=== PATIENT | female | born 1945 | race Caucasian/White ===

== ENCOUNTER 2019-12-27 09:17 | Inpatient (IN) | payer MEDICARE, SELFPAY ==
[2019-12-28 03:14] VITALS: BMI 24.7
[2019-12-29] VITALS (8 sets, daily range): BP systolic 95–115; BP diastolic 56–78; PULSE 78–105; RESP 16–18; TEMP 35.9–36.6; O2SAT 95–99
[2019-12-29] MEDS: Doxycycline Hyclate 100 MG in 0.9 % Sodium Chloride 250 ML 250 MG IV
[2019-12-29] MEDS: 0.9 % Sodium Chloride Flush 3 ML SYRINGE 2 ML IVFLUSH ×4 (05:13→23:10)
[2019-12-29] MEDS: Levothyroxine Sodium 75 MCG TABLET PO (05:48)
[2019-12-29] MEDS: Albuterol/Iprat 2.5/0.5MG 3 ML AMPUL.NEB INHALE ×4 (08:13→21:03)
[2019-12-29] MEDS: Losartan Potassium 25 MG TABLET PO (08:42)
[2019-12-29] MEDS: Calcium + Vitamin D 250 MG TABLET 500 MG PO (08:42)
[2019-12-29] MEDS: Acetaminophen 325 MG TABLET 650 MG PO (08:55)
[2019-12-29] MEDS: guaiFENesin DM 100/10/5 ML 5 ML SYRUP PO ×2 (08:55→13:51)
[2019-12-29] MEDS: Aspirin 81 MG TAB.CHEW PO (08:56)
[2019-12-29] MEDS: Metoprolol Succinate ER 50 MG TAB.ER.24H PO (08:56)
[2019-12-29] MEDS: Multivitamin TABLET 1 TAB PO (08:57)
--- NOTE | 2019-12-29 09:20 | P.PNPL_ITS ---
Objective Data Labs CBC & Chem 7: 12/27/19 07:23 12/27/19 07:23 Labs: Laboratory Results - last 24 hr 12/27/19 12/27/19 12/27/19 07:23 07:23 07:23 WBC 7.6 RBC 4.54 Hgb 14.2 Hct 43.0 MCV 94.7 MCH 31.3 MCHC 33.0 RDW Coeff of Jose 13.3 Plt Count 226 MPV 9.3 L Immature Gran % (Auto) 0.4 Neut % (Auto) 61.6 Lymph % (Auto) 24.2 Valencia % (Auto) 7.8 Eos % (Auto) 5.5 H Baso % (Auto) 0.5 Abs Immat Gran (auto) 0.03 Absolute Lymphs (auto) 1.8 Absolute Monos (auto) 0.6 Absolute Eos (auto) 0.4 Absolute Basos (auto) 0.0 Absolute Nucleated RBC 0.000 Nucleated RBC % (auto) 0.0 Absolute Neutrophils 4.7 ESR Hold Blue Top Sodium 141 Potassium 4.7 D Chloride 109 H Bicarbonate 23 Anion Gap 14 BUN 13 Creatinine 1.04 Estimated Creat Clear 41.9 Est GFR (Non-Af Amer) 52 Random Glucose 132 H Magnesium 2.1 Total Bilirubin 0.5 Direct Bilirubin 0.2 AST 21 ALT 16 Alkaline Phosphatase 111 Troponin I High Sens < 3.5 B-Natriuretic Peptide 12 Total Protein 6.5 Albumin 4.3 SARS-CoV-2 IgG Ab 12/27/19 12/27/19 12/27/19 07:23 13:51 13:51 WBC RBC Hgb Hct MCV MCH MCHC RDW Coeff of Jose Plt Count MPV Immature Gran % (Auto) Neut % (Auto) Lymph % (Auto) Valencia % (Auto) Eos % (Auto) Baso % (Auto) Abs Immat Gran (auto) Absolute Lymphs (auto) Absolute Monos (auto) Absolute Eos (auto) Absolute Basos (auto) Absolute Nucleated RBC Nucleated RBC % (auto) Absolute Neutrophils ESR 19 Hold Blue Top SEE NOTE Sodium Potassium Chloride Bicarbonate Anion Gap BUN Creatinine Estimated Creat Clear Est GFR (Non-Af Amer) Random Glucose Magnesium Total Bilirubin Direct Bilirubin AST ALT Alkaline Phosphatase Troponin I High Sens B-Natriuretic Peptide Total Protein Albumin SARS-CoV-2 IgG Ab Negative Physical Exam Vital Signs and I&O and Narrative: Vital Signs and I&O: Vital Signs Temp 97.9 F 12/29/19 08:00 Pulse 78 12/29/19 08:56 Resp 18 12/29/19 08:00 BP 115/78 12/29/19 08:56 Pulse Ox 97 12/29/19 08:00 Intake & Output 12/28/19 12/29/19 12/29/19 18:59 06:59 18:59 Intake Total 490 / 490 Balance 490 / 490 Intake: Intake, Oral [place] unt 240 / 240 Intake, IV Amoun t 250 / 250 Doxycycline Hy clate 100 mg In 0 250 / 250 .9 % Sodium Ch loride 250 ml @ 250 mls/hr IV Q12H [facility] Rx#: [id number] Body Mass Index 24.7 Const: General: alert HENMT: General nose exam: Abnormal external nose present and Nasal discharge present Eyes: Pupils: Equal, round and reactive pupils present Neck: Neck: Yes normal visual inspection, Yes full ROM and Yes no lymphadenopathy Chest: Chest palpation & inspection: normal inspection of the chest Resp: Auscultation: diminished lung sounds Cardio: Rate: regular rate Rhythm: regular rhythm Heart sounds: S1 normal heart sound present and S2 normal heart sound present GI: Palpation (GI): Soft to palpation and nontender Auscultation: normal bowel sounds : General: Yes no CVA tenderness Back/Spine/Pelvis: Back: no CVA tenderness Skin: General skin exam: rashes and/or lesions noted Neuro: Cranial nerves: Yes Equal, round and reactive pupils present Review of Systems ENT Reports nasal congestion Card Denies chest pain Resp Reports cough GI Denies abdominal pain Musc Denies no additional musculoskeletal complaints Psych Denies no additional psychiatric complaints Elroy/Lymph Denies easy bleeding or lymphadenopathy
--- NOTE | 2019-12-29 12:25 | MHC.CM.PN ---
NURSE HEAD HOST/HOSTESS NOTE ELECTRONIC MEDICAL RECORD REVIEWED ALONG WITH CASE DISCUSSED ON PATIENT ROUNDS , MET WITH PATIENT , SHE VOICED FRUSTRATION THAT SHE FEELS SHE IS NOT GETTING ANY BETTER, PER NURSING DOCUMENTATION PATIENT GETS DYSPNEA ON EXERTIONS AND HAS EX[PIRATORY WHEEZING SHE IS ON 2LITERS OF OXYGEN , PER HOSPITALST SHE TANISHA NOT BE DISCHARGED TODAY , SHE WILL BE CHANGED TO INPATIENT STATUS , UPDATE SENT TO [facility] [phone] EXT 201 discharge plan home independent living at [facility] , with new referral to the [facility] for nursing , (asthma and cpd exacerbation , assessment and reinforcement of teaching n , diagnosis sighn symptom management , medication reconcilation, transportation patient will self arrange , if she is unable to please apoorva chaudhari at [facility] , number above and they will provide transportation (If she is on no oxygen
--- NOTE | 2019-12-29 12:33 | P.PNIM_ITS ---
Subjective Subjective Date of Service: 12/29/19 Interval History: patient admitted for shortness of breath and diagnosed with COPD exacerbation. Today patient complaining of shortness of breath and frequent,coughing spells requiring 1 L of oxygen, no other acute issues overnight. 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 no dizziness Gastrointestinal no nausea, no vomiting no urinary symptoms of urgency, no frequency Physical Exam Vital Signs and I&O and Narrative: Vital Signs and I&O: Vital Signs Temp 97.9 F 12/29/19 11:36 Pulse 105 H 12/29/19 11:36 Resp 18 12/29/19 11:36 BP 109/74 12/29/19 11:36 Pulse Ox 95 12/29/19 11:36 Intake & Output 12/28/19 12/29/19 12/29/19 18:59 06:59 18:59 Intake Total 490 / 490 480 / 480 Output Total Balance 490 / 490 479 / 479 Urine Output (Aver age ml/kg/hr) 0.00 Intake: Intake, Oral [place] unt 240 / 240 480 / 480 Intake, IV Amoun t 250 / 250 Doxycycline Hy clate 100 mg In 0 250 / 250 .9 % Sodium Ch loride 250 ml @ 250 mls/hr IV Q12H [facility] Rx#: [id number] Output: Output, Urine Am ount Other: Meal Refused No NPO No Breakfast % Eate n 100% Lunch % Eaten 100% Body Mass Index 24.7 Physical Exam Constitutional Awake and alert, no distress Neck Supple, Cardiovascular RRR, S1 S2 Respiratory no respiratory distress, bilateral expiratory wheeze, Diminished breath sounds, Diminished lung expansion, Gastrointestinal Normal bowel sounds, Non-distended, No guarding Extremities Normal capillary refill, Calf tenderness Skin Normal Color Neuro nonfocal Objective Data Current Medications Generic Name Dose Route Start Last Admin Trade Name Freq PRN Reason Stop Dose Admin Acetaminophen 650 mg 12/29/19 00:00 12/29/19 08:55 Acetaminophen 325 Mg Tablet PO 650 mg Q6H PRN Administration Pain, Mild (Pain Scale 1-3) Albuterol/Ipratropium 3 ml 12/29/19 08:00 12/29/19 11:32 Albuterol/Iprat 2.5/0.5mg 3 Ml Ampul.Neb INHALE 3 ml RQID RAMANDEEP Administration Aspirin 81 mg 12/29/19 09:00 12/29/19 08:56 Aspirin 81 Mg Tab.Chew PO 81 mg DAILY RAMANDEEP Administration Atorvastatin Calcium 20 mg 12/29/19 21:00 Atorvastatin Calcium 20 Mg Tablet PO BEDTIME [facility] Calcium Carbonate/Cholecalciferol 500 mg 12/29/19 09:00 12/29/19 08:42 Calcium + Vitamin D 250 Mg Tablet PO 500 mg DAILY RAMANDEEP Administration Enoxaparin Sodium 40 mg 12/29/19 14:00 Enoxaparin Sodium 40 Mg/0.4 Ml Syringe SUBCUT Q24H [facility] Fluticasone/Vilanterol 1 puff 12/29/19 08:00 Fluticasone/Vilanterol 200/25 Blst.W.Dev INHALE RDAILY [facility] Guaifenesin/Dextromethorphan 5 ml 12/29/19 00:00 12/29/19 08:55 Guaifenesin Dm 100/10/5 Ml 5 Ml Syrup PO 5 ml Q4H PRN Administration cough/wheeze Doxycycline Hyclate 100 mg/ 250 mls @ 250 mls/hr 12/29/19 12:00 12/29/19 01:3 0 Sodium Chloride IV Infused Q12H [facility] Infusion Levothyroxine Sodium 75 mcg 12/29/19 06:00 12/29/19 05:48 Levothyroxine Sodium 75 Mcg Tablet PO 75 mcg DAILY@0600 [facility] Administration Loratadine 10 mg 12/29/19 00:00 Loratadine 10 Mg Tablet PO DAILY PRN Allergic Symptoms Losartan Potassium 25 mg 12/29/19 09:00 12/29/19 08:42 Losartan Potassium 25 Mg Tablet PO 25 mg DAILY [facility] Administration Protocol Methylprednisolone Sodium Succinate 40 mg 12/29/19 06:00 12/29/19 05:48 Methylprednisolone Sod Succ/Pf 40 Mg/Ml Vial IVPUSH 40 mg Q8H RAMANDEEP Administration Metoprolol Succinate 50 mg 12/29/19 09:00 12/29/19 08:56 Metoprolol Succinate Er 50 Mg Tab.Er.24h PO 50 mg DAILY [facility] Administration Protocol Multivitamins/Vitamin C 1 tab 12/29/19 09:00 12/29/19 08:57 Multivitamin Tablet PO 1 tab DAILY RAMANDEEP Administration Ondansetron HCl 4 mg 12/29/19 00:00 Ondansetron Hcl 4 Mg/2 Ml Vial IVPUSH Q8H PRN Nausea and Vomiting Senna 17.2 mg 12/29/19 00:00 Sennosides 8.6 Mg Tablet PO BEDTIME PRN Constipation Sodium Chloride 2 ml 12/29/19 00:00 12/29/19 08:57 0.9 % Sodium Chloride Flush 3 Ml Syringe IVFLUSH 2 ml QSHIFT RAMANDEEP Administration Labs CBC & Chem 7: 12/27/19 07:23 12/27/19 07:23 Labs: Laboratory Results - last 24 hr 12/27/19 12/27/19 12/27/19 07:23 07:23 07:23 MCV 94.7 MCH 31.3 MCHC 33.0 RDW Coeff of Jose 13.3 Plt Count 226 MPV 9.3 L Immature Gran % (Auto) 0.4 Neut % (Auto) 61.6 Lymph % (Auto) 24.2 Clay % (Auto) 7.8 Eos % (Auto) 5.5 H Baso % (Auto) 0.5 Abs Immat Gran (auto) 0.03 Absolute Lymphs (auto) 1.8 Absolute Monos (auto) 0.6 Absolute Eos (auto) 0.4 Absolute Basos (auto) 0.0 Absolute Nucleated RBC 0.000 Nucleated RBC % (auto) 0.0 Absolute Neutrophils 4.7 ESR Hold Blue Top Bicarbonate 23 Anion Gap 14 Estimated Creat Clear 41.9 Est GFR (Non-Af Amer) 52 Random Glucose 132 H Magnesium 2.1 Total Bilirubin 0.5 Direct Bilirubin 0.2 AST 21 ALT 16 Alkaline Phosphatase 111 Troponin I High Sens < 3.5 B-Natriuretic Peptide 12 Total Protein 6.5 Albumin 4.3 SARS-CoV-2 IgG Ab 12/27/19 12/27/19 12/27/19 07:23 13:51 13:51 MCV MCH MCHC RDW Coeff of Jose Plt Count MPV Immature Gran % (Auto) Neut % (Auto) Lymph % (Auto) Clay % (Auto) Eos % (Auto) Baso % (Auto) Abs Immat Gran (auto) Absolute Lymphs (auto) Absolute Monos (auto) Absolute Eos (auto) Absolute Basos (auto) Absolute Nucleated RBC Nucleated RBC % (auto) Absolute Neutrophils ESR 19 Hold Blue Top SEE NOTE Bicarbonate Anion Gap Estimated Creat Clear Est GFR (Non-Af Amer) Random Glucose Magnesium Total Bilirubin Direct Bilirubin AST ALT Alkaline Phosphatase Troponin I High Sens B-Natriuretic Peptide Total Protein Albumin SARS-CoV-2 IgG Ab Negative Progress Note: A&P (1) Acute exacerbation of COPD with asthma: Status: Acute Assessment and Plan: patient continued to have persistent symptoms of coughing spells and shortness of breath, will continue IV antibiotics IV steroids will add schedule cough medication since patient continued to require oxygen will obtain home O2 eval prior to discharge, encourage ambulation and incentive spirometry. (2) Acute and chronic respiratory failure with hypoxia: Status: Acute Assessment and Plan: Acute hypoxic respiratory failure likely related to COPD exacerbation and respiratory infection will obtain home O2 eval prior to discharge. (3) Hypertension: Problem details: Status: Inactive Assessment and Plan: BP currently borderline low on home medication losartan and metoprolol will follow blood pressure if continued to be low then will discontinue losartan. (4) Hypothyroidism: Status: Inactive Assessment and Plan: Continue Synthroid.
[2019-12-29] MEDS: Doxycycline Hyclate 100 MG in 0.9 % Sodium Chloride 250 ML 166 MG IV ×2 (13:51→23:08)
[2019-12-29] MEDS: Enoxaparin Sodium 40 MG/0.4 ML SYRINGE SUBCUT (13:54)
[2019-12-29] MEDS: Fluticasone/Vilanterol 200/25 BLST.W.DEV 1 PUFF INHALE (15:20)
[2019-12-29] MEDS: Atorvastatin Calcium 20 MG TABLET PO (20:44)
[2019-12-29] MEDS: Sennosides 8.6 MG TABLET 17.2 MG PO (20:51)
[2019-12-30] VITALS: BP 111/69; PULSE 19; RESP 19; TEMP 36.3; O2SAT 97
[2019-12-30 04:00] VITALS: BP 136/69; PULSE 92; RESP 19; TEMP 36.9; O2SAT 97
[2019-12-30] MEDS: Levothyroxine Sodium 75 MCG TABLET PO (06:58)
[2019-12-30] MEDS: Albuterol/Iprat 2.5/0.5MG 3 ML AMPUL.NEB INHALE ×3 (07:52→11:38)
[2019-12-30 08:00] VITALS: BP 124/81; PULSE 91; RESP 16; TEMP 36.8; O2SAT 95
[2019-12-30] MEDS: 0.9 % Sodium Chloride Flush 3 ML SYRINGE 2 ML IVFLUSH (08:53)
[2019-12-30] MEDS: Losartan Potassium 25 MG TABLET PO (08:53)
[2019-12-30] MEDS: Multivitamin TABLET 1 TAB PO (08:53)
[2019-12-30] MEDS: Aspirin 81 MG TAB.CHEW PO (08:55)
[2019-12-30] MEDS: Metoprolol Succinate ER 50 MG TAB.ER.24H PO (08:55)
[2019-12-30] MEDS: Calcium + Vitamin D 250 MG TABLET 500 MG PO (08:56)
[2019-12-30] MEDS: predniSONE 20 MG TABLET PO (09:01)
--- NOTE | 2019-12-30 11:00 | P.DS_ITS ---
DS: Providers Provider Date of admission: 12/29/19 12:45 Primary care physician: Deepti Leiva MD Consults: 12/28/19 06:12 Consult to Pulmonology Routine Consulting Provider: Khalif Ruiz Reason for consultation: Persistant asthma/COPD DS: Diagnosis Discharge Diagnosis (1) Acute exacerbation of COPD with asthma: Status: Acute (2) Acute and chronic respiratory failure with hypoxia: Status: Acute (3) Hypertension: Status: Inactive Problem details: (4) Hypothyroidism: Status: Inactive DS: Summary Hospital Course Hospital Course: 74-year-old female patient with past medical history significant for asthma/ COPD presented to [facility] due to shortness of breath and wheezing associated with cough productive of yellow phlegm patient denied any fever chills patient was recently discharged from [facility] on December 11 after being treated for sepsis related to COPD with acute hypoxia, patient was readmitted to [facility] with acute COPD exacerbation and was placed on IV steroid doxycycline and updraft treatment patient responded well to above therapy and was seen in consultation by Dr. Ruiz due to small airway disease patient will be continued on by mouth doxycycline to finish a total 7 day course of antibiotic and also being discharged home on 4 more days of by mouth steroids, she will be continued on steroid inhaler spirivia will be added, patient has been recommended to have close outpatient follow-up with pulmonology, a CTA chest showed mckeon centrilobular emphysematous changes there were no interstitial reticular opacity no bronchiectasis noted. Home O2 eval Obtain prior to discharge and patient does not require home O2 since oxygenation dropped to 91% with ambulation. Patient is being discharged home with albuterol updraft , VNA services and outpatient follow-up with Dr. Jones on January 02. Status at Discharge Overall status at discharge: patient is not back to baseline Time Spent with Patient Time attestation: Total time spent providing and/or coordinating discharge services: Time spent: Greater than 30 minutes Physical Exam Vital Signs and I&O and Narrative: Vital Signs and I&O: Vital Signs Temp 98.3 F 12/30/19 08:00 Pulse 91 12/30/19 08:00 Resp 16 12/30/19 08:00 BP 124/81 12/30/19 08:00 Pulse Ox 95 12/30/19 08:00 Intake & Output 12/29/19 12/30/19 12/30/19 18:59 06:59 18:59 Intake Total 1150 / 2180 1030 / 2180 Output Total Balance 1148 / 2178 1030 / 2178 Urine Output (Aver age ml/kg/hr) 0.00 0.00 Intake: Intake, Oral [place] unt 900 / 1680 780 / 1680 Intake, IV Amoun t 250 / 500 250 / 500 Doxycycline Hy clate 100 mg In 0 250 / 500 250 / 500 .9 % Sodium Ch loride 250 ml @ 250 mls/hr IV Q12H [facility] Rx#: [id number] Output: Output, Urine Am ount Other: Meal Refused No NPO No Breakfast % Eate n 100% Lunch % Eaten 100% Dinner % Eaten 100% Number of Unmeas ured Voids 2 Urine Bathroom Body Mass Index 24.7 Discharge Plan Discharge Patient Disposition: Home, Self-Care Referrals: [facility] [Outside] Deepti Leiva MD [Primary Care Provider] - Discharge Medications: New doxycycline hyclate 100 mg Tablet 100 mg PO Q12H Qty: 8 RF: 0 prednisone 20 mg Tablet 20 mg PO DAILY Qty: 4 RF: 0 dextromethorphan-guaifenesin 10-100 mg/5 mL Syrup 10 ml PO Q4H PRN (Reason: cough/wheeze) Qty: 237 RF: 0 albuterol sulfate 2.5 mg /3 mL (0.083 %) solution for nebulization 10 mg inhalation QID PRN (Reason: shortness of breath or wheezing) Qty: 90 RF: 0 Continued albuterol sulfate 90 mcg/actuation Hfa Aerosol Inhaler 2 puff INHALATION Q4H PRN (Reason: Respiratory Distress) RF: 0 aspirin 81 mg Tablet 81 mg PO DAILY RF: 0 atorvastatin 20 mg Tablet 20 mg PO BEDTIME RF: 0 budesonide-formoterol [Symbicort] 80-4.5 mcg/actuation Hfa Aerosol Inhaler 1 puff INHALATION BID RF: 0 cholecalciferol (vitamin D3) 50 mcg (2,000 unit) Tablet 50 mcg PO DAILY RF: 0 levothyroxine 75 mcg Tablet 75 mcg PO DAILY RF: 0 loratadine 10 mg Tablet 10 mg PO DAILY PRN (Reason: Allergy Symptoms) RF: 0 losartan 50 mg Tablet 50 mg PO DAILY RF: 0 metoprolol succinate 50 mg Tablet Extended Release 24 Hr 50 mg PO DAILY RF: 0 multivitamin Tablet 1 tab PO DAILY RF: 0 Calcium + D 1 TAB 1 tab PO DAILY RF: 0 Discharge Orders: Discharge Order (Routine); Ordered 12/30/19 Ordered By: Lacy Puente Activity on Discharge: As tolerated Discharge Date/Time: 12/30/19 15:27 Visit Report Forms: Patient Portal Discharge page Care Plan Goals: as per discharge plan Health Concerns: as per discharge plan Plan of Treatment: close outpatient follow-up with PCP and pulmonology Dr. Jones
[2019-12-30] MEDS: Fluticasone/Vilanterol 200/25 BLST.W.DEV 1 PUFF INHALE (11:36)
--- NOTE | 2019-12-30 12:00 | P.DS_ITS ---
DS: Providers Provider Date of admission: 12/29/19 12:45 Primary care physician: Deepti Leiva MD Consults: 12/28/19 06:12 Consult to Pulmonology Routine Consulting Provider: Khalif Ruiz Reason for consultation: Persistant asthma/COPD DS: Diagnosis Discharge Diagnosis (1) Acute exacerbation of COPD with asthma: Status: Acute (2) Acute and chronic respiratory failure with hypoxia: Status: Acute (3) Hypertension: Status: Inactive Problem details: (4) Hypothyroidism: Status: Inactive DS: Summary Hospital Course Hospital Course: 74-year-old female patient with past medical history significant for asthma/ COPD presented to [facility] due to shortness of breath and wheezing associated with cough productive of yellow phlegm patient denied any fever chills patient was recently discharged from [facility] on December 11 after being treated for sepsis related to COPD with acute hypoxia, patient was readmitted to [facility] with acute COPD exacerbation and was placed on IV steroid doxycycline and updraft treatment patient responded well to above therapy and was seen in consultation by Dr. Ruiz due to small airway disease patient will be continued on by mouth doxycycline to finish a total 7 day course of antibiotic and also being discharged home on 4 more days of by mouth steroids, she will be continued on steroid inhaler spirivia will be added, patient has been recommended to have close outpatient follow-up with pulmonology, a CTA chest showed mckeon centrilobular emphysematous changes there were no interstitial reticular opacity no bronchiectasis noted. Home O2 eval Obtain prior to discharge and patient does not require home O2 since oxygenation dropped to 91% with ambulation. Patient is being discharged home with albuterol updraft , VNA services and outpatient follow-up with Dr. Jones on January 02. Time Spent with Patient Time attestation: Total time spent providing and/or coordinating discharge services: Physical Exam Vital Signs and I&O and Narrative: Vital Signs and I&O: Vital Signs Temp 98.3 F 12/30/19 08:00 Pulse 91 12/30/19 08:00 Resp 16 12/30/19 08:00 BP 124/81 12/30/19 08:00 Pulse Ox 95 12/30/19 08:00 Intake & Output 12/29/19 12/30/19 12/30/19 18:59 06:59 18:59 Intake Total 1150 / 2180 1030 / 2180 Output Total 2 / 2 Balance 1148 / 2178 1030 / 2178 Urine Output (Aver age ml/kg/hr) 0.00 0.00 Intake: Intake, Oral [place] unt 900 / 1680 780 / 1680 Intake, IV Amoun t 250 / 500 250 / 500 Doxycycline Hy clate 100 mg In 0 250 / 500 250 / 500 .9 % Sodium Ch loride 250 ml @ 250 mls/hr IV Q12H [facility] Rx#: [id number] Output: Output, Urine Am ount 2 / 2 Other: Meal Refused No NPO No Breakfast % Eate n 100% Lunch % Eaten 100% Dinner % Eaten 100% Number of Unmeas ured Voids 2 Urine Bathroom Body Mass Index 24.7 Discharge Plan Discharge Patient Disposition: Home, Self-Care Referrals: Deepti Leiva MD [Primary Care Provider] - Discharge Medications: New dextromethorphan-guaifenesin 10-100 mg/5 mL Syrup 10 ml PO Q4H PRN (Reason: cough/wheeze) Qty: 237 RF: 0 doxycycline hyclate 100 mg Tablet 100 mg PO Q12H Qty: 8 RF: 0 prednisone 20 mg Tablet 20 mg PO DAILY Qty: 4 RF: 0 albuterol sulfate 2.5 mg /3 mL (0.083 %) solution for nebulization 10 mg inhalation QID PRN (Reason: shortness of breath or wheezing) Qty: 90 RF: 0 Continued albuterol sulfate 90 mcg/actuation Hfa Aerosol Inhaler 2 puff INHALATION Q4H PRN (Reason: Respiratory Distress) RF: 0 aspirin 81 mg Tablet 81 mg PO DAILY RF: 0 atorvastatin 20 mg Tablet 20 mg PO BEDTIME RF: 0 budesonide-formoterol [Symbicort] 80-4.5 mcg/actuation Hfa Aerosol Inhaler 1 puff INHALATION BID RF: 0 cholecalciferol (vitamin D3) 50 mcg (2,000 unit) Tablet 50 mcg PO DAILY RF: 0 levothyroxine 75 mcg Tablet 75 mcg PO DAILY RF: 0 loratadine 10 mg Tablet 10 mg PO DAILY PRN (Reason: Allergy Symptoms) RF: 0 losartan 50 mg Tablet 50 mg PO DAILY RF: 0 metoprolol succinate 50 mg Tablet Extended Release 24 Hr 50 mg PO DAILY RF: 0 multivitamin Tablet 1 tab PO DAILY RF: 0 Calcium + D 1 TAB 1 tab PO DAILY RF: 0 Discharge Orders: Discharge Order (Routine); Ordered 12/30/19 Ordered By: Lacy Puente Activity on Discharge: As tolerated Visit Report Forms: Patient Portal Discharge page Care Plan Goals: as per discharge plan Health Concerns: as per discharge plan Plan of Treatment: close outpatient follow-up with PCP and pulmonology Dr. Jones
[2019-12-30 12:02] VITALS: PULSE 104; O2SAT 96
--- NOTE | 2019-12-30 12:18 | MHC.CM.PN ---
NURSE MICROARRAY ANALYST NOTE ELECTRNIC MEDICAL RECORD REVIED ALONG WITH CASE DISCUSSED ON PATIENT CARE ROUNDS PATIENT WAS EVALUATEED BY THE RESPIRATORY THEARPIST AND DOES NOT QUALIFY FOR HOME OXYGEN. . PATIENT WILL BE DISCHARGED HOME TODAY WITH NEW REFERRAL TO THE [facility] FOR DIAGNOSISI SIGHN SYMPTOM MANAGEMENT AND DETAILED PLAN OF ACTION WHM TO CALL FOR WHAT AND WHEN . PCP DR BAEZ PATIENT TO CALL FOR POST HOSPITALDISCHARGE FOLLOW UP TRANSPORTATION PATIENT WILL BE SELF ARRANGING WITH FRIEND DR PADMINI BO , APPOINTMENT FOR JANUARY 03 2020 AT 4PM IMM COMPLETED 12/29/2019
[2019-12-30 16:37] LABS: Immunoglobulin G 600 mg/dL (600-1540)
--- NOTE | 2019-12-30 17:16 | P.F2F_ITS ---
Service Date Service Date: 12/30/19 Reasons for Services MD overseeing care: Lacy Puente MD Homebound: Leaving the home is medically contraindicated at this time without the asist of a device and/or another person due th the listed conditions above and below. Certification: Based on the above findings, I certify that this patient is confined to the home and needs intermittent senior care care, physical therapy and/or speech therapy, or continues to need occupational therapy. The patient is under my care, and I have initiated the establishment of the plan of care. The patient will be followed by a physician who will periodically review the plan of care. patient diagnosed to have COPD exacerbation treated with oxygen and now being discharged on steroids patient continued to have shortness of breath with activity therefore being discharged home with VNA services for managing oxygen and updraft treatment.
[2019-12-30 19:41] LABS: Immunoglobulin E 69 kU/L (<OR=114)
[2020-01-01 15:20] LABS: Anti Nuclear Antibody Screen NEGATIVE (NEGATIVE)
== END 2019-12-30 15:27 | disposition home or self-care (01) | DRG 190 ==
PROVIDERS: Nurse Practitioner Acute Care; Admitting Provider Internal Medicine; Emergency Provider Emergency Medicine; PCP Internal Medicine; Visit Provider Hospitalist
DX: J43.9 Emphysema, unspecified (principal); J96.21 Acute and chronic respiratory failure with hypoxia; J45.901 Unspecified asthma with (acute) exacerbation; E03.9 Hypothyroidism, unspecified; I10 Essential (primary) hypertension; R91.1 Solitary pulmonary nodule; Z87.891 Personal history of nicotine dependence; Z11.59 Encounter for screening for other viral diseases; Z88.0 Allergy status to penicillin; Z79.82 Long term (current) use of aspirin; Z79.890 Hormone replacement therapy; Z79.899 Other long term (current) drug therapy
CPT/HCPCS: 36415; 71045; 71275; 80051; 80076; 82565; 82784; 82785; 82947; 83735; 83880; 84484; 84520; 85025; 85652; 86038; 86039; 86769; 93005; 94644; 94664; J1650; J2920; J2930; J3475; Q9967

== ENCOUNTER → 2020-01-03 15:48 | Outpatient (BNVA) | payer MEDICARE, SELFPAY | PROVIDERS: PCP Internal Medicine; Visit Provider Internal Medicine | DX: J44.9 Chronic obstructive pulmonary disease, unspecified (principal); J96.21 Acute and chronic respiratory failure with hypoxia; Z79.899 Other long term (current) drug therapy | CPT/HCPCS: 99213 ==

== ENCOUNTER 2020-01-19 09:59 | Outpatient (REF) | payer MEDICARE, SELFPAY ==
--- NOTE | 2020-01-19 | PFT_ITS ---
INDICATION: Shortness of breath. SPIROMETRY: The FEV1 to FVC of 52% with an FEV1 of 1.11 L which is 52% predicted and an FVC of 2.12 L which is 75% predicted. There was a significant response to bronchodilators noted. The patient also has significant small airways disease. Maximum voluntary ventilation only 54% predicted. LUNG VOLUMES: Total lung capacity 76% predicted. DIFFUSION CAPACITY: DLCO 21% predicted. COMPARISONS: None available. INTERPRETATION: There is an obstructive ventilatory defect consistent with mixylipa-th-wjxvct chronic obstructive pulmonary disease. Significant response to bronchodilators noted and significant small airways disease also noted. There is a moderate to severe decrease in the maximum voluntary ventilation as well. In addition to that, the patient does have a mild restrictive ventilatory defect. Therefore, underlying parenchymal lung conditions cannot be ruled out. The patient has a severe diffusion impairment secondary to the underlying emphysema and other parenchymal lung conditions and pulmonary vascular conditions should be considered. Clinical correlation warranted. MD ARNULFO Mills/NEEL / [phone]
== END 2020-01-19 10:00 | disposition home or self-care (01) ==
LOC: HO.RESP 09:59
PROVIDERS: Visit Provider Internal Medicine
DX: J96.21 Acute and chronic respiratory failure with hypoxia (principal)
CPT/HCPCS: 94060; 94727; 94729

== ENCOUNTER → 2020-01-23 10:12 | Outpatient (BNVA) | payer MEDICARE, SELFPAY | PROVIDERS: PCP Internal Medicine; Visit Provider Internal Medicine | DX: J44.9 Chronic obstructive pulmonary disease, unspecified (principal); Z79.51 Long term (current) use of inhaled steroids | CPT/HCPCS: 99213 ==

== ENCOUNTER → 2020-04-23 09:24 | Outpatient (BNVA) | payer MEDICARE, SELFPAY | PROVIDERS: PCP Internal Medicine; Visit Provider Internal Medicine | DX: J45.909 Unspecified asthma, uncomplicated (principal); J44.9 Chronic obstructive pulmonary disease, unspecified | CPT/HCPCS: 99212 ==

== ENCOUNTER 2020-07-19 07:47 | Inpatient (IN) | payer MEDICARE, SELFPAY ==
[2020-07-19] VITALS (12 sets, daily range): BP systolic 90–126; BP diastolic 36–85; PULSE 74–120; RESP 15–26; TEMP 36.6–36.9; O2SAT 95–100; BMI 23.7; BMI 27.7
--- NOTE | ~2020-07-19 | XR_ITS ---
EXAMINATION: XR CHEST CLINICAL INFORMATION: Dyspnea COMPARISON: Chest radiographs 12/27/2019, 12/01/2019; CTA chest 12/27/2019 TECHNIQUE: Portable upright AP the heart is normal in size. FINDINGS: The vascularity is normal. There is no pneumothorax or pneumomediastinum. No lobar or segmental airspace consolidation or definite groundglass opacity. There is mild accentuation interstitial markings similar to prior radiograph and CT. There is no engorgement of the vascular pedicle or cephalization of flow to suggest interstitial edema. The hilar and mediastinal contours and bony structures are unremarkable. XR/XR chest 1V IMPRESSION: No acute intrathoracic disease.
--- NOTE | 2020-07-19 07:59 | ECG_ITS ---
Test Reason : ASTHMA Blood Pressure : / mmHG Vent. Rate : 098 BPM Atrial Rate : 098 BPM P-R Int : 164 ms QRS Dur : 078 ms QT Int : 380 ms P-R-T Axes : 071 075 068 degrees QTc Int : 485 ms Normal sinus rhythm Normal ECG When compared with ECG of 27-DEC-2019 07:11, No significant change was found Referred By: Silva Duarte Electronically Signed By:Farooq Woodruff
--- NOTE | 2020-07-19 08:03 | ED_ITS ---
HPI - Asthma General Chief Complaint: Asthma Stated Complaint: DIFF BREATHING, HOME NEB NOT WORKING 88% Time Seen by Provider: 07/19/20 07:58 Source: patient and EMS Limitations: no limitations History of Present Illness HPI Narrative: 74 yo female hx of asthma COPD c/o dyspnea and cough x 3 days getting worse x this AM not responding to neb treatments - EMS found her 87% on RA does not use home O2 MD complaint: asthma attack , shortness of breath and wheezing Onset (ago): day(s) (3) Severity: moderate Context: none known Associated symptoms: productive cough Asthma History: childhood onset Treatments Prior to Arrival: inhaled bronchodilator and oxygen Related Data Home Medications Medication Instructions Recorded Confirmed Calcium + D 1 tab PO DAILY 12/28/19 01/23/20 aspirin 81 mg PO DAILY 12/28/19 01/23/20 atorvastatin 20 mg PO BEDTIME 12/28/19 07/19/20 cholecalciferol (vitamin D3) 50 mcg PO DAILY 12/28/19 01/23/20 levothyroxine 75 mcg PO DAILY 12/28/19 07/19/20 loratadine 10 mg PO DAILY PRN 12/28/19 01/23/20 losartan 50 mg PO DAILY 12/28/19 07/19/20 multivitamin 1 tab PO DAILY 12/28/19 01/23/20 metoprolol succinate 50 mg 50 mg PO DAILY 03/06/20 07/19/20 tablet,extended release 24 hr fluticasone propion-salmeterol 1 puff PO Q12H 07/19/20 07/19/20 [Katlin Hernandes] Previous Rx's Medication Instructions Recorded albuterol sulfate 90 mcg/actuation 2 puff INHALATION Q4H PRN 30 Days 07/11/20 aerosol inhaler #1 ea albuterol sulfate 2.5 mg INHALATION Q4-6H PRN 30 07/12/20 Days #90 ml Allergies Allergy/AdvReac Type Severity Reaction Status Date / Time penicillin V Allergy Unknown rash Verified 04/23/20 09:34 Review of Systems Review of Systems: Constitutional : No Fever, No Chills ENT/Mouth : No Hoarseness, No sore throat, No Rhinorrhea Eyes: No Redness, No Discharge, No Vision Changes Cardiovascular : No Chest Pain, positive SOB, positive Dyspnea on Exertion, No Edema Respiratory : positive Cough, No Sputum, positive Wheezing, Gastrointestinal : No Nausea, No Vomiting, No Diarrhea, No abdominal Pain Genitourinary : No Dysuria, No Hematuria Musculoskeletal : No joint pain, No Myalgias Skin : No rash Neuro : No Weakness, No Numbness, No Headache Psych : No anxiety, depression Heme/Lymph: No Bruising, No Bleeding Endocrine : No Polyuria, No Polydipsia All other systems reviewed and are negative [facility] Past Medical History Attestation statement: The following information was validated with the patient. Medical History Acute and chronic respiratory failure with hypoxia Acute exacerbation of COPD with asthma Allergic rhinitis Asthma COPD (chronic obstructive pulmonary disease) History of smoking at least 1 pack per day for at least 30 years Hypertension Hypothyroidism Social History Social History (Updated 07/19/20 @ 08:06 by Silva Duarte DO) Smoking Status: Former smoker Use of substances other than those prescribed or required for medical reasons: No Advance Directives: Yes Advance Directives Information Provided: Yes Advance Directives on File: No Physical Exam Vital Signs: Vital Signs: Last Vital Signs Temp 98.4 F 07/19/20 08:07 Pulse 96 07/19/20 08:34 Resp 24 H 07/19/20 08:07 BP 118/85 07/19/20 08:07 Pulse Ox 100 07/19/20 08:07 Body Mass Index 23.7 Appearance: Alert. Oriented X3. Anxiuos, mild acute distress. Eyes: Pupils equal, round and reactive to light. ENT: Pharynx normal. Neck: Normal inspection. Neck supple. CVS: Normal heart rate and rhythm. Pulses normal. Respiratory: Mild respiratory distress retractions and tachypnea. Breath sounds decreased with wheezing Abdomen: Soft and nontender. Skin: Skin warm and dry. Normal skin color. Normal skin turgor. Extremities: No lower extremity edema. No calf ttp Neuro: Oriented X 3. No motor deficit. No sensory deficit. Course Course Course Narrative: lactic acidosid likely due to albuterol use and not infection or severe sepsis hypoxia likely cause of elevated troponin - had chest pain at home when struggling to breathe, aspirin ordered will admit for further management, desaturates to high 80s off O2, still wheezing but much improved MDM - Asthma MDM Narrative Medical decision making narrative: 74 yo female with asthma and COPD here with dyspnea and wheezing not responding to home nebs found to be hypoxic, at this time repeat 5mg neb and IV steroids ordered, labs, CXR, COVID swab, dispo per results and findings. Lab Data Result diagrams: 07/19/20 09:11 07/19/20 09:11 Labs: Lab Results 07/19/20 07/19/20 07/19/20 Range/Units 09:11 09:11 09:11 WBC 9.2 (4.8-10.8) X10*3/uL RBC 4.63 (4.20-5.50) X10*6/uL Hgb 13.9 (12.0-16.0) g/dl Hct 42.7 (37-47) % MCV 92.2 (80-98) fL MCH 30.0 (27.0-33.0) pg MCHC 32.6 (31.0-35.0) g/dl RDW 13.9 (11.0-16.0) % Plt Count 242 (160-400) X10*3/uL MPV 9.2 L (9.4-12.3) fL Immature Gran % (Auto) 0.3 (0.0-0.4) % Neut % (Auto) 73.8 H (45-73) % Lymph % (Auto) 13.6 L (20-40) % Tyler % (Auto) 6.7 (2-11) % Eos % (Auto) 4.8 H (0-4) % Baso % (Auto) 0.8 (0-2) % Lymph # (Auto) 1.3 (1.2-4.9) X10*3/uL Tyler # (Auto) 0.6 (0.1-1.2) X10*3/uL Eos # (Auto) 0.4 (0.0-0.4) X10*3/uL Baso # (Auto) 0.1 (0.0-0.2) X10*3/uL Abs Immat Gran (auto) 0.03 (0.00-0.03) X10*3/uL Absolute Neuts (auto) 6.8 (2.0-8.3) X10*3/uL Absolute Nucleated RBC 0.000 (0.0-0.012) X10*3/uL Nucleated RBC % (auto) 0.0 (0.0-0.2) /100WBC Hold Blue Top SEE NOTE Sodium 141 (135-145) mmol/L Potassium 4.1 (3.3-5.1) mmol/L Chloride 107 (96-108) mmol/L Carbon Dioxide 22 (22-29) mmol/L Anion Gap 16 (12-20) BUN 11 (9-16) mg/dL Creatinine 0.93 (0.5-1.4) mg/dL Estim Creat Clear Calc 41.3 Estimated GFR 59 Random Glucose 124 H (60-115) mg/dL Lactic Acid (0.5-2.0) mmol/L Calcium 9.2 (8.4-10.2) mg/dL Magnesium 2.2 (1.6-2.6) mg/dL Total Bilirubin 0.6 (0.0-1.0) mg/dL Direct Bilirubin 0.3 (0.0-0.5) mg/dL AST 30 (5-31) U/L ALT 20 (0-31) U/L Alkaline Phosphatase 93 (39-117) U/L Troponin I High Sens (<3.5-17.0) ng/L B-Natriuretic Peptide (<100) pg/mL Total Protein 7.3 (6.5-8.0) g/dL Albumin 4.7 (3.5-5.0) g/dL Lipase 57 (8-78) U/L 07/19/20 07/19/20 Range/Units 09:11 09:11 WBC (4.8-10.8) X10*3/uL RBC (4.20-5.50) X10*6/uL Hgb (12.0-16.0) g/dl Hct (37-47) % MCV (80-98) fL MCH (27.0-33.0) pg MCHC (31.0-35.0) g/dl RDW (11.0-16.0) % Plt Count (160-400) X10*3/uL MPV (9.4-12.3) fL Immature Gran % (Auto) (0.0-0.4) % Neut % (Auto) (45-73) % Lymph % (Auto) (20-40) % [place] % (Auto) (2-11) % Eos % (Auto) (0-4) % Baso % (Auto) (0-2) % Lymph # (Auto) (1.2-4.9) X10*3/uL Tyler # (Auto) (0.1-1.2) X10*3/uL Eos # (Auto) (0.0-0.4) X10*3/uL Baso # (Auto) (0.0-0.2) X10*3/uL Abs Immat Gran (auto) (0.00-0.03) X10*3/uL Absolute Neuts (auto) (2.0-8.3) X10*3/uL Absolute Nucleated RBC (0.0-0.012) X10*3/uL Nucleated RBC % (auto) (0.0-0.2) /100WBC Hold Blue Top Sodium (135-145) mmol/L Potassium (3.3-5.1) mmol/L Chloride (96-108) mmol/L Carbon Dioxide (22-29) mmol/L Anion Gap (12-20) BUN (9-16) mg/dL Creatinine (0.5-1.4) mg/dL Estim Creat Clear Calc Estimated GFR Random Glucose (60-115) mg/dL Lactic Acid 3.7 H* (0.5-2.0) mmol/L Calcium (8.4-10.2) mg/dL Magnesium (1.6-2.6) mg/dL Total Bilirubin (0.0-1.0) mg/dL Direct Bilirubin (0.0-0.5) mg/dL AST (5-31) U/L ALT (0-31) U/L Alkaline Phosphatase (39-117) U/L Troponin I High Sens 306.9 H (<3.5-17.0) ng/L B-Natriuretic Peptide 20 (<100) pg/mL Total Protein (6.5-8.0) g/dL Albumin (3.5-5.0) g/dL Lipase (8-78) U/L ECG Data Attestation: I personally reviewed and interpreted this ECG as follows: ECG interpretation date: 07/19/20 ECG interpretation time: 08:57 Interpretation: Rate: 98 Rhythm: NSR [place]: normal Normal P waves. Normal FILIBERTO. Normal QRS complex. ST T wave : normal, no LAKISHA qTC: normal prior studies: no acute ischemia The study has been interpreted contemporaneously by me. . Critical Care Time Critical Care Time Critical Care Time: Yes Total Critical Care Time: 30 Attestation: hour long neb, IV steroids, IV antibiotics, repeat assessment I attest to this time spent taking care of the patient Discharge Plan Discharge Clinical Impression: COPD (chronic obstructive pulmonary disease), Elevated troponin, Acidosis, lactic Patient Disposition: Admitted As Inpatient
[2020-07-19] MEDS: Albuterol Sulfate (0.083%) 2.5 MG/3 ML VIAL.NEB 5 MG INHALE ×2 (08:32→12:49)
[2020-07-19] MEDS: 0.9 % Sodium Chloride 500 ML IV ×2 (08:45→10:30)
[2020-07-19] MEDS: methylPREDNISolone Sod Succ 125 MG/2 ML VIAL IVPUSH (08:45)
[2020-07-19 09:17] LABS: MANUAL DIFF FLAG NO
[2020-07-19 09:24] LABS: Basophils Absolute Auto 0.1 X10*3/uL (0.0-0.2); Basophils Percent Auto 0.8 % (0-2); Eosinophils Absolute Auto 0.4 X10*3/uL (0.0-0.4); Eosinophils Percent Auto 4.8 % (0-4); Hematocrit 42.7 % (37-47); Hemoglobin 13.9 g/dl (12.0-16.0); Imm Gran Abs Auto 0.03 X10*3/uL (0.00-0.03); Imm Gran Pct Auto 0.3 % (0.0-0.4); Lymphocytes Absolute Auto 1.3 X10*3/uL (1.2-4.9); Lymphocytes Percent Auto 13.6 % (20-40); Mean Corpuscular HGB Conc 32.6 g/dl (31.0-35.0); Mean Corpuscular Volume 92.2 fL (80-98); Mean Platelet Volume 9.2 fL (9.4-12.3); Monocytes Absolute Auto 0.6 X10*3/uL (0.1-1.2); Monocytes Percent Auto 6.7 % (2-11); Neutrophils Absolute Auto 6.8 X10*3/uL (2.0-8.3); Neutrophils Percent Auto 73.8 % (45-73); Platelet Count 242 X10*3/uL (160-400); Red Blood Count 4.63 X10*6/uL (4.20-5.50); Red Cell Distribution Width 13.9 % (11.0-16.0); White Blood Count 9.2 X10*3/uL (4.8-10.8)
[2020-07-19 09:48] LABS: Alanine Aminotransferase 20 U/L (0-31); Albumin Level 4.7 g/dL (3.5-5.0); Alkaline Phosphatase 93 U/L (39-117); Anion Gap 16 (12-20); Aspartate Amino Transferase 30 U/L (5-31); Bilirubin Direct 0.3 mg/dL (0.0-0.5); Bilirubin Total 0.6 mg/dL (0.0-1.0); Blood Urea Nitrogen 11 mg/dL (9-16); Calcium 9.2 mg/dL (8.4-10.2); Carbon Dioxide 22 mmol/L (22-29); Chloride 107 mmol/L (96-108); Creatinine Clr Calc Pharmacy 41.3; Estimated Glomerular Filt Rate 59; Glucose Random 124 mg/dL (60-115); Lactic Acid 3.7 mmol/L (0.5-2.0); Lipase 57 U/L (8-78); Magnesium 2.2 mg/dL (1.6-2.6); Potassium 4.1 mmol/L (3.3-5.1); Sodium 141 mmol/L (135-145); Total Protein 7.3 g/dL (6.5-8.0)
[2020-07-19 09:59] LABS: B Type Natriuretic Peptide 20 pg/mL (<100); Troponin-I High Sensitivity 306.9 ng/L (<3.5-17.0)
[2020-07-19] MEDS: Aspirin 81 MG TAB.CHEW 162 MG PO (10:28)
[2020-07-19] MEDS: cefTRIAXone sodium 1 GM in 0.9 % Sodium Chloride 50 ML IV (10:32)
[2020-07-19 10:50] LABS: COVID-19 Test Negative (Negative); IDNOW Serial# 9DD0AD1C
[2020-07-19 11:17] LABS: Reflex Lactate? Lactic Acid Added
[2020-07-19] MEDS: Doxycycline Hyclate 100 MG in 0.9 % Sodium Chloride 250 ML 166.67 MG IV (11:59)
[2020-07-19 14:50] LABS: ~Lactic Acid-LAB USE ONLY 1.8 mmol/L (0.5-2.0)
--- NOTE | 2020-07-19 17:31 | PM.IMHP ---
History of Present Illness Date of Service: 07/19/20 Chief Complaint: Shortness of breath, wheezing A 74 years old lady with PMH of asthma, COPD who presented to the hospital with worsening shortness of breath and wheezing for the last 4 days or so. The patient reports five days ago she started to feel increased shortness of breath. She used her inhalers with no resolution of the symptoms then she tried nebulizer multiple occasions and with frequency of almost every 4 hours with worsening dyspnea on exertion as she was unable to walk irregular distant as she did before. She denies any chest pain, palpitation, fever, chills. EMS was called today for worsening dyspnea and found her oxygen saturation to be around 87% on room air. The emergency she received steroids and nebulizers with good response. Admitted further evaluation and treatment Review of Systems Review of Systems: No fever, chills or weakness No chest pain, palpitation Increased shortness of breath and wheezes No abdominal pain, nausea or vomiting No urinary symptoms No any rash or wounds [facility] Medical History (Updated 07/19/20 @ 17:34 by Nura Esposito MD) Acute and chronic respiratory failure with hypoxia Acute exacerbation of COPD with asthma Allergic rhinitis Asthma COPD (chronic obstructive pulmonary disease) History of smoking at least 1 pack per day for at least 30 years Hypertension Hypothyroidism Social History Smoking Status: Former smoker Use of substances other than those prescribed or required for medical reasons: No Advance Directives: Yes Advance Directives Information Provided: Yes Advance Directives on File: No Meds Allergies Allergy/AdvReac Type Severity Reaction Status Date / Time penicillin V Allergy Unknown rash Verified 04/23/20 09:34 Active Medications: Current Medications Generic Name Dose Route Start Last Admin Trade Name Freq PRN Reason Stop Dose Admin Pharmacy Consult 1 each 07/19/20 07:58 Consult Rx Perform Med Rec MISCELLANE ONCE PRN Consult order Pharmacy Consult 1 each 07/19/20 10:01 Consult Rx Perform Med Rec MISCELLANE ONCE PRN Consult order Home Medications Medication Instructions Recorded Confirmed Last Taken Type atorvastatin 20 mg PO BEDTIME 12/28/19 07/19/20 07/18/20 History cholecalciferol (vitamin D3) 50 mcg PO DAILY 12/28/19 07/19/20 07/18/20 History levothyroxine 75 mcg PO DAILY 12/28/19 07/19/20 07/19/20 History loratadine 10 mg PO DAILY PRN 12/28/19 07/19/20 07/19/20 History losartan 50 mg PO DAILY 12/28/19 07/19/20 07/19/20 History metoprolol succinate 50 mg 50 mg PO DAILY 03/06/20 07/19/20 07/19/20 History tablet,extended release 24 hr aspirin 81 mg PO DAILY 07/19/20 07/19/20 07/19/20 History fluticasone propion-salmeterol 1 puff PO Q12H 07/19/20 07/19/20 07/19/20 History [Wixela Inhub] ibuprofen 400 mg PO Q6H PRN 07/19/20 07/19/20 07/19/20 History Physical Exam Vital Signs and Narrative: Vital Signs: Last Vital Signs Temp 97.9 F 07/19/20 14:19 Pulse 85 07/19/20 16:43 Resp 16 07/19/20 16:43 BP 97/66 07/19/20 16:43 Pulse Ox 98 07/19/20 16:43 Body Mass Index 23.7 Const: Other: Constitutional : Alert, oriented, not in distress Neck : Normal inspection, Supple Cardiovascular : RRR, S1 S2, no lower extremity edema Respiratory : Decreased bilateral air entry, no crackles, bilateral scattered wheezes or rhonchi Gastrointestinal: soft, lax, Normal bowel sounds, Non tender Skin : Warm/Dry, No rash Neurological : Alert & oriented x3, No focal deficit Results Labs CBC and Chem 7: 07/19/20 09:11 07/19/20 09:11 Labs: Laboratory Results - last 24 hr 07/19/20 07/19/20 07/19/20 09:11 09:11 09:11 MCV 92.2 MCH 30.0 MCHC 32.6 RDW 13.9 Plt Count 242 MPV 9.2 L Immature Gran % (Auto) 0.3 Neut % (Auto) 73.8 H Lymph % (Auto) 13.6 L [place] % (Auto) 6.7 Eos % (Auto) 4.8 H Baso % (Auto) 0.8 Lymph # (Auto) 1.3 [place] # (Auto) 0.6 Eos # (Auto) 0.4 Baso # (Auto) 0.1 Abs Immat Gran (auto) 0.03 Absolute Neuts (auto) 6.8 Absolute Nucleated RBC 0.000 Nucleated RBC % (auto) 0.0 Hold Blue Top SEE NOTE Anion Gap 16 Estim Creat Clear Calc 41.3 Estimated GFR 59 Random Glucose 124 H Lactic Acid Lactic Acid Fup @ 2Hr Calcium 9.2 Magnesium 2.2 Total Bilirubin 0.6 Direct Bilirubin 0.3 AST 30 ALT 20 Alkaline Phosphatase 93 Troponin I High Sens B-Natriuretic Peptide Total Protein 7.3 Albumin 4.7 Lipase 57 COVID-19 (AIDAN) COVID-[employer] 07/19/20 07/19/20 07/19/20 09:11 09:11 10:26 MCV MCH MCHC RDW Plt Count MPV Immature Gran % (Auto) Neut % (Auto) Lymph % (Auto) [place] % (Auto) Eos % (Auto) Baso % (Auto) Lymph # (Auto) [place] # (Auto) Eos # (Auto) Baso # (Auto) Abs Immat Gran (auto) Absolute Neuts (auto) Absolute Nucleated RBC Nucleated RBC % (auto) Hold Blue Top Anion Gap Estim Creat Clear Calc Estimated GFR Random Glucose Lactic Acid 3.7 H* Lactic Acid Fup @ 2Hr Calcium Magnesium Total Bilirubin Direct Bilirubin AST ALT Alkaline Phosphatase Troponin I High Sens 306.9 H B-Natriuretic Peptide 20 Total Protein Albumin Lipase COVID-19 (AIDAN) Negative COVID-[employer] See Note 07/19/20 14:18 MCV MCH MCHC RDW Plt Count MPV Immature Gran % (Auto) Neut % (Auto) Lymph % (Auto) [place] % (Auto) Eos % (Auto) Baso % (Auto) Lymph # (Auto) [place] # (Auto) Eos # (Auto) Baso # (Auto) Abs Immat Gran (auto) Absolute Neuts (auto) Absolute Nucleated RBC Nucleated RBC % (auto) Hold Blue Top Anion Gap Estim Creat Clear Calc Estimated GFR Random Glucose Lactic Acid Lactic Acid Fup @ 2Hr 1.8 Calcium Magnesium Total Bilirubin Direct Bilirubin AST ALT Alkaline Phosphatase Troponin I High Sens B-Natriuretic Peptide Total Protein Albumin Lipase COVID-19 (AIDAN) COVID-[employer] Imaging Radiologist's Impressions: Impressions Chest X-Ray 07/19/20 07:59 IMPRESSION: No acute intrathoracic disease. Assessment and Plan (1) Elevated troponin: Status: Acute (2) Acidosis, lactic: Status: Acute (3) Acute respiratory failure with hypoxia: Status: Acute (4) Acute exacerbation of COPD with asthma: Status: Inactive A 74 years old lady with PMH of asthma, COPD who presented to the hospital with worsening shortness of breath and wheezing for the last 4 days or so. Acute hypoxic respiratory failure Secondary to asthma in COPD exacerbation Continue steroids Duo nebs ATC Albuterol p.r.n. Oxygen supplement, to wean down as tolerated To add singular Lactic acidosis Not secondary to sepsis Likely result of bronchodilator usage Elevated troponin EKG within normal Seems to be demand mediated to check 2nd troponin keep on telemetry consider cardiology evaluation DVT PPX Lovenox
[2020-07-19 17:55] LABS: Troponin-I High Sensitivity 501.6 ng/L (<3.5-17.0)
--- NOTE | 2020-07-19 19:52 | PC.NURSE ---
Per [place] (hot car charger), RN to RN report given to [facility] by BRENDA Schmitt. Preparing for transfer to unit.
[2020-07-19] MEDS: Albuterol/Iprat 2.5/0.5MG 3 ML AMPUL.NEB INHALE (20:13)
[2020-07-19] MEDS: Montelukast Sodium 10 MG TABLET PO (20:53)
[2020-07-19] MEDS: Benzonatate 100 MG CAPSULE PO (20:53)
[2020-07-19] MEDS: Atorvastatin Calcium 20 MG TABLET PO (20:53)
[2020-07-19] MEDS: Enoxaparin Sodium 40 MG/0.4 ML SYRINGE SUBCUT (20:53)
[2020-07-20] VITALS (8 sets, daily range): BP systolic 96–106; BP diastolic 58–62; PULSE 75–95; RESP 16–20; TEMP 36.9–37.1; O2SAT 95–99
--- NOTE | 2020-07-20 | ECG_ITS ---
Test Reason : NSTEMI Blood Pressure : / mmHG Vent. Rate : 066 BPM Atrial Rate : 066 BPM P-R Int : 142 ms QRS Dur : 084 ms QT Int : 492 ms P-R-T Axes : 058 075 240 degrees QTc Int : 515 ms Normal sinus rhythm ST & Marked T wave abnormality, consider anterolateral ischemia Prolonged QT Abnormal ECG When compared with ECG of 19-JUL-2020 08:52, Vent. rate has decreased BY 32 BPM T wave inversion now evident in Inferior leads T wave inversion now evident in Anterolateral leads Referred By: Kinjal Vaughn Electronically Signed By:Farooq Woodruff
[2020-07-20] MEDS: 0.9 % Sodium Chloride Flush 3 ML SYRINGE IVFLUSH ×3 (00:38→14:57)
[2020-07-20] MEDS: Albuterol Sulfate (0.042%) 1.25 MG/3 ML VIAL.NEB INHALE (02:06)
[2020-07-20] MEDS: Levothyroxine Sodium 75 MCG TABLET PO (05:42)
[2020-07-20] MEDS: HYDROcodone/Homat 5/1.5/5 ML 5 ML SYRUP PO ×2 (05:42→12:23)
[2020-07-20 07:04] LABS: Basophils Percent Auto 0.1 % (0-2); Eosinophils Percent Auto 0.1 % (0-4); Hematocrit 37.8 % (37-47); Hemoglobin 12.4 g/dl (12.0-16.0); Imm Gran Abs Auto 0.03 X10*3/uL (0.00-0.03); Imm Gran Pct Auto 0.4 % (0.0-0.4); Lymphocytes Absolute Auto 0.7 X10*3/uL (1.2-4.9); Lymphocytes Percent Auto 8.8 % (20-40); MANUAL DIFF FLAG SCAN; Mean Corpuscular HGB Conc 32.8 g/dl (31.0-35.0); Mean Corpuscular Hemoglobin 30.2 pg (27.0-33.0); Mean Corpuscular Volume 92.2 fL (80-98); Mean Platelet Volume 9.8 fL (9.4-12.3); Monocytes Absolute Auto 0.5 X10*3/uL (0.1-1.2); Monocytes Percent Auto 6.6 % (2-11); Neutrophils Absolute Auto 6.3 X10*3/uL (2.0-8.3); Platelet Count 231 X10*3/uL (160-400); SCAN SMEAR FLAG 1; White Blood Count 7.5 X10*3/uL (4.8-10.8)
[2020-07-20 07:08] LABS: Anion Gap 14 (12-20); Blood Urea Nitrogen 15 mg/dL (9-16); Calcium 8.9 mg/dL (8.4-10.2); Carbon Dioxide 19 mmol/L (22-29); Chloride 112 mmol/L (96-108); Creatinine Clr Calc Pharmacy 51.3; Estimated Glomerular Filt Rate > 60; Glucose Random 116 mg/dL (60-115); Potassium 4.2 mmol/L (3.3-5.1); Sodium 141 mmol/L (135-145)
[2020-07-20] MEDS: Albuterol/Iprat 2.5/0.5MG 3 ML AMPUL.NEB INHALE ×2 (07:25→12:14)
[2020-07-20 07:32] LABS: SLIDE REVIEW VERIFIED
--- NOTE | 2020-07-20 08:00 | CA_ITS ---
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 - The visually estimated ejection fraction is between 40-45%. - The entire apex, the mid anterior, mid inferior, mid anterolateral, mid anteroseptal, and mid inferolateral segments are akinetic. 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 Findings Procedure Information Contrast agent, definity, is being given per protocol without apparent complications. Left Ventricle Normal left ventricular cavity size. There is normal left ventricular wall thickness. The left ventricular systolic function is mildly decreased. The visually estimated ejection fraction is between 40-45%. There is evidence of regional wall motion abnormalities. Diastolic function is indeterminate on the basis of available data. E/E prime ratio is between 8 and 15 consistent with indeterminate filling pressures. Wall Motion Rest Echo Findings The entire apex, the mid anterior, mid inferior, mid anterolateral, mid anteroseptal, and mid inferolateral segments are akinetic. Right Ventricle Normal right ventricular cavity size and systolic function. Atria The left atrium is normal in size. Aortic Valve The aortic valve structure and function is likely normal. There is no aortic valve stenosis. There is no aortic valve regurgitation. Mitral Valve The mitral valve appears normal. There is mild mitral valve regurgitation. There is no mitral valve stenosis. Pulmonic Valve The pulmonic valve was not well visualized. Tricuspid Valve Normal tricuspid valve structure. There is trace tricuspid valve regurgitation. Tricuspid regurgitation envelope is inadequate for calculation of right ventricular systolic pressure. Moderately elevated right atrial pressure. Great Vessels All visible segments of the aorta are normal in size. The visualized portions of the pulmonary artery and branches are normal. Venous The inferior vena cava is dilated and collapses greater than 50% with inspiration. Pericardium/Pleural There is no evidence of pericardial effusion. Prior Study Comparison Changes noted compared to prior study dated: 05/07/2012. EF 40-45%, RWMA Measurements 2D Linear Measurements IVSd: 0.77 0.6-0.9/0.6-1.0 cm LVIDd: 3.52 3.9-5.3/4.2-5.9 cm LVIDd Index: 2.07 2.4-3.2/2.2-3.1 cm/m2 LVIDs: 2.45 2.0-3.6 cm LVPWd: 0.79 0.7-1.1 cm Ao Root: 2.80 2.1-3.5 cm LA Diam: 2.40 2.7-3.8/3.0-4.0 cm LAIDs Index: 1.41 1.5-2.3 cm/m2 LV Mass: 90.98 67-162/88-224 g LV Mass Index: 53.52 43-95/49-115 g/m2 LVOT Diam: 2.00 3.0+(-)1.3 cm 2D Systolic Function EF 4C: 58.80 >55% EF 2C: 53.60 >55% Mitral Valve MV Pk E: 0.95 MV PK A: 0.88 MV Decel Time: 190.00 E/A: 1.10 E'Lateral: 8.61 E'Medial: 8.41 E/E' Med: 11.30 E/E' Lat: 11.00 PHT: 56.00 MVA PHT: 3.93 Decel Foster: 5.00 Aortic Valve AoV Pk Luis: 1.18 AoV Mn Luis: 0.88 AoV VTI: 0.27 AoV Pk Grad: 6.00 Aov Mn Grad: 3.00 DAVIE Cont.VTI: 2.07 LVOT LVOT Pk Luis: 0.80 LVOT Mn Luis: 0.55 LVOT VTI: 0.18 LVOT Pk Grad: 3.00 LVOT Mn Grad: 1.00 LVOT Diam: 2.00 LVOT Area: 3.14 Diastolic Function MV Pk E: 0.95 MV Pk A: 0.88 E/A: 1.10 E'Medial: 8.41 E/E' Med: 11.30 E' Laterial: 8.61 E/E' Lat: 11.00 Great Vessels Aorta Ao Root-2D: 2.80 2.0-3.7 cm Ao Asc: 3.10 2.1-3.4 cm Updated in Other Vendor System with Status of Final Farooq Woodruff MD electronically signed on 07/20/2020 10:46:57 AM with status of Final
[2020-07-20] MEDS: predniSONE 20 MG TABLET 40 MG PO (08:19)
[2020-07-20] MEDS: Losartan Potassium 50 MG TABLET PO (08:19)
[2020-07-20] MEDS: Aspirin Enteric Coated 81 MG TABLET.DR PO (08:19)
[2020-07-20] MEDS: Metoprolol Succinate ER 50 MG TAB.ER.24H PO (08:19)
[2020-07-20] MEDS: Benzonatate 100 MG CAPSULE PO ×2 (08:19→14:56)
[2020-07-20] MEDS: Cholecalciferol (Vitamin D3) 25 MCG TABLET 50 MCG PO (08:20)
[2020-07-20 10:12] LABS: Prothrombin Time 11.7 SEC (10.8-13.0)
--- NOTE | 2020-07-20 10:12 | MHC.CM.PN ---
pt to be transferred to [facility] for cardiac cath
[2020-07-20 10:15] LABS: PTT Heparin Drip 30.7 SEC (53-77.9)
[2020-07-20 10:47] LABS: B Type Natriuretic Peptide 435 pg/mL (<100)
[2020-07-20 10:57] LABS: Troponin-I High Sensitivity 305.2 ng/L (<3.5-17.0)
[2020-07-20] MEDS: Heparin Sodium,Porcine/1/2NS 25,000 UNIT/250 ML IV.SOLN 8.24 UNIT IVCONT (10:58)
--- NOTE | 2020-07-20 12:38 | P.CONCA_ITS ---
History of Present Illness History of Present Illness Date of Service: 07/20/20 Requesting physician: Nura Esposito Consult reason: other (Troponin elevation, NSTEMI) Chief complaint: Hypoxic Resp Failure Asthma Exacerbation Elev Trop Narrative: Sheri is a 74 yo female with PMH of HTN, HLD, asthma, 30 pack/year history smoking. She has no known hx of CAD, no prior VT. She presented to [facility] yesterday with report of increased shortness of breath over the last 4 days. She was noted to be hypoxic with saturations 87%. She was treated with steroids an updraft treatments with improvement in her symptom. Her chest x-ray showed no active disease. Her EKG shows sinus rhythm, very slight ST elevation V4 through V6 which was nonspecific, rate 98. Her initial troponin level was in the 70s and sarabjit to 306. She was felt to have secondary NSTEMI related to demand ischemia. She was admitted to the intermediate care floor. Cardiology was consulted for further evaluation. Today she reports that she continues to have some shortness of breath and an intermittent cough which she feels is typical for her asthma. She has not had any chest discomfort at rest or with activity. She tells me she is so focused chest pain pains. She has no palpitations, dizziness, presyncope, syncope, PND, orthopnea or edema. She tolerates ADLs but does not engage in any routine exercise due to her breathing. She has been taking all her medications as directed at home. She is unclear as to why she has had this asthma exacerbation but does add it is not unusual for her. Review of Systems 2 Review of Systems: As above Yes all other systems are reviewed and are negative [facility] Past Medical History Medical History (Updated 07/20/20 @ 12:59 by BIPIN Morales) Acute and chronic respiratory failure with hypoxia Acute exacerbation of COPD with asthma Allergic rhinitis Asthma COPD (chronic obstructive pulmonary disease) History of smoking at least 1 pack per day for at least 30 years Hypertension Hypothyroidism Family History Family History (Updated 07/20/20 @ 12:46 by GIDEON MoralesC) Mother Heart problem Social History Social History Household Members: None Housing: Apartment Smoking Status: Former smoker Use of substances other than those prescribed or required for medical reasons: No Currently Displaying Signs/Symptoms of Drug Intoxication Withdrawal: No Have you been hit, kicked, punched, or otherwise hurt by someone within the past year? If so, by whom?: No Do you feel safe in your current relationship?: No Are you made to feel afraid or neglected: No Spiritual Healthcare Practices: [facility] Cultural Healthcare Practices: will accept blood transfusions. anesthesia - problem with sodium pen (unsure reaction) Advance Directives: Yes Advance Directives Information Provided: Yes Advance Directives on File: No Advance Directives Date on File: 07/19/20 Do you have thoughts of harming others: None Do you have a plan to hurt others: No Plan Recently lost weight without trying: Unsure Meds Allergies Allergy/AdvReac Type Severity Reaction Status Date / Time penicillin V Allergy Unknown rash Verified 04/23/20 09:34 Active Medications: Current Medications Generic Name Dose Route Start Last Admin Trade Name Freq PRN Reason Stop Dose Admin Acetaminophen 650 mg 07/19/20 18:40 Acetaminophen 325 Mg Tablet PO Q6H PRN Pain, Mild (Pain Scale 1-3) Albuterol Sulfate 1.25 mg 07/19/20 18:40 07/20/20 02:06 Albuterol Sulfate (0.042%) 1.25 Mg/3 Ml Vial.Neb INHALE 1.25 mg RQ4H PRN Administration Wheezing Albuterol/Ipratropium 3 ml 07/19/20 20:00 07/20/20 12:14 Albuterol/Iprat 2.5/0.5mg 3 Ml Ampul.Neb INHALE 3 ml RQ4H WHILE AWAKE RAMANDEEP Administration Aspirin 81 mg 07/20/20 09:00 07/20/20 08:19 Aspirin Enteric Coated 81 Mg Tablet. PO 81 mg DAILY RAMANDEEP Administration Atorvastatin Calcium 20 mg 07/19/20 21:00 07/19/20 20:53 Atorvastatin Calcium 20 Mg Tablet PO 20 mg BEDTIME RAMANDEEP Administration Benzonatate 100 mg 07/19/20 21:00 07/20/20 08:19 Benzonatate 100 Mg Capsule PO 100 mg TID RAMANDEEP Administration Heparin Sodium (Porcine) 2,700 unit 07/20/20 09:15 Heparin Sodium,Porcine 5,000 Unit/Ml Vial 40 unit/kg (2700 unit) IVPUSH BOLUS PRN 40 unit/kg - Heparin Protocol Heparin Sodium (Porcine) 5,500 unit 07/20/20 09:15 Heparin Sodium,Porcine 5,000 Unit/Ml Vial 80 unit/kg (5500 unit) IVPUSH BOLUS PRN 80 unit/kg - Heparin Protocol Hydrocodone Bit/Homatropine Methylb 5 ml 07/20/20 02:37 07/20/20 12:23 Hydrocodone/Homat 5/1.5/5 Ml 5 Ml Syrup PO 5 ml Q6H PRN Administration Cough Heparin Sodium/Sodium Chloride 25,000 unit in 250 mls @ 0 mls/hr 07/20/20 11:00 07/20/20 10:58 IVCONT 12 units/kg/hr .Q0M RAMANDEEP 8.24 mls/hr Administration Protocol Per Protocol Ibuprofen 400 mg 07/19/20 18:40 Ibuprofen 400 Mg Tablet PO Q6H PRN Pain Levothyroxine Sodium 75 mcg 07/20/20 06:30 07/20/20 05:42 Levothyroxine Sodium 75 Mcg Tablet PO 75 mcg DAILY@0630 RAMANDEEP Administration Loratadine 10 mg 07/19/20 18:40 Loratadine 10 Mg Tablet PO DAILY PRN Allergy Symptoms Losartan Potassium 50 mg 07/20/20 09:00 07/20/20 08:19 Losartan Potassium 50 Mg Tablet PO 50 mg DAILY RAMANDEEP Administration Protocol Metoprolol Succinate 50 mg 07/20/20 09:00 07/20/20 08:19 Metoprolol Succinate Er 50 Mg Tab.Er.24h PO 50 mg DAILY RAMANDEEP Administration Protocol Montelukast Sodium 10 mg 07/19/20 21:00 07/19/20 20:53 Montelukast Sodium 10 Mg Tablet PO 10 mg BEDTIME RAMANDEEP Administration Ondansetron HCl 4 mg 07/19/20 18:40 Ondansetron Hcl 4 Mg/2 Ml Vial IVPUSH Q8H PRN Nausea and Vomiting Prednisone 40 mg 07/20/20 09:00 07/20/20 08:19 Prednisone 20 Mg Tablet PO 40 mg DAILY RAMANDEEP Administration Sodium Chloride 3 ml 07/20/20 00:00 07/20/20 08:20 0.9 % Sodium Chloride Flush 3 Ml Syringe IVFLUSH 3 ml QSHIFT RAMANDEEP Administration Vitamin D 50 mcg 07/20/20 09:00 07/20/20 08:20 Cholecalciferol (Vitamin D3) 25 Mcg Tablet PO 50 mcg DAILY RAMANDEEP Administration Home Medications Medication Instructions Recorded Confirmed Last Taken Type atorvastatin 20 mg PO BEDTIME 12/28/19 07/19/20 07/18/20 History cholecalciferol (vitamin D3) 50 mcg PO DAILY 12/28/19 07/19/20 07/18/20 History levothyroxine 75 mcg PO DAILY 12/28/19 07/19/20 07/19/20 History loratadine 10 mg PO DAILY PRN 12/28/19 07/19/20 07/19/20 History losartan 50 mg PO DAILY 12/28/19 07/19/20 07/19/20 History metoprolol succinate 50 mg 50 mg PO DAILY 03/06/20 07/19/20 07/19/20 History tablet,extended release 24 hr aspirin 81 mg PO DAILY 07/19/20 07/19/20 07/19/20 History fluticasone propion-salmeterol 1 puff PO Q12H 07/19/20 07/19/20 07/19/20 History [Wixela Inhub] ibuprofen 400 mg PO Q6H PRN 07/19/20 07/19/20 07/19/20 History Physical Exam Vital Signs: Vital Signs: Last Vital Signs Temp 98.8 F 07/20/20 12:00 Pulse 77 07/20/20 12:17 Resp 20 07/20/20 12:00 BP 102/62 07/20/20 12:00 Pulse Ox 95 07/20/20 12:00 Body Mass Index 27.7 Const: General: cooperative, no acute distress, alert and awake Orientation/consciousness: patient oriented x3 Neck: Neck: Yes normal visual inspection and Yes no JVD Carotids: carotid upstroke abnormal Resp: Other: Intermittent nonproductive cough during exam. Lungs with diminished air movement, fine expiratory wheezes noted, no rales appreciated. Effort & Inspection: able to speak in complete sentences and not labored Auscultation: no crackles, no rales and no rhonchi Cardio: Palpation: normal PMI Rate: regular rate Rhythm: regular rhythm Heart sounds: S1 normal heart sound present and S2 normal heart sound present Peripheral pulses: Peripheral pulses 2+ throughout GI: Inspection: Yes normal to inspection Neuro: General: patient oriented x3 Extrem: General: Yes normal to inspection and No edema Results Labs and Meds Result diagrams: 07/20/20 05:38 07/20/20 05:38 Lab results: Laboratory Results - last 24 hr 07/19/20 07/19/20 07/20/20 14:18 17:09 05:38 WBC 7.5 RBC 4.10 L Hgb 12.4 Hct 37.8 MCV 92.2 MCH 30.2 MCHC 32.8 RDW 14.0 Plt Count 231 MPV 9.8 Immature Gran % (Auto) 0.4 Neut % (Auto) 84.0 H Lymph % (Auto) 8.8 L [place] % (Auto) 6.6 Eos % (Auto) 0.1 Baso % (Auto) 0.1 Lymph # (Auto) 0.7 L [place] # (Auto) 0.5 Eos # (Auto) 0.0 Baso # (Auto) 0.0 Abs Immat Gran (auto) 0.03 Absolute Neuts (auto) 6.3 Absolute Nucleated RBC 0.000 Nucleated RBC % (auto) 0.0 Smear Tech's Comments VERIFIED PT INR PTT (Heparin Protocol) Sodium Potassium Chloride Carbon Dioxide Anion Gap BUN Creatinine Estim Creat Clear Calc Estimated GFR Random Glucose Lactic Acid Fup @ 2Hr 1.8 Calcium Troponin I High Sens 501.6 H D B-Natriuretic Peptide 07/20/20 07/20/20 07/20/20 05:38 09:51 09:51 WBC RBC Hgb Hct MCV MCH MCHC RDW Plt Count MPV Immature Gran % (Auto) Neut % (Auto) Lymph % (Auto) [place] % (Auto) Eos % (Auto) Baso % (Auto) Lymph # (Auto) [place] # (Auto) Eos # (Auto) Baso # (Auto) Abs Immat Gran (auto) Absolute Neuts (auto) Absolute Nucleated RBC Nucleated RBC % (auto) Smear Tech's Comments PT 11.7 INR 1.0 PTT (Heparin Protocol) 30.7 L Sodium 141 Potassium 4.2 Chloride 112 H Carbon Dioxide 19 L Anion Gap 14 BUN 15 Creatinine 0.86 Estim Creat Clear Calc 51.3 Estimated GFR > 60 Random Glucose 116 H Lactic Acid Fup @ 2Hr Calcium 8.9 Troponin I High Sens 305.2 H B-Natriuretic Peptide 435 H Assessment and Plan (1) NSTEMI (non-ST elevated myocardial infarction): Status: Acute Admit with asthma exacerbation. Troponin rise consistent with NSTEMI. Initial EKG with nonspecific ST abnormality. No reports of chest discomfort. She was felt initially to have secondary NSTEMI related to demand ischemia in th e setting of a hypoxia. For cardiac risks of hypertension, hyperlipidemia, smoking. This a.m. she is noted to have T-wave inversions on her youth nutritional monitor. Stat EKG shows T-wave inversions inferiorly, V3 through V6 with biphasic T-wave in V2. Continues to deny chest discomfort however has some shortness of breath which she still relate this to her asthma. She does not appear to be having acute heart failure on exam. Started on heparin drip for anticoagulation. Continue on aspirin, atorvastatin, metoprolol, losartan. Stat echocardiogram was done showing EF 40-45%, multi area wall motion abnormalities suggesting Takotsubo cardiomyopathy versus multi-vessel coronary artery disease. Stat troponin was 305 which is down from her last done yesterday. BNP elevated at 435, BNP yesterday was 20. Case reviewed with Dr. Woodruff. Will transfer to [facility] and plan for cardiac catheterization later today. Patient made NPO. Report called to [facility] hospitalist and they will call when a bed is available. Discussed all the above with patient and I did speak with her friend at her request. Patient is agreeable to transfer and cardiac catheterization. She has a normal creatinine and no IVP dye allergy. No history of bleeding reported. Continue current meds. She has increasing shortness of breath or rales may need IV diuretic dose. Ongoing telemetry monitoring while awaiting transfer. Thank you for this consult. (2) Elevated troponin: Status: Acute (3) Acute respiratory failure with hypoxia: Status: Acute (4) Asthma: Status: Acute Chronic history of asthma, follows with pulmonology
--- NOTE | 2020-07-20 14:04 | PM.DS ---
DS: Providers Provider Date of Service: 07/20/20 Date of admission: 07/19/20 17:30 Primary care physician: Fili Leiva MD Consults: 07/19/20 18:40 Consult to Cardiology Routine Consulting Provider: Farooq Woodruff Reason for consultation: Elevated Trop in setting of asthma exacerbation w hypoxia. DS: Diagnosis Discharge Diagnosis (1) NSTEMI (non-ST elevated myocardial infarction): Status: Acute (2) Elevated troponin: Status: Acute (3) Acute respiratory failure with hypoxia: Status: Acute (4) Asthma: Status: Acute DS: Medications Discharge Medications Home Medications: Home Medications Medication Instructions Recorded Confirmed atorvastatin 20 mg PO BEDTIME 12/28/19 07/19/20 cholecalciferol (vitamin D3) 50 mcg PO DAILY 12/28/19 07/19/20 levothyroxine 75 mcg PO DAILY 12/28/19 07/19/20 loratadine 10 mg PO DAILY PRN 12/28/19 07/19/20 losartan 50 mg PO DAILY 12/28/19 07/19/20 metoprolol succinate 50 mg 50 mg PO DAILY 03/06/20 07/19/20 tablet,extended release 24 hr aspirin 81 mg PO DAILY 07/19/20 07/19/20 fluticasone propion-salmeterol 1 puff PO Q12H 07/19/20 07/19/20 [Wixela Inhub] ibuprofen 400 mg PO Q6H PRN 07/19/20 07/19/20 Previous Rx's Medication Instructions Recorded albuterol sulfate 90 mcg/actuation 2 puff INHALATION Q4H PRN 30 Days 07/11/20 aerosol inhaler #1 ea albuterol sulfate 2.5 mg INHALATION Q4-6H PRN 30 07/12/20 Days #90 ml heparin(porcine) in 0.45% NaCl 25,000 unit CONTINUOUS IV INFUSION 07/20/20 .Q0M #1 ml montelukast 10 mg PO BEDTIME #1 tab 07/20/20 prednisone 40 mg PO DAILY #1 tab 07/20/20 DS: Summary Hospital Course Hospital Course: Admission note HPI A 74 years old lady with PMH of asthma, COPD who presented to the hospital with worsening shortness of breath and wheezing for the last 4 days or so. The patient reports five days ago she started to feel increased shortness of breath. She used her inhalers with no resolution of the symptoms then she tried nebulizer multiple occasions and with frequency of almost every 4 hours with worsening dyspnea on exertion as she was unable to walk irregular distant as she did before. She denies any chest pain, palpitation, fever, chills. EMS was called today for worsening dyspnea and found her oxygen saturation to be around 87% on room air. The emergency she received steroids and nebulizers with good response. Admitted further evaluation and treatment Hospital course Patient was admitted for treatment of acute hypoxic respiratory failure secondary to asthma exacerbation as she responded well to steroids and nebulizer in the emergency. Noticed to have elevated cardiac enzymes at time of presentation with no reported chest pain. EKG was within normal at that point. High sensitivity troponin trended from 300-500 with repeat. A repeated EKG was notable for ST and T-wave changes suggestive of acute coronary syndrome still without any chest pain reported by the patient. She was started on heparin drip with arrangement for transfer to [facility] for cardiac angiogram per Cardiology evaluation. Decreased ejection fraction to 40-45% with entire apex, the mid anterior, mid inferior, mid anterolateral, mid anteroseptal, and mid inferolateral segments are akinetic. Concerning for possible Takotsubo cardiomyopathy vs multivessel disease. Time Spent with Patient Time attestation: Total time spent providing and/or coordinating discharge services: Discharge coordination time: Greater than 30 minutes Physical Exam Vital Signs: Vital Signs: Last Vital Signs Temp 98.8 F 07/20/20 12:00 Pulse 77 07/20/20 12:17 Resp 20 07/20/20 12:00 BP 102/62 07/20/20 12:00 Pulse Ox 95 07/20/20 12:00 Body Mass Index 27.7 Const: Other: Constitutional : Alert, oriented, not in distress Neck : Normal inspection, Supple Cardiovascular : RRR, S1 S2, no lower extremity edema Respiratory : Decreased bilateral air entry, no crackles, bilateral scattered wheezes Gastrointestinal: soft, lax, Normal bowel sounds, Non tender Skin : Warm/Dry, No rash Neurological : Alert & oriented x3, No focal deficit DS: Data Data Completed and Pending Labs on day of discharge: Laboratory Results - last 24 hr 07/19/20 07/19/20 07/20/20 14:18 17:09 05:38 WBC 7.5 RBC 4.10 L Hgb 12.4 Hct 37.8 MCV 92.2 MCH 30.2 MCHC 32.8 RDW 14.0 Plt Count 231 MPV 9.8 Immature Gran % (Auto) 0.4 Neut % (Auto) 84.0 H Lymph % (Auto) 8.8 L [place] % (Auto) 6.6 Eos % (Auto) 0.1 Baso % (Auto) 0.1 Lymph # (Auto) 0.7 L [place] # (Auto) 0.5 Eos # (Auto) 0.0 Baso # (Auto) 0.0 Abs Immat Gran (auto) 0.03 Absolute Neuts (auto) 6.3 Absolute Nucleated RBC 0.000 Nucleated RBC % (auto) 0.0 Smear Tech's Comments VERIFIED PT INR PTT (Heparin Protocol) Sodium Potassium Chloride Carbon Dioxide Anion Gap BUN Creatinine Estim Creat Clear Calc Estimated GFR Random Glucose Lactic Acid Fup @ 2Hr 1.8 Calcium Troponin I High Sens 501.6 H D B-Natriuretic Peptide 07/20/20 07/20/20 07/20/20 05:38 09:51 09:51 WBC RBC Hgb Hct MCV MCH MCHC RDW Plt Count MPV Immature Gran % (Auto) Neut % (Auto) Lymph % (Auto) [place] % (Auto) Eos % (Auto) Baso % (Auto) Lymph # (Auto) [place] # (Auto) Eos # (Auto) Baso # (Auto) Abs Immat Gran (auto) Absolute Neuts (auto) Absolute Nucleated RBC Nucleated RBC % (auto) Smear Tech's Comments PT 11.7 INR 1.0 PTT (Heparin Protocol) 30.7 L Sodium 141 Potassium 4.2 Chloride 112 H Carbon Dioxide 19 L Anion Gap 14 BUN 15 Creatinine 0.86 Estim Creat Clear Calc 51.3 Estimated GFR > 60 Random Glucose 116 H Lactic Acid Fup @ 2Hr Calcium 8.9 Troponin I High Sens 305.2 H B-Natriuretic Peptide 435 H Preliminary micro results at discharge 07/19/20 09:13 Blood Culture - Preliminary Blood - Venous No growth after 24 hours. 07/19/20 09:11 Blood Culture - Preliminary Blood - Venous No growth after 24 hours. Discharge Plan Discharge Patient Disposition: Xfer Acute Care Hospital Discharge Diagnosis: NSTEMI Acute hypoxic respiratory failure Asthma exacerbation Referrals: [facility] [Outside] - 1 Week Fili Leiva MD [Primary Care Provider] - 1 Week Discharge Medications: New heparin(porcine) in 0.45% NaCl 25,000 unit/250 mL Parenteral Solution 25,000 unit continuous IV infusion .Q0M Qty: 1 RF: 0 prednisone 20 mg Tablet 40 mg PO DAILY Qty: 1 RF: 0 montelukast 10 mg Tablet 10 mg PO BEDTIME Qty: 1 RF: 0 Continued albuterol sulfate 90 mcg/actuation HFA aerosol inhaler 2 puff INHALATION Q4H PRN (Reason: Respiratory Distress) 30 Days Qty: 1 RF: 6 albuterol sulfate 2.5 mg /3 mL (0.083 %) solution for nebulization 2.5 mg inhalation Q4-6H PRN (Reason: shortness of breath or wheezing) 30 Days Qty: 90 RF: 3 atorvastatin 20 mg Tablet 20 mg PO BEDTIME RF: 0 cholecalciferol (vitamin D3) 50 mcg (2,000 unit) Tablet 50 mcg PO DAILY RF: 0 levothyroxine 75 mcg Tablet 75 mcg PO DAILY RF: 0 loratadine 10 mg Tablet 10 mg PO DAILY PRN (Reason: Allergy Symptoms) RF: 0 losartan 50 mg Tablet 50 mg PO DAILY RF: 0 fluticasone propion-salmeterol [Wixela Inhub] 250-50 mcg/dose blister with device 1 puff PO Q12H RF: 0 aspirin 81 mg Tablet,Delayed Release (Dr/Ec) 81 mg PO DAILY RF: 0 ibuprofen 400 mg Tablet 400 mg PO Q6H PRN (Reason: Pain) RF: 0 metoprolol succinate 50 mg tablet extended release 24 hr 50 mg PO DAILY RF: 0 Discharge Orders: Discharge Order (Routine); Ordered 07/20/20 Ordered By: Nura Esposito Activity on Discharge: As tolerated Stand Alone Forms: Patient Portal Discharge page Care Plan Goals: Read below Health Concerns: Read below Plan of Treatment: You were admitted to the hospital for evaluation of shortness of breath. Treated mainly for asthma exacerbation with fair response. Noticed to have elevated heart enzymes. The 1st EKG looked within normal. A repeated EKG overnight showed significant changes suggestive possible heart attack. Evaluated by Cardiology team who recommended transfer to [facility] for cardiac angiogram. Assessment: Transfer to [facility] for angiogram.
== END 2020-07-20 15:24 | disposition short-term general hospital (02) | DRG 190 ==
LOC: HO.ED 14:41 → HO.EDOVER 17:50 → HO.IMC 18:39
PROVIDERS: Nurse Practitioner Family; Admitting Provider Student in an Organized Health Care Education/Training Program; Emergency Provider Emergency Medicine; PCP Internal Medicine; Visit Provider Student in an Organized Health Care Education/Training Program
DX: J44.1 Chronic obstructive pulmonary disease with (acute) exacerbation (principal); J96.01 Acute respiratory failure with hypoxia; I21.4 Non-ST elevation (NSTEMI) myocardial infarction; J45.901 Unspecified asthma with (acute) exacerbation; E87.2 Acidosis; E03.9 Hypothyroidism, unspecified; Z20.822 Contact with and (suspected) exposure to COVID-19; Z87.891 Personal history of nicotine dependence; Z88.0 Allergy status to penicillin; Z79.1 Long term (current) use of non-steroidal anti-inflammatories (NSAID); Z79.51 Long term (current) use of inhaled steroids; Z79.52 Long term (current) use of systemic steroids; Z79.890 Hormone replacement therapy; Z79.899 Other long term (current) drug therapy
CPT/HCPCS: 36415; 71045; 80048; 80076; 83605; 83690; 83735; 83880; 84484; 85025; 85610; 85730; 87040; 87635; 93005; 93306; 94640; 94645; 94664; 96365; 96366; 96367; 96375; 99285; 99291; J0696; J1650; J2930; Q9957

== ENCOUNTER → 2020-07-27 11:08 | Outpatient (BNVA) | payer MEDICARE, SELFPAY | PROVIDERS: PCP Internal Medicine; Referring Provider Internal Medicine; Visit Provider Nurse Practitioner Family | DX: I51.81 Takotsubo syndrome (principal); J96.01 Acute respiratory failure with hypoxia; Z98.890 Other specified postprocedural states | CPT/HCPCS: 99212 ==

== ENCOUNTER → 2020-07-31 14:12 | Outpatient (BNVA) | payer MEDICARE, SELFPAY | PROVIDERS: PCP Internal Medicine; Visit Provider Internal Medicine | DX: J30.9 Allergic rhinitis, unspecified (principal); J44.9 Chronic obstructive pulmonary disease, unspecified; Z98.890 Other specified postprocedural states | CPT/HCPCS: 99212 ==

== ENCOUNTER → 2020-08-17 13:06 | Outpatient (REF) | payer MEDICARE, SELFPAY ==
--- NOTE | 2020-08-17 13:11 | CA_ITS ---
Transthoracic Echocardiogram Limited Patient (Last, First, Middle): Sheri Torres, Gender: Female Date of : 1945 Age: 74 Procedure Date: 08/17/2020 Procedure Type: Transthoracic Echocardiogram Limited Location: OP Height: 162.56 cm Weight: 61.24 kg BSA: 1.66 m2 Heart Rate: bpm BP: 118 / 60 mmHg Enterprise Solutions Architect: ROSANGELA Referring MD: Kinjal Vaughn NURSING TECHNICIAN-C Geoscience Professor: Home Ceja MD Symptoms: I51.81 - Takotsubo syndrome Study Quality: Fair ECG Rhythm: Sinus Conclusions: - Normal LV systolic function with grade 1 diastolic dysfunction Findings Left Ventricle Normal left ventricular size, thickness, and systolic function. The visually estimated ejection fraction is between 55-60%. There is no evidence of regional wall motion abnormalities. Spectral Doppler is indicative of an impaired relaxation filling pattern. E/E prime ratio is <8, consistent with normal filling pressures. Evidence suggests grade I (mild) diastolic dysfunction. Prior Study Comparison Changes noted compared to prior study dated: 07/20/2020. LV systolic function has normalized with normalized wall motion compared to prior study Measurements 2D Linear Measurements IVSd: 0.83 0.6-0.9/0.6-1.0 cm LVIDd: 3.59 3.9-5.3/4.2-5.9 cm LVIDd Index: 2.16 2.4-3.2/2.2-3.1 cm/m2 LVIDs: 2.00 2.0-3.6 cm LVPWd: 0.87 0.7-1.1 cm LV Mass: 105.75 67-162/88-224 g LV Mass Index: 63.71 43-95/49-115 g/m2 2D Systolic Function EF 4C: 65.20 >55% EF 2C: 61.10 >55% Mitral Valve MV Pk E: 0.61 MV PK A: 0.89 MV Decel Time: 115.00 E/A: 0.70 E'Lateral: 6.85 E'Medial: 7.62 E/E' Med: 8.00 E/E' Lat: 8.90 PHT: 34.00 MVA PHT: 6.47 Decel Ada: 5.31 Diastolic Function MV Pk E: 0.61 MV Pk A: 0.89 E/A: 0.70 E'Medial: 7.62 E/E' Med: 8.00 E' Laterial: 6.85 E/E' Lat: 8.90 Tricuspid Valve TR Pk Luis: 1.69 TR Pk Grad: 11.00 Updated in Other Vendor System with Status of Final Home Ceja MD electronically signed on 08/18/2020 12:58:02 PM with status of Final
== END ==
LOC: HO.CARD 13:06
PROVIDERS: Visit Provider Nurse Practitioner Family
DX: I51.81 Takotsubo syndrome (principal); Z98.890 Other specified postprocedural states
CPT/HCPCS: 93308

== ENCOUNTER → 2020-10-08 10:34 | Outpatient (BNVA) | payer MEDICARE, SELFPAY | PROVIDERS: PCP Internal Medicine; Visit Provider Internal Medicine | DX: J44.1 Chronic obstructive pulmonary disease with (acute) exacerbation (principal); I21.4 Non-ST elevation (NSTEMI) myocardial infarction; R00.0 Tachycardia, unspecified; J45.901 Unspecified asthma with (acute) exacerbation | CPT/HCPCS: 99212 ==

== ENCOUNTER 2020-10-08 11:24 | Inpatient (IN) | payer MEDICARE, SELFPAY ==
[2020-10-08] VITALS (11 sets, daily range): BP systolic 107–152; BP diastolic 62–99; PULSE 94–123; RESP 16–24; TEMP 36.7–36.9; O2SAT 94–98; BMI 21.4; BMI 23.4
--- NOTE | ~2020-10-08 | XR_ITS ---
EXAMINATION: XR CHEST CLINICAL INFORMATION: Cough. COMPARISON: Chest 07/19/2020 TECHNIQUE: Frontal view of the chest was obtained. FINDINGS: The lungs are well-expanded and clear of acute pneumonic process. The heart size and pulmonary vascularity is normal. No gross bony abnormality seen. XR/XR chest 1V IMPRESSION: Unremarkable chest exam.
--- NOTE | 2020-10-08 11:45 | ED.GENADULT ---
HPI - General Adult General Chief complaint: General Medical Stated complaint: Cardiac Time Seen by Provider: 10/08/20 11:38 Source: patient and old records reviewed Mode of arrival: ambulatory Limitations: no limitations History of Present Illness HPI narrative: 74 yo female with hx of COPD and takotsubo cardiomyopathy had normal cath 07/20 30% ostial lesion in LAD - dx Takostubo cardiomyopathy reports 1 day of productive cough subj fevers increased mucous producation seen in her pulmologist office today found to be tachycardic 130s with increased work of breathing, patient is not on home O2 and not on home steroids, denies CP other than c/o feeling it is tight. complaint: dyspnea Onset (ago): day(s) (1) Location: chest Severity: moderate Pain Consistency: intermittent Relieving factors: other (some improvement with bronchodilators and O2) Exacerbating factors: other (exertion and coughing) Associated symptoms: cough, fever/chills, loss of appetite and weakness Treatments prior to arrival: none Related Data Home Medications Medication Instructions Recorded Confirmed atorvastatin 20 mg PO BEDTIME 12/28/19 07/27/20 cholecalciferol (vitamin D3) 50 mcg PO DAILY 12/28/19 07/27/20 levothyroxine 75 mcg PO DAILY 12/28/19 07/27/20 loratadine 10 mg PO DAILY PRN 12/28/19 07/27/20 losartan 50 mg PO DAILY 12/28/19 07/27/20 metoprolol succinate 50 mg 50 mg PO DAILY 03/06/20 07/27/20 tablet,extended release 24 hr aspirin 81 mg PO DAILY 07/19/20 07/27/20 fluticasone propion-salmeterol 1 puff PO Q12H 07/19/20 07/27/20 [Wixela Inhub] ibuprofen 400 mg PO Q6H PRN 07/19/20 07/27/20 Previous Rx's Medication Instructions Recorded albuterol sulfate 90 mcg/actuation 2 puff INHALATION Q4H PRN 30 Days 07/11/20 aerosol inhaler #1 ea albuterol sulfate 2.5 mg INHALATION Q4-6H PRN 30 07/12/20 Days #90 ml Allergies Allergy/AdvReac Type Severity Reaction Status Date / Time penicillin V Allergy Intermediate rash Verified 10/08/20 11:26 Review of Systems Review of Systems: Constitutional : pos Fever, pos Chills ENT/Mouth : No sore throat, No Rhinorrhea, No Swallowing Difficulty Eyes: No Eye Pain, No Swelling, No Redness Cardiovascular : pos Chest Pain, positive SOB, No Orthopnea, no Edema Respiratory : pos Cough, pos Sputum, No Wheezing, positive dyspnea Gastrointestinal : No Nausea, No Vomiting, No Diarrhea, No abdominal Pain, No Hematochezia, No Melena Genitourinary : No Dysuria, No Urinary Frequency, No Hematuria Musculoskeletal : No joint pain, No Myalgias Skin : No Skin Lesions, No rash Neuro : No Weakness, No Numbness, No Dizziness, No Headache Psych : No Anxiety/Panic, No Depression Heme/Lymph: No Bruising, No Lymphadenopathy Endocrine : No Polyuria, No Polydipsia All other systems reviewed and are negative [facility] Past Medical History Attestation statement: The following information was validated with the patient. Medical History Acute and chronic respiratory failure with hypoxia Acute exacerbation of COPD with asthma Allergic rhinitis Asthma COPD (chronic obstructive pulmonary disease) COPD (chronic obstructive pulmonary disease) History of smoking at least 1 pack per day for at least 30 years Hypertension Hypothyroidism Surgical History S/P cardiac cath Family History Family History Mother Heart problem Social History Social History (Updated 10/08/20 @ 11:56 by Silva Duarte DO) Household Members: None Housing: Apartment Patient Tobacco Use Status: Former Tobacco user Use of substances other than those prescribed or required for medical reasons: No Advance Directives: Yes Advance Directives on File: Yes Advance Directives Date on File: 07/19/20 Physical Exam Vital Signs: Vital Signs: Last Vital Signs Temp 98.4 F 10/08/20 11:27 Pulse 113 H 10/08/20 11:27 Resp 24 H 10/08/20 11:27 BP 152/99 H 10/08/20 11:27 Pulse Ox 97 10/08/20 11:27 Oxygen Flow Rate 2 10/08/20 11:27 Body Mass Index 21.4 Appearance: Alert. Oriented X3. Mild acute distress. Eyes: Pupils equal, round and reactive to light. ENT: Pharynx normal. Neck: Normal inspection. Neck supple. CVS: Normal heart rate and rhythm - 98 on tele. Pulses normal. Respiratory: Mild respiratory distress - tachypnea and retractions, shorter phrases. Breath sounds coarse with diffuse end exp wheezes Abdomen: Soft and nontender. Skin: Skin warm and dry. Normal skin color. Normal skin turgor. Extremities: No lower extremity edema. No calf ttp Neuro: Oriented X 3. No motor deficit. No sensory deficit. Medical Decision Making MDM Narrative Medical decision making narrative: 74 yo female with hx of COPD and takotsubo cardiomyopathy had normal cath 07/20 30% ostial lesion in LAD - dx Takostubo cardiomyopathy reports 1 day of productive cough subj fevers increased mucous producation seen in her pulmologist office today found to be tachycardic 130s with increased work of breathing, patient is not on home O2 and not on home steroids, denies CP other than c/o feeling it is tight - at this time will need hour long neb, IV steroids, IV magnesium, labs, EKG, given fevers at home and increased sputum production will give IV ceftriaxone and doxy for COPD exacerbation - anticipate admission ECG Data Attestation: I personally reviewed and interpreted this ECG as follows: Interpretation: Rate: 99 Rhythm: NSR [place]: normal Normal P waves. Normal FILIBERTO. Normal QRS complex. ST T wave : normal no LAKIS[place] qTC: normal prior studies: no acute ischemia The study has been interpreted contemporaneously by me. . Critical Care Time Critical Care Time Critical Care Time: Yes Total Critical Care Time: 60 Attestation: review of records, hour long neb treatment, IV antibiotics, O2 supplementation I attest to this time spent taking care of the patient Discharge Plan Discharge Clinical Impression: COPD (chronic obstructive pulmonary disease) Qualifiers: COPD type: COPD with acute exacerbation Qualified Code(s): J44.1 - Chronic obstructive pulmonary disease with (acute) exacerbation Patient Disposition: Admitted As Inpatient
--- NOTE | 2020-10-08 11:48 | ECG_ITS ---
Test Reason : SHORTNESS OF BREATH Blood Pressure : / mmHG Vent. Rate : 099 BPM Atrial Rate : 099 BPM P-R Int : 148 ms QRS Dur : 078 ms QT Int : 364 ms P-R-T Axes : 073 079 047 degrees QTc Int : 467 ms Normal sinus rhythm Normal ECG When compared with ECG of 20-JUL-2020 08:55, Vent. rate has increased BY 33 BPM T wave inversion no longer evident in Inferior leads T wave inversion no longer evident in Anterolateral leads Referred By: Silva Duarte Electronically Signed By:Farooq Woodruff
[2020-10-08] MEDS: Magnesium Sulfate/H2O 2 GM/50 ML PIGGYBACK IV (12:05)
[2020-10-08] MEDS: Albuterol Sulfate (0.083%) 2.5 MG/3 ML VIAL.NEB 10 MG INHALE (12:12)
[2020-10-08 12:24] LABS: MANUAL DIFF FLAG NO
[2020-10-08 12:26] LABS: Basophils Absolute Auto 0.1 X10*3/uL (0.0-0.2); Basophils Percent Auto 1.2 % (0-2); Eosinophils Absolute Auto 0.9 X10*3/uL (0.0-0.4); Hemoglobin 14.8 g/dl (12.0-16.0); Imm Gran Abs Auto 0.02 X10*3/uL (0.00-0.03); Imm Gran Pct Auto 0.2 % (0.0-0.4); Lymphocytes Absolute Auto 1.1 X10*3/uL (1.2-4.9); Lymphocytes Percent Auto 13.5 % (20-40); Mean Corpuscular HGB Conc 32.9 g/dl (31.0-35.0); Mean Corpuscular Hemoglobin 30.8 pg (27.0-33.0); Mean Corpuscular Volume 93.6 fL (80-98); Mean Platelet Volume 9.3 fL (9.4-12.3); Monocytes Absolute Auto 0.5 X10*3/uL (0.1-1.2); Monocytes Percent Auto 6.7 % (2-11); Neutrophils Absolute Auto 5.5 X10*3/uL (2.0-8.3); Neutrophils Percent Auto 67.4 % (45-73); Platelet Count 242 X10*3/uL (160-400); Red Blood Count 4.81 X10*6/uL (4.20-5.50); Red Cell Distribution Width 13.3 % (11.0-16.0); White Blood Count 8.1 X10*3/uL (4.8-10.8)
[2020-10-08 12:27] LABS: Venous Blood Gas Refer to POC result
[2020-10-08 12:28] LABS: VBG Base Excess -4.1 mmol/L; VBG HCO3 23 mmol/L (22-26); VBG pCO2 50 mmHg; VBG pH 7.27 (7.32-7.43); VBG pO2 39 mmHg
[2020-10-08 12:31] LABS: Prothrombin Time 11.7 SEC (9.9-13.0)
--- NOTE | 2020-10-08 12:31 | PHA.MEDREC ---
Pharmacy Consult ? Medication Reconciliation Pharmacy has completed the medication reconciliation.
[2020-10-08] MEDS: cefTRIAXone sodium 1 GM in 0.9 % Sodium Chloride 50 ML IV (12:32)
[2020-10-08 12:34] LABS: Partial Thromboplastin Time 34.1 SEC (24.1-38.0)
[2020-10-08 12:45] LABS: COVID-19 Test Negative (Negative); IDNOW Serial# 9DD0AD1C
[2020-10-08 12:58] LABS: Lactic Acid 1.3 mmol/L (0.5-2.0)
[2020-10-08 13:01] LABS: Anion Gap 15 (12-20); Blood Urea Nitrogen 9 mg/dL (9-16); Calcium 9.5 mg/dL (8.4-10.2); Carbon Dioxide 23 mmol/L (22-29); Chloride 108 mmol/L (96-108); Creatinine Clr Calc Pharmacy 49.3; Estimated Glomerular Filt Rate > 60; Glucose Random 105 mg/dL (60-115); Potassium 4.2 mmol/L (3.3-5.1); Sodium 142 mmol/L (135-145)
[2020-10-08 13:03] LABS: Alanine Aminotransferase 13 U/L (0-31); Albumin Level 4.7 g/dL (3.5-5.0); Alkaline Phosphatase 93 U/L (39-117); Aspartate Amino Transferase 22 U/L (5-31); Bilirubin Direct 0.2 mg/dL (0.0-0.5); Bilirubin Total 0.5 mg/dL (0.0-1.0); Magnesium 2.4 mg/dL (1.6-2.6); Total Protein 7.3 g/dL (6.5-8.0)
[2020-10-08 13:07] LABS: B Type Natriuretic Peptide 12 pg/mL (<100)
[2020-10-08 13:07] LABS: Troponin-I High Sensitivity 3.8 ng/L (<3.5-17.0)
[2020-10-08] MEDS: Doxycycline Hyclate 100 MG in 0.9 % Sodium Chloride 250 ML 166.67 MG IV (13:11)
--- NOTE | 2020-10-08 13:49 | PC.NURSE ---
Patient awake and alert. skin pwd, resp even and labored. speaking in full, clear sentences. ST via tele. patient reports breathing is feeling better, appears more comfortable. i/e wheezes throughout
--- NOTE | 2020-10-08 14:41 | P.HPHOSP_ITS ---
History of Present Illness Date of Service: 10/08/20 Chief Complaint: sob 74-year-old woman presented to the ER with complaints of worsening shortness of breath. She reports she has a history of COPD. She reports a history of productive cough over the last 24 hours with fever and increased mucus production at home. She denied chest pain, nausea, vomiting, diarrhea, recent travel, sick contacts. She went to see her washery engineer today and was noted to and was noted to be tachycardic in the 130s with increased work of breathing. She was sent over to the ER for further evaluation. Chest x-ray was negative for any consolidation or effusion. She was noted to be tachycardic and tachypneic secondary to albuterol treatments. She was COVID negative, she did not have any fever leukocytosis. In the ER she was given albuterol, magnesium, Rocephin, doxycycline. She will be admitted for further management and treatment of acute on chronic COPD exacerbation. Review of Systems Review of Systems: Appearing in no acute distress head is normocephalic atraumatic eyes pupils are PERRLA sclera is anicteric mouth throat mucous membranes are intact and moist neck is supple no lymphadenopathy, no JVD noted lung sounds are clear to auscultation heart regular rate rhythm, clear S1, S2 positive bowel sounds, abdomen is soft, nontender neuro patient is alert x3, no focal deficits [facility] Medical History (Updated 10/08/20 @ 17:28 by Ella Ruiz NP) Acute exacerbation of COPD with asthma Allergic rhinitis COPD (chronic obstructive pulmonary disease) History of smoking at least 1 pack per day for at least 30 years Hypertension Hypothyroidism Family History Mother Heart problem Surgical History S/P cardiac cath Social History Household Members: None Housing: Apartment Patient Tobacco Use Status: Former Tobacco user Use of substances other than those prescribed or required for medical reasons: No Advance Directives: Yes Advance Directives on File: Yes Advance Directives Date on File: 07/19/20 Meds Allergies Allergy/AdvReac Type Severity Reaction Status Date / Time penicillin V Allergy Intermediate rash Verified 10/08/20 11:26 Active Medications: Current Medications Generic Name Dose Route Start Last Admin Trade Name Freq PRN Reason Stop Dose Admin Acetaminophen 650 mg 10/08/20 14:37 Acetaminophen 325 Mg Tablet PO Q6H PRN Pain, Mild (Pain Scale 1-3) Albuterol Sulfate 2.5 mg 10/08/20 16:00 Albuterol Sulfate (0.083%) 2.5 Mg/3 Ml Vial.Neb INHALE RQ4H WHILE AWAKE [facility] Azithromycin 500 mg/ Sodium 250 mls @ 125 mls/hr 10/08/20 14:45 Chloride IV Q24H RAMANDEEP Methylprednisolone Sodium Succinate 40 mg 10/08/20 14:45 Methylprednisolone Sod Succ 40 Mg/Ml Vial IVPUSH Q8H RAMANDEEP Ondansetron HCl 4 mg 10/08/20 14:37 Ondansetron Hcl 4 Mg/2 Ml Vial IVPUSH Q8H PRN Nausea and Vomiting Pharmacy Consult 1 each 10/08/20 11:48 Consult Rx Perform Med Rec MISCELLANE ONCE PRN Consult order Sodium Chloride 3 ml 10/08/20 16:00 0.9 % Sodium Chloride Flush 3 Ml Syringe IVFLUSH QSHIFT [facility] Home Medications Medication Instructions Recorded Confirmed Last Taken Type atorvastatin 20 mg PO BEDTIME 12/28/19 10/08/20 10/07/20 History loratadine 10 mg PO DAILY PRN 12/28/19 10/08/20 07/19/20 History losartan 50 mg PO DAILY 12/28/19 10/08/20 10/07/20 History metoprolol succinate 50 mg 50 mg PO DAILY 03/06/20 10/08/20 10/07/20 History tablet,extended release 24 hr aspirin 81 mg PO QPM 07/19/20 10/08/20 10/07/20 History fluticasone propion-salmeterol 1 puff PO Q12H 07/19/20 10/08/20 10/07/20 History [Wixela Inhub] levothyroxine 50 mcg PO DAILY 10/08/20 10/08/20 10/07/20 History Physical Exam Vital Signs and Narrative: Vital Signs: Last Vital Signs Temp 98.4 F 10/08/20 11:27 Pulse 113 H 10/08/20 13:48 Resp 22 H 10/08/20 13:48 BP 132/76 10/08/20 13:48 Pulse Ox 98 10/08/20 13:48 Oxygen Flow Rate 2 10/08/20 11:27 Body Mass Index 21.4 Appearing in no acute distress head is normocephalic atraumatic eyes pupils are PERRLA sclera is anicteric mouth throat mucous membranes are intact and moist neck is supple no lymphadenopathy, no JVD noted lung sounds expiratory wheezes heart regular rate rhythm, clear S1, S2 positive bowel sounds, abdomen is soft, nontender neuro patient is alert x3, no focal deficits Results Labs CBC and Chem 7: 10/08/20 12:16 10/08/20 12:15 Labs: Laboratory Results - last 24 hr 10/08/20 10/08/20 10/08/20 12:14 12:14 12:14 MCV MCH MCHC RDW Plt Count MPV Immature Gran % (Auto) Neut % (Auto) Lymph % (Auto) [place] % (Auto) Eos % (Auto) Baso % (Auto) Lymph # (Auto) [place] # (Auto) Eos # (Auto) Baso # (Auto) Abs Immat Gran (auto) Absolute Neuts (auto) Absolute Nucleated RBC Nucleated RBC % (auto) PT INR APTT VBG pH VBG pCO2 VBG pO2 VBG HCO3 VBG O2 Saturation VBG Base Excess Anion Gap Estim Creat Clear Calc Estimated GFR Random Glucose Lactic Acid 1.3 Calcium Magnesium 2.4 Total Bilirubin 0.5 Direct Bilirubin 0.2 AST 22 ALT 13 Alkaline Phosphatase 93 Troponin I High Sens 3.8 B-Natriuretic Peptide Total Protein 7.3 Albumin 4.7 COVID-19 (AIDAN) COVID-19 Clin Com 10/08/20 10/08/20 10/08/20 12:15 12:15 12:15 MCV MCH MCHC RDW Plt Count MPV Immature Gran % (Auto) Neut % (Auto) Lymph % (Auto) [place] % (Auto) Eos % (Auto) Baso % (Auto) Lymph # (Auto) [place] # (Auto) Eos # (Auto) Baso # (Auto) Abs Immat Gran (auto) Absolute Neuts (auto) Absolute Nucleated RBC Nucleated RBC % (auto) PT INR APTT VBG pH VBG pCO2 VBG pO2 VBG HCO3 VBG O2 Saturation VBG Base Excess Anion Gap 15 Estim Creat Clear Calc 49.3 Estimated GFR > 60 Random Glucose 105 Lactic Acid Calcium 9.5 D Magnesium Total Bilirubin Direct Bilirubin AST ALT Alkaline Phosphatase Troponin I High Sens B-Natriuretic Peptide 12 Total Protein Albumin COVID-19 (AIDAN) Negative COVID-19 Clin Com See Note 10/08/20 10/08/20 10/08/20 12:15 12:16 12:19 MCV 93.6 MCH 30.8 MCHC 32.9 RDW 13.3 Plt Count 242 MPV 9.3 L Immature Gran % (Auto) 0.2 Neut % (Auto) 67.4 Lymph % (Auto) 13.5 L [place] % (Auto) 6.7 Eos % (Auto) 11.0 H Baso % (Auto) 1.2 Lymph # (Auto) 1.1 L [place] # (Auto) 0.5 Eos # (Auto) 0.9 H Baso # (Auto) 0.1 Abs Immat Gran (auto) 0.02 Absolute Neuts (auto) 5.5 Absolute Nucleated RBC 0.000 Nucleated RBC % (auto) 0.0 PT 11.7 INR 1.0 APTT 34.1 VBG pH 7.27 L VBG pCO2 50 VBG pO2 39 VBG HCO3 23 VBG O2 Saturation 55.0 VBG Base Excess -4.1 Anion Gap Estim Creat Clear Calc Estimated GFR Random Glucose Lactic Acid Calcium Magnesium Total Bilirubin Direct Bilirubin AST ALT Alkaline Phosphatase Troponin I High Sens B-Natriuretic Peptide Total Protein Albumin COVID-19 (AIDAN) COVID-19 Clin Com Imaging Radiologist's Impressions: Impressions Chest X-Ray 10/08/20 11:49 IMPRESSION: Unremarkable chest exam. Assessment and Plan (1) COPD (chronic obstructive pulmonary disease): Qualifiers: COPD type: COPD with acute exacerbation Qualified Code(s): J44.1 - Chronic obstructive pulmonary disease with (acute) exacerbation Status: Acute 74-year-old woman admitted with acute COPD exacerbation with no hypoxia Acute on chronic COPD exacerbation. No consolidation on chest x-ray Solu-Medrol Schedule DuoNebs Supplemental oxygen as needed Robitussin Tachycardia and tachypnea secondary to COPD and treatments not sepsis History of coronary artery disease Continue aspirin, statin and beta-vanessa Hypertension. Stable blood pressure. Continue loratadine Hypothyroidism. Continue levothyroxine DVT prophylaxis with heparin Attending Dr. Ivy Full code Quality Stroke Does the patient have a stroke diagnosis?: No VTE Prior VTE?: No VTE Risk Level:: Medical - moderate - high VTE Device Contraindication: Treatment Not Indicated VTE Drug Contraindication: N/A - Med Ordered
[2020-10-08] MEDS: Metoprolol Succinate ER 50 MG TAB.ER.24H PO (15:30)
[2020-10-08] MEDS: Azithromycin 500 MG in 0.9 % Sodium Chloride 250 ML 125 MG IV (15:31)
[2020-10-08] MEDS: methylPREDNISolone Sod Succ 40 MG/ML VIAL IVPUSH ×2 (15:31→22:36)
--- NOTE | 2020-10-08 15:36 | PC.NURSE ---
Patient ambulated to bathroom and back, severe dyspnea noted o2 sat 81%. PLaced back on 3L- 97%. ST on tele 100-110 no ectopy. Aware of plan to admit pending room assignment.
--- NOTE | 2020-10-08 15:53 | PM.EVENT ---
Event Note Date of Service: 10/08/20 Event Note: Attending Attestation: Patient seen and examined independently and I was present during andre portion of E/M service. Agree with Chante Ruiz NP's history, physical, assessment, and plan. In brief, a 74 yo F being admitted for acute respiratory failure with hypoxia (oxygen saturation down to mid 80s and tachypnea in the 30-40s at pulmonary office, subsequently placed on O2 and brought to the ED) -- secondary to COPD exacerbation. Will need IV steroids and scheduled bronchodilators (will use xopenenx in light of her tachycardia).
[2020-10-08] MEDS: Ipratropium Bromide 0.5 MG/2.5 ML SOLUTION INHALE ×2 (16:05→20:07)
--- NOTE | 2020-10-08 17:57 | PC.NURSE ---
Patient remains in bed. Complaint free. Ate ham sandwich and jello with gingerale. 3L nasal cannula titrated down to 2L. NSR on tele '.
[2020-10-08] MEDS: 0.9 % Sodium Chloride Flush 3 ML SYRINGE IVFLUSH ×2 (19:01→22:38)
[2020-10-08] MEDS: Heparin Sodium,Porcine 5,000 UNIT/ML VIAL 5000 UNIT SUBCUT (19:45)
--- NOTE | 2020-10-08 21:33 | PC.NURSE ---
nurse to nurse report given to Nancy GUTIERREZ
[2020-10-08] MEDS: Aspirin Enteric Coated 81 MG TABLET.DR PO (23:16)
[2020-10-08] MEDS: guaiFENesin DM 100/10/5 ML 5 ML SYRUP PO (23:16)
[2020-10-08] MEDS: Atorvastatin Calcium 20 MG TABLET PO (23:16)
[2020-10-09] VITALS (12 sets, daily range): BP systolic 103–146; BP diastolic 58–81; PULSE 72–96; RESP 18–20; TEMP 36.1–37.2; O2SAT 91–98
[2020-10-09 05:58] LABS: Basophils Percent Auto 0.5 % (0-2); Eosinophils Percent Auto 0.3 % (0-4); Hematocrit 38.7 % (37-47); Hemoglobin 12.7 g/dl (12.0-16.0); Imm Gran Abs Auto 0.01 X10*3/uL (0.00-0.03); Imm Gran Pct Auto 0.3 % (0.0-0.4); Lymphocytes Absolute Auto 0.5 X10*3/uL (1.2-4.9); Lymphocytes Percent Auto 14.3 % (20-40); MANUAL DIFF FLAG SCAN; Mean Corpuscular HGB Conc 32.8 g/dl (31.0-35.0); Mean Corpuscular Hemoglobin 30.8 pg (27.0-33.0); Mean Corpuscular Volume 93.7 fL (80-98); Mean Platelet Volume 9.7 fL (9.4-12.3); Monocytes Percent Auto 1.1 % (2-11); Neutrophils Absolute Auto 3.1 X10*3/uL (2.0-8.3); Neutrophils Percent Auto 83.5 % (45-73); Platelet Count 197 X10*3/uL (160-400); Red Blood Count 4.13 X10*6/uL (4.20-5.50); Red Cell Distribution Width 13.2 % (11.0-16.0); SCAN SMEAR FLAG 1; White Blood Count 3.7 X10*3/uL (4.8-10.8)
[2020-10-09] MEDS: Heparin Sodium,Porcine 5,000 UNIT/ML VIAL 5000 UNIT SUBCUT ×2 (06:00→20:19)
[2020-10-09] MEDS: Levothyroxine Sodium 50 MCG TABLET PO (06:00)
[2020-10-09] MEDS: guaiFENesin DM 100/10/5 ML 5 ML SYRUP PO (06:04)
[2020-10-09 06:16] LABS: Anion Gap 14 (12-20); Blood Urea Nitrogen 10 mg/dL (9-16); Calcium 8.9 mg/dL (8.4-10.2); Carbon Dioxide 20 mmol/L (22-29); Chloride 111 mmol/L (96-108); Creatinine Clr Calc Pharmacy 55.2; Estimated Glomerular Filt Rate > 60; Glucose Random 130 mg/dL (60-115); Potassium 4.5 mmol/L (3.3-5.1); Sodium 140 mmol/L (135-145)
[2020-10-09 06:23] LABS: SLIDE REVIEW VERIFIED
[2020-10-09] MEDS: methylPREDNISolone Sod Succ 40 MG/ML VIAL IVPUSH ×2 (07:14→15:36)
[2020-10-09] MEDS: Ipratropium Bromide 0.5 MG/2.5 ML SOLUTION INHALE ×4 (07:37→20:37)
[2020-10-09] MEDS: Losartan Potassium 50 MG TABLET PO (08:55)
[2020-10-09] MEDS: Metoprolol Succinate ER 50 MG TAB.ER.24H PO (08:55)
[2020-10-09] MEDS: 0.9 % Sodium Chloride Flush 3 ML SYRINGE IVFLUSH ×3 (08:55→20:20)
--- NOTE | 2020-10-09 08:55 | MHC.CM.PN ---
CM met with Patient at bedside and addressed IMM, providing her with the original and placing a copy on the chart. Patient lives alone in an apartment at [facility] and she has a walker, but does not uses it. Patient is interested in a referral to [facility], who she has had services with in the past(PT Recommends home with services);CM has initiated and will follow for dc planning. PCP is Dr. Fili Leiva. Patient up to this time has not required home O2.
--- NOTE | 2020-10-09 11:00 | P.PNIM_ITS ---
Subjective Subjective Date of Service: 10/09/20 Interval History: Follow up COPD exacerbation still wheezing Physical Exam Vital Signs: Vital Signs: Last Vital Signs Temp 98.8 F 10/09/20 07:14 Pulse 75 10/09/20 08:55 Resp 20 10/09/20 07:14 BP 142/64 H 10/09/20 08:55 Pulse Ox 93 10/09/20 07:14 Oxygen Flow Rate 2 10/08/20 11:27 Body Mass Index 23.4 Appearing in no acute distress lung sounds exp wheezing heart regular rate rhythm, clear S1, S2 positive bowel sounds, abdomen is soft, nontender neuro patient is alert x3, no focal deficits Objective Data Current Medications Generic Name Dose Route Start Last Admin Trade Name Freq PRN Reason Stop Dose Admin Acetaminophen 650 mg 10/08/20 14:37 Acetaminophen 325 Mg Tablet PO Q6H PRN Pain, Mild (Pain Scale 1-3) Aspirin 81 mg 10/08/20 21:00 10/08/20 23:16 Aspirin Enteric Coated 81 Mg Tablet.Dr PO 81 mg BEDTIME RAMANDEEP Administration Atorvastatin Calcium 20 mg 10/08/20 21:00 10/08/20 23:16 Atorvastatin Calcium 20 Mg Tablet PO 20 mg BEDTIME RAMANDEEP Administration Fluticasone/Vilanterol 1 puff 10/09/20 08:00 10/09/20 07:37 Fluticasone/Vilanterol 100/25 Blst.W.Dev INHALE Not Given RDAILY RAMANDEEP Guaifenesin/Dextromethorphan 5 ml 10/08/20 22:33 10/09/20 06:04 Guaifenesin Dm 100/10/5 Ml 5 Ml Syrup PO 5 ml Q4H PRN Administration Cough Heparin Sodium (Porcine) 5,000 unit 10/08/20 17:45 10/09/20 06:00 Heparin Sodium,Porcine 5,000 Unit/Ml Vial SUBCUT 5,000 unit Q12H RAMANDEEP Administration Azithromycin 500 mg/ Sodium 250 mls @ 125 mls/hr 10/08/20 15:00 10/08/20 17:59 Chloride IV Infused Q24H RAMANDEEP Infusion Ipratropium [place] 0.5 mg 10/08/20 16:00 10/09/20 07:37 Ipratropium [place] 0.5 Mg/2.5 Ml Solution INHALE 0.5 mg RQ4H WHILE AWAKE RAMANDEEP Administration Levalbuterol HCl 1.25 mg 10/08/20 16:00 10/09/20 07:37 Levalbuterol Hcl 1.25 Mg/0.5 Ml Vial.Neb INHALE 1.25 mg RQ4H WHILE AWAKE RAMANDEEP Administration Levothyroxine Sodium 50 mcg 10/09/20 06:30 10/09/20 06:00 Levothyroxine Sodium 50 Mcg Tablet PO 50 mcg DAILY@0630 RAMANDEEP Administration Loratadine 10 mg 10/08/20 14:40 Loratadine 10 Mg Tablet PO DAILY PRN Allergy Symptoms Losartan Potassium 50 mg 10/09/20 09:00 10/09/20 08:55 Losartan Potassium 50 Mg Tablet PO 50 mg DAILY RAMANDEEP Administration Protocol Methylprednisolone Sodium Succinate 40 mg 10/08/20 16:00 10/09/20 07:14 Methylprednisolone Sod Succ 40 Mg/Ml Vial IVPUSH 40 mg Q8H RAMANDEEP Administration Metoprolol Succinate 50 mg 10/08/20 15:00 10/09/20 08:55 Metoprolol Succinate Er 50 Mg Tab.Er.24h PO 50 mg DAILY RAMANDEEP Administration Protocol Ondansetron HCl 4 mg 10/08/20 14:37 Ondansetron Hcl 4 Mg/2 Ml Vial IVPUSH Q8H PRN Nausea and Vomiting Pharmacy Consult 1 each 10/08/20 11:48 Consult Rx Perform Med Rec MISCELLANE ONCE PRN Consult order Sodium Chloride 3 ml 10/08/20 16:00 10/09/20 08:55 0.9 % Sodium Chloride Flush 3 Ml Syringe IVFLUSH 3 ml QSHIFT RAMANDEEP Administration Labs CBC & Chem 7: 10/09/20 05:01 10/09/20 05:01 Labs: Laboratory Results - last 24 hr 10/08/20 10/08/20 10/08/20 12:14 12:14 12:14 MCV MCH MCHC RDW Plt Count MPV Immature Gran % (Auto) Neut % (Auto) Lymph % (Auto) [place] % (Auto) Eos % (Auto) Baso % (Auto) Lymph # (Auto) [place] # (Auto) Eos # (Auto) Baso # (Auto) Abs Immat Gran (auto) Absolute Neuts (auto) Absolute Nucleated RBC Nucleated RBC % (auto) Smear Tech's Comments PT INR APTT VBG pH VBG pCO2 VBG pO2 VBG HCO3 VBG O2 Saturation VBG Base Excess Anion Gap Estim Creat Clear Calc Estimated GFR Random Glucose Lactic Acid 1.3 Calcium Magnesium 2.4 Total Bilirubin 0.5 Direct Bilirubin 0.2 AST 22 ALT 13 Alkaline Phosphatase 93 Troponin I High Sens 3.8 B-Natriuretic Peptide Total Protein 7.3 Albumin 4.7 COVID-19 (AIDAN) COVID-19 Clin Com 10/08/20 10/08/20 10/08/20 12:15 12:15 12:15 MCV MCH MCHC RDW Plt Count MPV Immature Gran % (Auto) Neut % (Auto) Lymph % (Auto) [place] % (Auto) Eos % (Auto) Baso % (Auto) Lymph # (Auto) [place] # (Auto) Eos # (Auto) Baso # (Auto) Abs Immat Gran (auto) Absolute Neuts (auto) Absolute Nucleated RBC Nucleated RBC % (auto) Smear Tech's Comments PT INR APTT VBG pH VBG pCO2 VBG pO2 VBG HCO3 VBG O2 Saturation VBG Base Excess Anion Gap 15 Estim Creat Clear Calc 49.3 Estimated GFR > 60 Random Glucose 105 Lactic Acid Calcium 9.5 D Magnesium Total Bilirubin Direct Bilirubin AST ALT Alkaline Phosphatase Troponin I High Sens B-Natriuretic Peptide 12 Total Protein Albumin COVID-19 (AIDAN) Negative COVID-19 Clin Com See Note 10/08/20 10/08/20 10/08/20 12:15 12:16 12:19 MCV 93.6 MCH 30.8 MCHC 32.9 RDW 13.3 Plt Count 242 MPV 9.3 L Immature Gran % (Auto) 0.2 Neut % (Auto) 67.4 Lymph % (Auto) 13.5 L [place] % (Auto) 6.7 Eos % (Auto) 11.0 H Baso % (Auto) 1.2 Lymph # (Auto) 1.1 L [place] # (Auto) 0.5 Eos # (Auto) 0.9 H Baso # (Auto) 0.1 Abs Immat Gran (auto) 0.02 Absolute Neuts (auto) 5.5 Absolute Nucleated RBC 0.000 Nucleated RBC % (auto) 0.0 Smear Tech's Comments PT 11.7 INR 1.0 APTT 34.1 VBG pH 7.27 L VBG pCO2 50 VBG pO2 39 VBG HCO3 23 VBG O2 Saturation 55.0 VBG Base Excess -4.1 Anion Gap Estim Creat Clear Calc Estimated GFR Random Glucose Lactic Acid Calcium Magnesium Total Bilirubin Direct Bilirubin AST ALT Alkaline Phosphatase Troponin I High Sens B-Natriuretic Peptide Total Protein Albumin COVID-19 (AIDAN) COVID-19 Clin Com 10/09/20 10/09/20 05:01 05:01 MCV 93.7 MCH 30.8 MCHC 32.8 RDW 13.2 Plt Count 197 MPV 9.7 Immature Gran % (Auto) 0.3 Neut % (Auto) 83.5 H Lymph % (Auto) 14.3 L [place] % (Auto) 1.1 L Eos % (Auto) 0.3 Baso % (Auto) 0.5 Lymph # (Auto) 0.5 L [place] # (Auto) 0.0 L Eos # (Auto) 0.0 Baso # (Auto) 0.0 Abs Immat Gran (auto) 0.01 Absolute Neuts (auto) 3.1 Absolute Nucleated RBC 0.000 Nucleated RBC % (auto) 0.0 Smear Tech's Comments VERIFIED PT INR APTT VBG pH VBG pCO2 VBG pO2 VBG HCO3 VBG O2 Saturation VBG Base Excess Anion Gap 14 Estim Creat Clear Calc 55.2 Estimated GFR > 60 Random Glucose 130 H Lactic Acid Calcium 8.9 D Magnesium Total Bilirubin Direct Bilirubin AST ALT Alkaline Phosphatase Troponin I High Sens B-Natriuretic Peptide Total Protein Albumin COVID-19 (AIDAN) COVID-19 Clin Com Progress Note: A&P (1) Asthma with COPD with exacerbation: Status: Acute Assessment and Plan: 74-year-old woman admitted with acute COPD exacerbation with no hypoxia Acute on chronic COPD exacerbation. No consolidation on chest x-ray Solu-Medrol Schedule DuoNebs Supplemental oxygen as needed Robitussin Tachycardia and tachypnea secondary to COPD and treatments not sepsis Cold sore/pimple right nares mupirocin TID History of coronary artery disease Continue aspirin, statin and beta-vanessa Hypertension. Stable blood pressure. Continue loratadine Hypothyroidism. Continue levothyroxine DVT prophylaxis with heparin Attending Dr. Ivy Full code Quality Stroke Does the patient have a stroke diagnosis?: No VTE Prior VTE?: No VTE Risk Level:: Medical - moderate - high VTE Device Contraindication: Treatment Not Indicated VTE Drug Contraindication: N/A - Med Ordered
[2020-10-09] MEDS: Mupirocin 2 % Oint 22 GM TUBE 1 APPL TOPICAL ×2 (15:38→20:20)
[2020-10-09] MEDS: Azithromycin 500 MG in 0.9 % Sodium Chloride 250 ML 125 MG IV (15:38)
[2020-10-09] MEDS: Aspirin Enteric Coated 81 MG TABLET.DR PO (20:20)
[2020-10-09] MEDS: Atorvastatin Calcium 20 MG TABLET PO (20:20)
[2020-10-10] VITALS (11 sets, daily range): BP systolic 109–148; BP diastolic 63–90; PULSE 78–112; RESP 15–22; TEMP 36.4–37.2; O2SAT 91–98
[2020-10-10] MEDS: methylPREDNISolone Sod Succ 40 MG/ML VIAL IVPUSH ×4 (00:08→22:15)
[2020-10-10] MEDS: Levothyroxine Sodium 50 MCG TABLET PO (06:25)
[2020-10-10] MEDS: Heparin Sodium,Porcine 5,000 UNIT/ML VIAL 5000 UNIT SUBCUT ×2 (06:29→18:10)
[2020-10-10] MEDS: 0.9 % Sodium Chloride Flush 3 ML SYRINGE IVFLUSH ×3 (07:23→22:15)
[2020-10-10] MEDS: Losartan Potassium 50 MG TABLET PO (07:25)
[2020-10-10] MEDS: Metoprolol Succinate ER 50 MG TAB.ER.24H PO (07:25)
[2020-10-10 07:56] LABS: Anion Gap 15 (12-20); Blood Urea Nitrogen 17 mg/dL (9-16); Calcium 8.9 mg/dL (8.4-10.2); Carbon Dioxide 16 mmol/L (22-29); Chloride 114 mmol/L (96-108); Creatinine Clr Calc Pharmacy 51.6; Estimated Glomerular Filt Rate > 60; Glucose Random 127 mg/dL (60-115); Potassium 4.4 mmol/L (3.3-5.1); Sodium 141 mmol/L (135-145)
--- NOTE | 2020-10-10 07:57 | PC.NURSE ---
Pt is having difficulty breathing, has not had respiratory treatments yet. She used her own inhaler. She is agitated and anxious. MD notified to see if her 02 can be increased, currently it is at 2L.
[2020-10-10] MEDS: Ipratropium Bromide 0.5 MG/2.5 ML SOLUTION INHALE ×4 (08:17→20:46)
[2020-10-10] MEDS: Fluticasone/Vilanterol 100/25 BLST.W.DEV 1 PUFF INHALE (08:17)
--- NOTE | 2020-10-10 12:02 | P.PNIM_ITS ---
Subjective Subjective Date of Service: 10/10/20 Interval History: seen and examined this AM was upset about having to wait for her neb Rx reports still sob with min exertion reports wheezing reports coughing ROS General - no fevers or chills Cardiovascular - no chest pain Respiratory - +wheezing and coughing Abdominal- no abdominal pain, nausea, vomiting, diarrhea Physical Exam Vital Signs: Vital Signs: Last Vital Signs Temp 98.6 F 10/10/20 11:05 Pulse 96 10/10/20 11:41 Resp 18 10/10/20 11:05 BP 143/75 H 10/10/20 11:05 Pulse Ox 95 10/10/20 11:05 Oxygen Flow Rate 2 10/08/20 11:27 Body Mass Index 23.4 Const: Other: General - no acute distress, appears comfortable Cardiovascular - regular rate and rhythm, S1-S2 Lungs - diffuse wheezing and ronchi, accessory muscle use with exertion Abdomen - soft, nontender, no rebound or guarding Extremities - no edema bilaterally Neuro - awake and alert, no focal deficits Objective Data Current Medications Generic Name Dose Route Start Last Admin Trade Name Leoq PRN Reason Stop Dose Admin Acetaminophen 650 mg 10/08/20 14:37 Acetaminophen 325 Mg Tablet PO Q6H PRN Pain, Mild (Pain Scale 1-3) Aspirin 81 mg 10/08/20 21:00 10/09/20 20:20 Aspirin Enteric Coated 81 Mg Tablet.Dr PO 81 mg BEDTIME RAMANDEEP Administration Atorvastatin Calcium 20 mg 10/08/20 21:00 10/09/20 20:20 Atorvastatin Calcium 20 Mg Tablet PO 20 mg BEDTIME RAMANDEEP Administration Fluticasone/Vilanterol 1 puff 10/09/20 08:00 10/10/20 08:17 Fluticasone/Vilanterol 100/25 Blst.W.Dev INHALE 1 puff RDAILY RAMANDEEP Administration Guaifenesin/Dextromethorphan 5 ml 10/08/20 22:33 10/09/20 06:04 Guaifenesin Dm 100/10/5 Ml 5 Ml Syrup PO 5 ml Q4H PRN Administration Cough Heparin Sodium (Porcine) 5,000 unit 10/08/20 17:45 10/10/20 06:29 Heparin Sodium,Porcine 5,000 Unit/Ml Vial SUBCUT 5,000 unit Q12H RAMANDEEP Administration Azithromycin 500 mg/ Sodium 250 mls @ 125 mls/hr 10/08/20 15:00 10/09/20 19:33 Chloride IV Infused Q24H RAMANDEEP Infusion Ipratropium [place] 0.5 mg 10/08/20 16:00 10/10/20 11:40 Ipratropium [place] 0.5 Mg/2.5 Ml Solution INHALE 0.5 mg RQ4H WHILE AWAKE RAMANDEEP Administration Levalbuterol HCl 1.25 mg 10/08/20 16:00 10/10/20 11:40 Levalbuterol Hcl 1.25 Mg/0.5 Ml Vial.Neb INHALE 1.25 mg RQ4H WHILE AWAKE RAMANDEEP Administration Levothyroxine Sodium 50 mcg 10/09/20 06:30 10/10/20 06:25 Levothyroxine Sodium 50 Mcg Tablet PO 50 mcg DAILY@0630 RAMANDEEP Administration Loratadine 10 mg 10/08/20 14:40 Loratadine 10 Mg Tablet PO DAILY PRN Allergy Symptoms Losartan Potassium 50 mg 10/09/20 09:00 10/10/20 07:25 Losartan Potassium 50 Mg Tablet PO 50 mg DAILY [facility] Administration Protocol Methylprednisolone Sodium Succinate 40 mg 10/08/20 16:00 10/10/20 07:24 Methylprednisolone Sod Succ 40 Mg/Ml Vial IVPUSH 40 mg Q8H RAMANDEEP Administration Metoprolol Succinate 50 mg 10/08/20 15:00 10/10/20 07:25 Metoprolol Succinate Er 50 Mg Tab.Er.24h PO 50 mg DAILY [facility] Administration Protocol Mupirocin 1 appl 10/09/20 15:00 10/09/20 20:20 Mupirocin 2 % Oint 22 Gm Tube TOPICAL 1 appl TID [facility] Administration Protocol Ondansetron HCl 4 mg 10/08/20 14:37 Ondansetron Hcl 4 Mg/2 Ml Vial IVPUSH Q8H PRN Nausea and Vomiting Pharmacy Consult 1 each 10/08/20 11:48 Consult Rx Perform Med Rec MISCELLANE ONCE PRN Consult order Sodium Chloride 3 ml 10/08/20 16:00 10/10/20 07:23 0.9 % Sodium Chloride Flush 3 Ml Syringe IVFLUSH 3 ml QSHIFT [facility] Administration Labs CBC & Chem 7: 10/09/20 05:01 10/10/20 05:51 Labs: Laboratory Results - last 24 hr 10/10/20 05:51 Sodium 141 Potassium 4.4 Chloride 114 H Carbon Dioxide 16 L Anion Gap 15 BUN 17 H D Creatinine 0.80 Estim Creat Clear Calc 51.6 Estimated GFR > 60 Random Glucose 127 H Calcium 8.9 Microbiology Microbiology Results: Microbiology 10/08/20 12:31 Blood Culture - Preliminary Blood - Venous No growth after 24 hours. 10/08/20 12:14 Blood Culture - Preliminary Blood - Venous No growth after 24 hours. Quality Stroke Does the patient have a stroke diagnosis?: No VTE Prior VTE?: No VTE Risk Level:: Medical - moderate - high VTE Device Contraindication: Treatment Not Indicated VTE Drug Contraindication: N/A - Med Ordered Assessment and Plan (1) Asthma with COPD with exacerbation: Status: Acute Assessment and Plan: 74-year-old woman admitted with acute COPD exacerbation with no hypoxia Acute respiratory failure with hpoxia -- present on admission secondary to COPD saturations down to mid 80s on RA in the pulm office prior to ED arrival now improved as her copd improves continue to wean o2 as tolerated may need home o2 eval if not improved Acute COPD exacerbation still wheezing diffusely continue iv steroids and scheduled bronchodilators (xopenex due to tachycardia) continue xizhromax Cold sore/pimple right nares mupirocin TID History of coronary artery disease Continue aspirin, statin and beta-vanessa Hypertension. Stable blood pressure. Continue loratadine Hypothyroidism. Continue levothyroxine DVT pptx, Heparin Full Code
--- NOTE | 2020-10-10 12:29 | MHC.CM.PN ---
Per ROUNDS discussion, Patient is still SOB and not yet medically cleared for dc. Home with new [facility] is the goal and CM will follow for possible need to adjust the dc plan.
[2020-10-10] MEDS: Azithromycin 500 MG in 0.9 % Sodium Chloride 250 ML 125 MG IV (13:53)
[2020-10-10] MEDS: Mupirocin 2 % Oint 22 GM TUBE 1 APPL TOPICAL ×2 (13:56→22:15)
[2020-10-10] MEDS: Atorvastatin Calcium 20 MG TABLET PO (22:14)
[2020-10-10] MEDS: Aspirin Enteric Coated 81 MG TABLET.DR PO (22:14)
[2020-10-11] VITALS (12 sets, daily range): BP systolic 100–127; BP diastolic 55–81; PULSE 58–91; RESP 18–20; TEMP 36.2–37; O2SAT 90–98
[2020-10-11] MEDS: Heparin Sodium,Porcine 5,000 UNIT/ML VIAL 5000 UNIT SUBCUT ×2 (05:38→17:51)
[2020-10-11] MEDS: Levothyroxine Sodium 50 MCG TABLET PO (05:38)
[2020-10-11] MEDS: Ipratropium Bromide 0.5 MG/2.5 ML SOLUTION INHALE ×4 (08:14→20:30)
[2020-10-11] MEDS: Metoprolol Succinate ER 50 MG TAB.ER.24H PO (08:24)
[2020-10-11] MEDS: Losartan Potassium 50 MG TABLET PO (08:25)
[2020-10-11] MEDS: methylPREDNISolone Sod Succ 40 MG/ML VIAL IVPUSH (08:25)
[2020-10-11] MEDS: guaiFENesin DM 100/10/5 ML 5 ML SYRUP PO ×2 (08:25→19:38)
[2020-10-11] MEDS: 0.9 % Sodium Chloride Flush 3 ML SYRINGE IVFLUSH ×2 (08:26→19:39)
[2020-10-11] MEDS: Mupirocin 2 % Oint 22 GM TUBE 1 APPL TOPICAL ×2 (08:30→19:39)
--- NOTE | 2020-10-11 09:34 | P.PNIM_ITS ---
Subjective Subjective Date of Service: 10/11/20 Interval History: seen and examined this AM still coughing breathing a bit easier, but still RIOS ROS General - no fevers or chills Cardiovascular - no chest pain Respiratory - +wheezing and coughing Abdominal- no abdominal pain, nausea, vomiting, diarrhea Physical Exam Vital Signs: Vital Signs: Last Vital Signs Temp 97.7 F 10/11/20 07:23 Pulse 89 10/11/20 08:25 Resp 18 10/11/20 07:23 BP 108/55 L 10/11/20 08:25 Pulse Ox 98 10/11/20 07:23 Oxygen Flow Rate 2 10/08/20 11:27 Body Mass Index 23.4 Const: Other: General - no acute distress, appears comfortable Cardiovascular - regular rate and rhythm, S1-S2 Lungs - air entry slowly improving, still on O2 Abdomen - soft, nontender, no rebound or guarding Extremities - no edema bilaterally Neuro - awake and alert, no focal deficits Objective Data Current Medications Generic Name Dose Route Start Last Admin Trade Name Freq PRN Reason Stop Dose Admin Acetaminophen 650 mg 10/08/20 14:37 Acetaminophen 325 Mg Tablet PO Q6H PRN Pain, Mild (Pain Scale 1-3) Aspirin 81 mg 10/08/20 21:00 10/10/20 22:14 Aspirin Enteric Coated 81 Mg Tablet.Dr PO 81 mg BEDTIME RAMANDEEP Administration Atorvastatin Calcium 20 mg 10/08/20 21:00 10/10/20 22:14 Atorvastatin Calcium 20 Mg Tablet PO 20 mg BEDTIME RAMANDEEP Administration Fluticasone/Vilanterol 1 puff 10/09/20 08:00 10/10/20 08:17 Fluticasone/Vilanterol 100/25 Blst.W.Dev INHALE 1 puff RDAILY RAMANDEEP Administration Guaifenesin/Dextromethorphan 5 ml 10/08/20 22:33 10/11/20 08:25 Guaifenesin Dm 100/10/5 Ml 5 Ml Syrup PO 5 ml Q4H PRN Administration Cough Heparin Sodium (Porcine) 5,000 unit 10/08/20 17:45 10/11/20 05:38 Heparin Sodium,Porcine 5,000 Unit/Ml Vial SUBCUT 5,000 unit Q12H RAMANDEEP Administration Azithromycin 500 mg/ Sodium 250 mls @ 125 mls/hr 10/08/20 15:00 10/10/20 16:19 Chloride IV Infused Q24H RAMANDEEP Infusion Ipratropium [place] 0.5 mg 10/08/20 16:00 10/11/20 08:14 Ipratropium [place] 0.5 Mg/2.5 Ml Solution INHALE 0.5 mg RQ4H WHILE AWAKE RAMANDEEP Administration Levalbuterol HCl 1.25 mg 10/08/20 16:00 10/11/20 08:14 Levalbuterol Hcl 1.25 Mg/0.5 Ml Vial.Neb INHALE 1.25 mg RQ4H WHILE AWAKE RAMANDEEP Administration Levothyroxine Sodium 50 mcg 10/09/20 06:30 10/11/20 05:38 Levothyroxine Sodium 50 Mcg Tablet PO 50 mcg DAILY@0630 RAMANDEEP Administration Loratadine 10 mg 10/08/20 14:40 Loratadine 10 Mg Tablet PO DAILY PRN Allergy Symptoms Losartan Potassium 50 mg 10/09/20 09:00 10/11/20 08:25 Losartan Potassium 50 Mg Tablet PO 50 mg DAILY [facility] Administration Protocol Methylprednisolone Sodium Succinate 40 mg 10/08/20 16:00 10/11/20 08:25 Methylprednisolone Sod Succ 40 Mg/Ml Vial IVPUSH 40 mg Q8H RAMANDEEP Administration Metoprolol Succinate 50 mg 10/08/20 15:00 10/11/20 08:24 Metoprolol Succinate Er 50 Mg Tab.Er.24h PO 50 mg DAILY [facility] Administration Protocol Mupirocin 1 appl 10/09/20 15:00 10/11/20 08:30 Mupirocin 2 % Oint 22 Gm Tube TOPICAL 1 appl TID [facility] Administration Protocol Ondansetron HCl 4 mg 10/08/20 14:37 Ondansetron Hcl 4 Mg/2 Ml Vial IVPUSH Q8H PRN Nausea and Vomiting Pharmacy Consult 1 each 10/08/20 11:48 Consult Rx Perform Med Rec MISCELLANE ONCE PRN Consult order Sodium Chloride 3 ml 10/08/20 16:00 10/11/20 08:26 0.9 % Sodium Chloride Flush 3 Ml Syringe IVFLUSH 3 ml QSHIFT [facility] Administration Labs CBC & Chem 7: 10/09/20 05:01 10/10/20 05:51 Microbiology Microbiology Results: Microbiology 10/08/20 12:31 Blood Culture - Preliminary Blood - Venous No growth after 48 hours. 10/08/20 12:14 Blood Culture - Preliminary Blood - Venous No growth after 48 hours. Quality Stroke Does the patient have a stroke diagnosis?: No VTE Prior VTE?: No VTE Risk Level:: Medical - moderate - high VTE Device Contraindication: Treatment Not Indicated VTE Drug Contraindication: N/A - Med Ordered Assessment and Plan (1) Asthma with COPD with exacerbation: Status: Acute Assessment and Plan: 74-year-old woman admitted with acute COPD exacerbation with no hypoxia Acute respiratory failure with hpoxia -- present on admission secondary to COPD slowly improving saturations down to mid 80s on RA in the pulm office prior to ED arrival wean o2 Acute COPD exacerbation slowly improving continue iv steroids and scheduled bronchodilators (xopenex due to tachycardia) continue zithromax Cold sore/pimple right nares mupirocin TID History of coronary artery disease Continue aspirin, statin and beta-vanessa Hypertension. Stable blood pressure. Continue loratadine Hypothyroidism. Continue levothyroxine DVT pptx, Heparin Full Code
[2020-10-11 10:50] LABS: Anion Gap 14 (12-20); Blood Urea Nitrogen 23 mg/dL (9-16); Calcium 8.9 mg/dL (8.4-10.2); Carbon Dioxide 19 mmol/L (22-29); Chloride 113 mmol/L (96-108); Creatinine Clr Calc Pharmacy 41.7; Estimated Glomerular Filt Rate 55; Glucose Random 137 mg/dL (60-115); Potassium 4.2 mmol/L (3.3-5.1); Sodium 142 mmol/L (135-145)
[2020-10-11] MEDS: Aspirin Enteric Coated 81 MG TABLET.DR PO (19:38)
[2020-10-11] MEDS: Atorvastatin Calcium 20 MG TABLET PO (19:39)
[2020-10-12] VITALS (7 sets, daily range): BP systolic 112–140; BP diastolic 64–79; PULSE 65–77; RESP 19; TEMP 36.9–37.1; O2SAT 92–96
[2020-10-12] MEDS: guaiFENesin DM 100/10/5 ML 5 ML SYRUP PO (06:33)
[2020-10-12] MEDS: Heparin Sodium,Porcine 5,000 UNIT/ML VIAL 5000 UNIT SUBCUT (06:34)
[2020-10-12] MEDS: Levothyroxine Sodium 50 MCG TABLET PO (06:34)
[2020-10-12] MEDS: Fluticasone/Vilanterol 100/25 BLST.W.DEV 1 PUFF INHALE (08:28)
[2020-10-12] MEDS: Ipratropium Bromide 0.5 MG/2.5 ML SOLUTION INHALE ×2 (08:28→11:39)
[2020-10-12] MEDS: predniSONE 20 MG TABLET 40 MG PO (08:46)
[2020-10-12] MEDS: Metoprolol Succinate ER 50 MG TAB.ER.24H PO (08:46)
[2020-10-12] MEDS: Benzonatate 100 MG CAPSULE PO (08:46)
[2020-10-12] MEDS: Losartan Potassium 50 MG TABLET PO (08:47)
[2020-10-12] MEDS: Mupirocin 2 % Oint 22 GM TUBE 1 APPL TOPICAL (08:47)
[2020-10-12] MEDS: 0.9 % Sodium Chloride Flush 3 ML SYRINGE IVFLUSH (08:47)
--- NOTE | 2020-10-12 11:02 | PM.DS ---
DS: Providers Provider Date of Service: 10/12/20 Date of admission: 10/08/20 14:37 Primary care physician: Fili Leiva MD DS: Diagnosis Discharge Diagnosis (1) Asthma with COPD with exacerbation: Status: Acute DS: Medications Discharge Medications Home Medications: Home Medications Medication Instructions Recorded Confirmed atorvastatin 20 mg PO BEDTIME 12/28/19 10/08/20 loratadine 10 mg PO DAILY PRN 12/28/19 10/08/20 losartan 50 mg PO DAILY 12/28/19 10/08/20 metoprolol succinate 50 mg 50 mg PO DAILY 03/06/20 10/08/20 tablet,extended release 24 hr aspirin 81 mg PO QPM 07/19/20 10/08/20 fluticasone propion-salmeterol 1 puff PO Q12H 07/19/20 10/08/20 [Jonahela Inhub] levothyroxine 50 mcg PO DAILY 10/08/20 10/08/20 Previous Rx's Medication Instructions Recorded albuterol sulfate 90 mcg/actuation 2 puff INHALATION Q4H PRN 30 Days 07/11/20 aerosol inhaler #1 ea benzonatate [Tessalon Perles] 100 mg PO TID PRN #20 cap 10/12/20 prednisone 10 mg PO DAILY #30 tab 10/12/20 DS: Summary Hospital Course Hospital Course: From H&P on day of admission 74-year-old woman presented to the ER with complaints of worsening shortness of breath. She reports she has a history of COPD. She reports a history of productive cough over the last 24 hours with fever and increased mucus production at home. She denied chest pain, nausea, vomiting, diarrhea, recent travel, sick contacts. She went to see her contracting specialist today and was noted to and was noted to be tachycardic in the 130s with increased work of breathing. She was sent over to the ER for further evaluation. Chest x-ray was negative for any consolidation or effusion. She was noted to be tachycardic and tachypneic secondary to albuterol treatments. She was COVID negative, she did not have any fever leukocytosis. In the ER she was given albuterol, magnesium, Rocephin, doxycycline. She will be admitted for further management and treatment of acute on chronic COPD exacerbation. Patient was started on solu-medrol and and scheduled breathing treatments for acute COPD exacerbation. She initially required supplemental oxygen but gradually her respiratory status improved and she was able to be weaned to room air. Prior to discharge she had a home oxygen evlauation and did not require supplemental oxygen. She will be discharged home with prednisone taper and cough medication. She is encouraged to follow up with her PCP after discharge. Time Spent with Patient Time attestation: Total time spent providing and/or coordinating discharge services: Discharge coordination time: Greater than 30 minutes Quality: Stroke Does the patient have a stroke diagnosis?: No Physical Exam Vital Signs: Vital Signs: Last Vital Signs Temp 98.5 F 10/12/20 07:43 Pulse 74 10/12/20 08:47 Resp 19 10/12/20 07:43 BP 140/79 H 10/12/20 08:47 Pulse Ox 96 10/12/20 07:43 Oxygen Flow Rate 2 10/08/20 11:27 Body Mass Index 23.4 Const: Nutritional Appearance: well nourished HENMT: Head: Yes normocephalic and Yes atraumatic Eyes: Sclerae: sclerae normal Chest: Chest palpation & inspection: normal inspection of the chest Resp: Other: lungs mostly clear, some scattered rhonchi with coughing Effort & Inspection: normal respiratory effort and no respiratory distress Cardio: Rate: regular rate Rhythm: regular rhythm GI: Palpation (GI): Soft to palpation and nontender Neuro: Cranial nerves: Yes CN's II-XII intact bilaterally and Yes Bilaterally intact EOM present DS: Data Data Completed and Pending Labs on day of discharge: Preliminary micro results at discharge 10/08/20 12:31 Blood Culture - Preliminary Blood - Venous No growth after 48 hours. 10/08/20 12:14 Blood Culture - Preliminary Blood - Venous No growth after 48 hours. Discharge Plan Discharge Patient Disposition: Home, Self-Care Discharge Diagnosis: COPD exacerbation Referrals: Fili Leiva MD [Primary Care Provider] - 1 Week Discharge Medications: New prednisone 10 mg tablet 10 mg PO DAILY Qty: 30 RF: 0 benzonatate [Tessalon Perles] 100 mg capsule 100 mg PO TID PRN (Reason: cough) Qty: 20 RF: 0 Continued albuterol sulfate 90 mcg/actuation HFA aerosol inhaler 2 puff INHALATION Q4H PRN (Reason: Respiratory Distress) 30 Days Qty: 1 RF: 6 atorvastatin 20 mg Tablet 20 mg PO BEDTIME RF: 0 loratadine 10 mg Tablet 10 mg PO DAILY PRN (Reason: Allergy Symptoms) RF: 0 losartan 50 mg Tablet 50 mg PO DAILY RF: 0 fluticasone propion-salmeterol [Wixela Inhub] 250-50 mcg/dose blister with device 1 puff PO Q12H RF: 0 aspirin 81 mg Tablet,Delayed Release (Dr/Ec) 81 mg PO QPM RF: 0 levothyroxine 50 mcg Tablet 50 mcg PO DAILY RF: 0 metoprolol succinate 50 mg tablet extended release 24 hr 50 mg PO DAILY RF: 0 Discharge Orders: Discharge Order (Routine); Ordered 10/12/20 Ordered By: Ivory Vela Activity on Discharge: As tolerated Stand Alone Forms: Patient Portal Discharge page Care Plan Goals: see below Health Concerns: COPD exacerbation Plan of Treatment: You will be discharge home with a prednisone taper, please take entire course You can use tessalon as needed for cough Please call to schedule follow up appointment with your PCP Return to the ED if you become more short of breath Assessment: See discharge summary
--- NOTE | 2020-10-12 11:46 | MHC.CM.PN ---
pt cleared for DC today back to [facility] Home O2 eval completed, pt not requiring O2 at DC. Pt reports she can call [facility] and have their shuttle pick her up at DC.
== END 2020-10-12 12:28 | disposition home or self-care (01) | DRG 190 ==
LOC: HO.ED 12:00 → HO.EDOVER 14:55 → HO.IMC 20:30
PROVIDERS: Admitting Provider Nurse Practitioner Acute Care; Emergency Provider Emergency Medicine; PCP Internal Medicine; Visit Provider Family Medicine
DX: J44.1 Chronic obstructive pulmonary disease with (acute) exacerbation (principal); J96.21 Acute and chronic respiratory failure with hypoxia; E03.9 Hypothyroidism, unspecified; I25.10 Atherosclerotic heart disease of native coronary artery without angina pectoris; R00.0 Tachycardia, unspecified; T48.6X5A Adverse effect of antiasthmatics, initial encounter; Y92.9 Unspecified place or not applicable; I10 Essential (primary) hypertension; Z20.822 Contact with and (suspected) exposure to COVID-19; Z87.891 Personal history of nicotine dependence; Z88.0 Allergy status to penicillin; Z79.82 Long term (current) use of aspirin; Z79.52 Long term (current) use of systemic steroids; Z79.890 Hormone replacement therapy; Z79.899 Other long term (current) drug therapy
CPT/HCPCS: 36415; 71045; 80048; 80076; 82803; 83605; 83735; 83880; 84484; 85025; 85610; 85730; 87040; 87635; 93005; 94644; 99285; J0456; J0696; J2920; J3475

== ENCOUNTER → 2020-10-18 13:58 | Outpatient (BNVA) | payer MEDICARE, SELFPAY | PROVIDERS: PCP Internal Medicine; Referring Provider Internal Medicine; Visit Provider Surgery | DX: D49.2 Neoplasm of unspecified behavior of bone, soft tissue, and skin (principal) | CPT/HCPCS: 99202 ==

== ENCOUNTER 2020-11-02 06:51 | Outpatient (REF) | payer MEDICARE, SELFPAY ==
[2020-11-02 07:37] VITALS: BP 176/95; PULSE 100; RESP 24; TEMP 36.9; O2SAT 95
[2020-11-02 07:39] VITALS: BMI 22.8
--- NOTE | 2020-11-02 08:42 | W.PM.OPN ---
Operative Note Operative Note Date of Service: 11/02/20 Narrative: Preoperative diagnosis: Skin lesion upper right lip Postoperative diagnosis: Sebaceous cyst right upper lip Procedure: Excision of sebaceous cyst right upper lip Surgeon: Deven Hook MD Knife Setter Assembler: No physician Anesthesia: Local Indications for procedure: 75-year-old female patient presenting with an enlarged mass over the right lip just below the nose. Initially this appeared pearly but now has a central punctum suggestive of a sebaceous cyst. Operative findings: Sebaceous cyst right upper lip, 1 cm diameter Specimen: Sebaceous cyst right upper lip Estimated blood loss: 2 mL Complications: None Procedure details: Patient was brought to the minor surgery suite placed in a supine position. The site of surgery was confirmed with the patient. Informed consent was confirmed. The patient's skin was prepped with Betadine and draped in a sterile fashion. Local anesthesia consisting of 1% lidocaine with epinephrine was then infiltrated circumferentially around the epidermal inclusion cyst. The central punctum was opened and a large amount of sebaceous material was then evacuated. Gentle probing of the cyst produced the wall of the cyst which was excised using a scalpel and Metzenbaum scissors. This was sent to pathology for further examination. Wounds were then irrigated with saline solution and suctioned dry. A single 6 0 nylon suture was then used to close the incision. Sterile dressings consisting of bacitracin and spot Band-Aid were applied. The patient tolerated the procedure well and was discharged to home in stable condition.
[2020-11-02 10:13] LABS: MANUAL DIFF FLAG NO
[2020-11-02 10:20] LABS: Basophils Absolute Auto 0.1 X10*3/uL (0.0-0.2); Basophils Percent Auto 0.7 % (0-2); Eosinophils Absolute Auto 0.4 X10*3/uL (0.0-0.4); Eosinophils Percent Auto 4.9 % (0-4); Hematocrit 43.1 % (37-47); Hemoglobin 13.8 g/dl (12.0-16.0); Imm Gran Abs Auto 0.01 X10*3/uL (0.00-0.03); Imm Gran Pct Auto 0.1 % (0.0-0.4); Lymphocytes Percent Auto 14.3 % (20-40); Mean Corpuscular Hemoglobin 30.5 pg (27.0-33.0); Mean Corpuscular Volume 95.4 fL (80-98); Mean Platelet Volume 9.5 fL (9.4-12.3); Monocytes Absolute Auto 0.5 X10*3/uL (0.1-1.2); Neutrophils Absolute Auto 5.2 X10*3/uL (2.0-8.3); Platelet Count 235 X10*3/uL (160-400); Red Blood Count 4.52 X10*6/uL (4.20-5.50); Red Cell Distribution Width 13.5 % (11.0-16.0); White Blood Count 7.2 X10*3/uL (4.8-10.8)
[2020-11-02 11:08] LABS: Alanine Aminotransferase 15 U/L (0-31); Albumin Level 4.3 g/dL (3.5-5.0); Alkaline Phosphatase 83 U/L (39-117); Anion Gap 16 (12-20); Aspartate Amino Transferase 22 U/L (5-31); Bilirubin Total 0.6 mg/dL (0.0-1.0); Blood Urea Nitrogen 11 mg/dL (9-16); Calcium 9.2 mg/dL (8.4-10.2); Carbon Dioxide 21 mmol/L (22-29); Chloride 108 mmol/L (96-108); Cholesterol 298 mg/dL; Estimated Glomerular Filt Rate > 60; Glucose Fasting 97 mg/dL (60-99); HDL Cholesterol 81 mg/dL; LDL Cholesterol Calculated 193 mg/dl; Potassium 4.2 mmol/L (3.3-5.1); Sodium 141 mmol/L (135-145); Total Protein 6.7 g/dL (6.5-8.0); Triglycerides 124 mg/dL
[2020-11-02 11:11] LABS: Thyroid Stimulating Hormone 10.35 uIU/mL (0.32-4.0); Vitamin D 25-OH Total 12.9 ng/mL (>30)
== END 2020-11-02 06:52 | disposition home or self-care (01) ==
LOC: HO.MS 06:51
PROVIDERS: PCP Internal Medicine; Visit Provider Surgery
PROC: (CPT 11441; principal; 2020-11-02 08:00)
DX: L72.3 Sebaceous cyst (principal); J44.9 Chronic obstructive pulmonary disease, unspecified; I10 Essential (primary) hypertension; E03.9 Hypothyroidism, unspecified; Z87.891 Personal history of nicotine dependence; Z79.51 Long term (current) use of inhaled steroids; Z79.82 Long term (current) use of aspirin; Z79.899 Other long term (current) drug therapy; Z88.0 Allergy status to penicillin
CPT/HCPCS: 11441; 36415; 80053; 80061; 82306; 84439; 84443; 85025; 88304

== ENCOUNTER → 2020-11-09 10:11 | Outpatient (BNVA) | payer MEDICARE, SELFPAY | PROVIDERS: PCP Internal Medicine; Referring Provider Internal Medicine; Visit Provider Surgery | DX: Z48.817 Encounter for surgical aftercare following surgery on the skin and subcutaneous tissue (principal); Z87.2 Personal history of diseases of the skin and subcutaneous tissue | CPT/HCPCS: 99211 ==

== ENCOUNTER 2021-01-19 08:00 | Inpatient (IN) | payer MEDICARE, SELFPAY ==
[2021-01-19] VITALS (13 sets, daily range): BP systolic 121–192; BP diastolic 62–112; PULSE 97–132; RESP 17–28; TEMP 36.3–37.5; O2SAT 93–100; BMI 23.9
--- NOTE | ~2021-01-19 | XR_ITS ---
EXAMINATION: XR CHEST CLINICAL INFORMATION: SOB and cough. COMPARISON: None TECHNIQUE: Frontal view of the chest was obtained. FINDINGS: No significant abnormality is noted involving the heart, lungs, mediastinum, bony thorax or soft tissues. XR/XR chest 1V IMPRESSION: Unremarkable chest examination.
--- NOTE | 2021-01-19 08:20 | ECG_ITS ---
Test Reason : DIFFICULTY BREATHING Blood Pressure : / mmHG Vent. Rate : 126 BPM Atrial Rate : 126 BPM P-R Int : 138 ms QRS Dur : 082 ms QT Int : 324 ms P-R-T Axes : 084 092 077 degrees QTc Int : 469 ms Sinus tachycardia with Premature atrial complexes Rightward axis Nonspecific ST abnormality Inferior leads Abnormal ECG Premature atrial complexes are new Referred By: Lexis Haile Electronically Signed By:ASHLEY BAEZ MD
[2021-01-19 08:31] LABS: MANUAL DIFF FLAG NO
[2021-01-19] MEDS: Albuterol/Iprat 2.5/0.5MG 3 ML AMPUL.NEB INHALE (08:35)
[2021-01-19] MEDS: Albuterol Sulfate (0.083%) 2.5 MG/3 ML VIAL.NEB 7.5 MG INHALE (08:35)
[2021-01-19] MEDS: Magnesium Sulfate/H2O 2 GM/50 ML PIGGYBACK IV (08:37)
[2021-01-19 08:39] LABS: Basophils Absolute Auto 0.1 X10*3/uL (0.0-0.2); Basophils Percent Auto 1.4 % (0-2); Eosinophils Absolute Auto 0.6 X10*3/uL (0.0-0.4); Eosinophils Percent Auto 6.5 % (0-4); Hematocrit 47.7 % (37-47); Hemoglobin 15.6 g/dl (12.0-16.0); Imm Gran Abs Auto 0.04 X10*3/uL (0.00-0.03); Imm Gran Pct Auto 0.4 % (0.0-0.4); Lymphocytes Absolute Auto 1.9 X10*3/uL (1.2-4.9); Lymphocytes Percent Auto 19.8 % (20-40); Mean Corpuscular HGB Conc 32.7 g/dl (31.0-35.0); Mean Corpuscular Hemoglobin 30.1 pg (27.0-33.0); Mean Corpuscular Volume 91.9 fL (80-98); Mean Platelet Volume 9.5 fL (9.4-12.3); Monocytes Absolute Auto 0.5 X10*3/uL (0.1-1.2); Neutrophils Absolute Auto 6.6 X10*3/uL (2.0-8.3); Neutrophils Percent Auto 66.9 % (45-73); Platelet Count 269 X10*3/uL (160-400); Red Blood Count 5.19 X10*6/uL (4.20-5.50); Red Cell Distribution Width 13.1 % (11.0-16.0); White Blood Count 9.8 X10*3/uL (4.8-10.8)
[2021-01-19] MEDS: cefTRIAXone sodium 1 GM in 0.9 % Sodium Chloride 50 ML IV (08:41)
--- NOTE | 2021-01-19 08:44 | PC.NURSE ---
OF NOTE: Blood cultures were obtained on Sheri PRIOR to initiating Rocephin, despite the times that appear scanned.
--- NOTE | 2021-01-19 08:47 | ED.SOB ---
HPI - SOB/Dyspnea General Chief Complaint: Dyspnea Stated Complaint: Shortness of breath Time Seen by Provider: 01/19/21 08:12 Source: patient and EMS Mode of arrival: EMS History of Present Illness HPI Narrative: 75-year-old female with past medical history of COPD, HTN, hypothyroid, BIBA c/o productive cough, worsening SOB, and chest discomfort since this morning. Denies fever, chills, abdominal pain, LE edema, recent travel, sick contacts. Patient received 3 DuoNebs and Solu-Medrol by EMS [facility]. elicited complaint: shortness of breath, cough and asthma attack Related Data Home Medications Medication Instructions Recorded Confirmed atorvastatin 20 mg tablet 20 mg PO DAILY 12/28/19 01/19/21 losartan 50 mg tablet 50 mg PO DAILY 12/28/19 01/19/21 metoprolol succinate 50 mg 50 mg PO DAILY 03/06/20 01/19/21 tablet,extended release 24 hr aspirin 81 mg tablet,delayed 81 mg PO QPM 07/19/20 01/19/21 release budesonide-formoterol HFA 80 1 puff INHALATION BID 01/19/21 01/19/21 mcg-4.5 mcg/actuation aerosol inhaler (Symbicort) levothyroxine 100 mcg tablet 1 tab PO DAILY 01/19/21 01/19/21 Previous Rx's Medication Instructions Recorded albuterol sulfate 90 mcg/actuation 2 puff INHALATION Q4H PRN 30 Days 07/11/20 aerosol inhaler #1 ea albuterol sulfate 2.5 mg INHALATION Q4-6H PRN #150 ml 12/28/20 Allergies Allergy/AdvReac Type Severity Reaction Status Date / Time penicillin V Allergy Intermediate rash Verified 11/09/20 10:32 Review of Systems Review of Systems: Constitutional: No Fever, No Chills, No Fatigue, No Malaise ENT/Mouth: No Ear Pain, No Nasal Congestion, No sore throat Eyes: No Eye Pain, No Swelling, No Redness Cardiovascular: + Chest Pain, + SOB, No Dyspnea on Exertion, No Edema, No Palpitations Respiratory: + Cough, + Sputum, No Wheezing, No Smoke Exposure, + Dyspnea Gastrointestinal: No Nausea, No Vomiting, No Diarrhea, No Constipation, No Abdominal pain Genitourinary: No Dysuria,No Flank Pain Musculoskeletal: No joint pain, No Myalgias, No Joint Swelling Skin: No Skin Lesions, No rash Neuro: No Weakness, No Numbness, No Paresthesias, No Dizziness, No Headache Yes all other systems are reviewed and are negative [facility] Past Medical History Attestation statement: The following information was validated with the patient. Medical History (Updated 01/19/21 @ 10:43 by MARY Joseph) Acute exacerbation of COPD with asthma Allergic rhinitis COPD (chronic obstructive pulmonary disease) History of smoking at least 1 pack per day for at least 30 years Hypertension Hypothyroidism Surgical History S/P cardiac cath Family History Family History Mother Heart problem Social History Social History Household Members: None Housing: Assisted Living Facility Do you presently have visiting nurse or other home services: No (lives at [facility]. 1 meal per day provided, laundry done) Alcohol intake: never Patient Tobacco Use Status: Former Tobacco user Use of substances other than those prescribed or required for medical reasons: No Advance Directives: Yes Advance Directives on File: Yes Advance Directives Date on File: 07/19/20 service: No Current occupational status: retired Physical Exam Vital Signs: Vital Signs: Last Vital Signs Temp 98.3 F 01/19/21 08:06 Pulse 128 H 01/19/21 09:25 Resp 28 H 01/19/21 08:06 BP 165/86 H 01/19/21 09:25 Pulse Ox 97 01/19/21 08:06 Oxygen Flow Rate 3 01/19/21 08:06 Body Mass Index 23.9 Const: General: cooperative Orientation/consciousness: patient oriented x3 Limitations: no limitations HENMT: Head: Yes normal to inspection Ears: hearing grossly normal bilaterally General nose exam: Normal external nose present Face and sinus: Yes normal facial exam Eyes: General: appearance normal, both eyes and all related structures EOM: EOMs intact bilaterally Neck: Neck: Yes normal visual inspection Resp: Effort & Inspection: respiratory distress and tachypneic Auscultation: wheezes expiratory wheezes and throughout and diminished lung sounds bilateral in the lower lung tariq Cardio: Rate: tachycardic Heart sounds: S1 normal heart sound present and S2 normal heart sound present GI: Inspection: Yes normal to inspection Palpation (GI): Soft to palpation, nontender and no guarding Skin: Rashes: no rashes Wounds: no wounds Neuro: General: patient oriented x3 and tone normal Extrem: General: Yes normal to inspection, Yes no pedal edema and Yes no calf tenderness Course Course Course Narrative: -0902-- no leukocytosis, CO2 18, lactic acid elevated at 4.6 > due to albuterol treatments not from severe sepsis. Tachycardia also from albuterol. -troponin 9.6 > will obtain 3 hour repeat -1040--XR chest 1V IMPRESSION: Unremarkable chest examination. ? -COVID-19 negative MDM - SOB/Dyspnea MDM Narrative Medical decision making narrative: 75-year-old female with past medical history of COPD, HTN, hypothyroid, BIBA c/o productive cough, worsening SOB, and chest discomfort since this morning. On exam hypertensive, tachypneic, tachycardic, diffuse expiatory wheeze throughout with decreased breath sounds, concern for COPD exacerbation. Rule out pneumonia/COVID-19. Lower concern for ACS/PE or CHF Plan: EKG, labs, CXR, COVID-19 testing, DuoNeb, magnesium, anticipated admission Medical Records Attestation: I reviewed the patient's medical records. Lab Data Attestation: I reviewed the patient's lab results. Result diagrams: 01/19/21 08:24 01/19/21 08:24 Labs: Lab Results 01/19/21 01/19/21 01/19/21 Range/Units 08:23 08:24 08:24 WBC 9.8 (4.8-10.8) X10*3/uL RBC 5.19 (4.20-5.50) X10*6/uL Hgb 15.6 (12.0-16.0) g/dl Hct 47.7 H (37-47) % MCV 91.9 (80-98) fL MCH 30.1 (27.0-33.0) pg MCHC 32.7 (31.0-35.0) g/dl RDW 13.1 (11.0-16.0) % Plt Count 269 (160-400) X10*3/uL MPV 9.5 (9.4-12.3) fL Immature Gran % (Auto) 0.4 (0.0-0.4) % Neut % (Auto) 66.9 (45-73) % Lymph % (Auto) 19.8 L (20-40) % [place] % (Auto) 5.0 (2-11) % Eos % (Auto) 6.5 H (0-4) % Baso % (Auto) 1.4 (0-2) % Lymph # (Auto) 1.9 (1.2-4.9) X10*3/uL [place] # (Auto) 0.5 (0.1-1.2) X10*3/uL Eos # (Auto) 0.6 H (0.0-0.4) X10*3/uL Baso # (Auto) 0.1 (0.0-0.2) X10*3/uL Abs Immat Gran (auto) 0.04 H (0.00-0.03) X10*3/uL Absolute Neuts (auto) 6.6 (2.0-8.3) X10*3/uL Absolute Nucleated RBC 0.000 (0.0-0.012) X10*3/uL Nucleated RBC % (auto) 0.0 (0.0-0.2) /100WBC Sodium 140 (135-145) mmol/L Potassium 4.0 (3.3-5.1) mmol/L Chloride 107 (96-108) mmol/L Carbon Dioxide 18 L (22-29) mmol/L Anion Gap 19 (12-20) BUN 11 (9-16) mg/dL Creatinine 0.84 (0.5-1.4) mg/dL Estim Creat Clear Calc 47.1 Estimated GFR > 60 Random Glucose 117 H (60-115) mg/dL Lactic Acid (0.5-2.0) mmol/L Calcium 9.0 (8.4-10.2) mg/dL Magnesium 2.1 (1.6-2.6) mg/dL Total Bilirubin 0.3 (0.0-1.0) mg/dL Direct Bilirubin < 0.2 (0.0-0.5) mg/dL AST 26 (5-31) U/L ALT 16 (0-31) U/L Alkaline Phosphatase 100 D (39-117) U/L Troponin I High Sens (<3.5-17.0) ng/L B-Natriuretic Peptide (<100) pg/mL Total Protein 7.5 (6.5-8.0) g/dL Albumin 5.0 (3.5-5.0) g/dL COVID-19 (AIDAN) Negative (Negative) COVID-19 Clin Com See Note 01/19/21 01/19/21 Range/Units 08:24 08:24 WBC (4.8-10.8) X10*3/uL RBC (4.20-5.50) X10*6/uL Hgb (12.0-16.0) g/dl Hct (37-47) % MCV (80-98) fL MCH (27.0-33.0) pg MCHC (31.0-35.0) g/dl RDW (11.0-16.0) % Plt Count (160-400) X10*3/uL MPV (9.4-12.3) fL Immature Gran % (Auto) (0.0-0.4) % Neut % (Auto) (45-73) % Lymph % (Auto) (20-40) % [place] % (Auto) (2-11) % Eos % (Auto) (0-4) % Baso % (Auto) (0-2) % Lymph # (Auto) (1.2-4.9) X10*3/uL [place] # (Auto) (0.1-1.2) X10*3/uL Eos # (Auto) (0.0-0.4) X10*3/uL Baso # (Auto) (0.0-0.2) X10*3/uL Abs Immat Gran (auto) (0.00-0.03) X10*3/uL Absolute Neuts (auto) (2.0-8.3) X10*3/uL Absolute Nucleated RBC (0.0-0.012) X10*3/uL Nucleated RBC % (auto) (0.0-0.2) /100WBC Sodium (135-145) mmol/L Potassium (3.3-5.1) mmol/L Chloride (96-108) mmol/L Carbon Dioxide (22-29) mmol/L Anion Gap (12-20) BUN (9-16) mg/dL Creatinine (0.5-1.4) mg/dL Estim Creat Clear Calc Estimated GFR Random Glucose (60-115) mg/dL Lactic Acid 4.6 H* (0.5-2.0) mmol/L Calcium (8.4-10.2) mg/dL Magnesium (1.6-2.6) mg/dL Total Bilirubin (0.0-1.0) mg/dL Direct Bilirubin (0.0-0.5) mg/dL AST (5-31) U/L ALT (0-31) U/L Alkaline Phosphatase (39-117) U/L Troponin I High Sens 9.6 D (<3.5-17.0) ng/L B-Natriuretic Peptide 24 (<100) pg/mL Total Protein (6.5-8.0) g/dL Albumin (3.5-5.0) g/dL COVID-19 (AIDAN) (Negative) COVID-19 Clin Com ECG Data Attestation: I personally reviewed and interpreted this ECG as follows: ECG interpretation date: 01/19/21 ECG interpretation time: 09:36 Prior ECG tracings: available for review Interpretation: EKG sinus tachycardia with a rate of 126 TN interval 138 QTC 469 No STEMI/nonischemic Discharge Plan Discharge Clinical Impression: COPD (chronic obstructive pulmonary disease) Qualifiers: COPD type: unspecified COPD Qualified Code(s): J44.9 - Chronic obstructive pulmonary disease, unspecified Patient Disposition: Admitted As Inpatient
[2021-01-19 08:48] LABS: Alanine Aminotransferase 16 U/L (0-31); Alkaline Phosphatase 100 U/L (39-117); Anion Gap 19 (12-20); Aspartate Amino Transferase 26 U/L (5-31); Bilirubin Direct < 0.2 mg/dL (0.0-0.5); Bilirubin Total 0.3 mg/dL (0.0-1.0); Blood Urea Nitrogen 11 mg/dL (9-16); Carbon Dioxide 18 mmol/L (22-29); Chloride 107 mmol/L (96-108); Creatinine Clr Calc Pharmacy 47.1; Estimated Glomerular Filt Rate > 60; Glucose Random 117 mg/dL (60-115); Magnesium 2.1 mg/dL (1.6-2.6); Sodium 140 mmol/L (135-145); Total Protein 7.5 g/dL (6.5-8.0)
[2021-01-19 08:55] LABS: COVID-19 Test Negative (Negative)
[2021-01-19 08:55] LABS: B Type Natriuretic Peptide 24 pg/mL (<100); Troponin-I High Sensitivity 9.6 ng/L (<3.5-17.0)
[2021-01-19 08:57] LABS: Lactic Acid 4.6 mmol/L (0.5-2.0)
--- NOTE | 2021-01-19 09:11 | PC.NURSE ---
The pt presented to room 1 via EMS from home for evaluation of difficulty breathing despite using 2 albuterol neb treatments at home prior to arrival. On arrival RR 26-30 with obvious use of accessory muscles. Skin pale/warm/dry. She is able to speak in 2-3 word sentences due to dyspnea. On arrival RN and privider to bedside stat, iv access/lbs obtained, pt placed on all bedside monitors. She has c/o chest tightness, denies chest pain. STach rate 130's on bedside monitor. IV access x 2 obtained, RT at bedside, nebs being adminsitered. Will continue to monitor.,
[2021-01-19] MEDS: 0.9 % Sodium Chloride 500 ML 999 ML IV ×2 (09:20→10:00)
[2021-01-19 10:28] LABS: Reflex Lactate? Lactic Acid Added
--- NOTE | 2021-01-19 11:24 | P.HPHOSP_ITS ---
History of Present Illness Date of Service: 01/19/21 Attending physician on admission: Valentina Singh Chief Complaint: copd excerebation 74-year-old woman with history of COPD presented to the EDwith complaints of worsening shortness of breath. she says she is having worsening sob for 1-2 days and home copd meds did not help- Patient received 3 DuoNebs and Solu-Medrol by EMS [facility]. She reports a history of productive cough -occaional with yellowish sputum. ? Denies fever, chills, abdominal pain, LE edema, recent travel, sick contacts, chest pain, nausea, vomiting, diarrea. Lab imaging and EKG personally reviewed and interpreted: Chest x-ray was negative for any consolidation or effusion.? She was noted to be tachycardic and tachypneic, lactic acid was thought to be secondary to albuterol treatments.? trops neg , ekg sinus tachy , no leucocytosis or fevers or She was COVID negative, she did not have any fever leukocytosis.? the ER she was given albuterol, magnesium, Rocephin. ? She will be admitted for further management and treatment of acute on chronic COPD exacerbation Review of Systems Review of Systems: as above. Yes all other systems are reviewed and are n egative [facility] Medical History Acute exacerbation of COPD with asthma Allergic rhinitis COPD (chronic obstructive pulmonary disease) History of smoking at least 1 pack per day for at least 30 years Hypertension Hypothyroidism Family History Mother Heart problem Pertinent family history: family hx of asthma/copd-her aunt has it. Surgical History S/P cardiac cath Social History Household Members: None Housing: Apartment Do you presently have visiting nurse or other home services: No Alcohol intake: never Patient Tobacco Use Status: Former Tobacco user Tobacco use type: Cigarette Smoked in Last 30 Days: No e-Cigarette/Vaping Use: Never Used Patient Interested in Nicotine Replacement: No Patient Given Instructions on How to Stop Smoking: No Second Hand Smoke Exposure: No Use of substances other than those prescribed or required for medical reasons: No Have you been hit, kicked, punched, or otherwise hurt by someone within the past year? If so, by whom?: No Do you feel safe in your current relationship?: No Is there a partner from a previous relationship who is making you feel unsafe n ow?: No Are you made to feel afraid or neglected: No Advance Directives: Yes Advance Directives on File: Yes Advance Directives Date on File: 07/19/20 Do you have thoughts of harming others: None Do you have a plan to hurt others: No Plan Recently lost weight without trying: No Nutrition Risks: No Nutritional Risk Patient : No : No Poor oral hygiene: No service: No Current occupational status: retired [employer] Allergies Allergy/AdvReac Type Severity Reaction Status Date / Time penicillin V Allergy Intermediate rash Verified 11/09/20 10:32 Active Medications: Current Medications Aspirin (Aspirin Enteric Coated 81 Mg Tablet.) 81 mg PO QPM [facility] Atorvastatin Calcium (Atorvastatin Calcium 20 Mg Tablet) 20 mg PO DAILY [facility] Famotidine (Famotidine 20 Mg Tablet) 20 mg PO DAILY [facility] Guaifenesin (Guaifenesin 100 Mg/5 Ml Liquid) 5 ml PO Q4H [facility] Heparin Sodium (Porcine) (Heparin Sodium,Porcine 5,000 Unit/Ml Vial) 5,000 unit SUBCUT Q8H [facility] Sodium Chloride (Ns) 1,000 mls @ 100 mls/hr IVCONT .Q10H [facility] Ipratropium [place] (Ipratropium [place] 0.5 Mg/2.5 Ml Solution) 0.5 mg INHALE Q4H [facility] Ipratropium [place] (Ipratropium [place] 0.5 Mg/2.5 Ml Solution) 0.5 mg INHALE Q3H PRN PRN Reason: sob Levothyroxine Sodium (Levothyroxine Sodium 100 Mcg Tablet) 100 mcg PO DAILY [facility] Losartan Potassium (Losartan Potassium 50 Mg Tablet) 50 mg PO DAILY [facility]; Protocol Methylprednisolone Sodium Succinate (Methylprednisolone Sod Succ 40 Mg/Ml Vial) 40 mg IVPUSH BID [facility] Metoprolol Succinate (Metoprolol Succinate Er 50 Mg Tab.Er.24h) 50 mg PO DAILY [facility]; Protocol Non-Formulary Medication (Budesonide-Formoterol [Symbicort]) 1 puff INHALE BID [facility] Pharmacy Consult (Consult Rx Perform Med Rec) 1 each MISCELLANE ONCE PRN PRN Reason: Consult order Sodium Chloride (0.9 % Sodium Chloride Flush 3 Ml Syringe) 3 ml IVFLUSH QSHIFT [facility] Home Medications Medication Instructions Recorded Confirmed Last Taken Type atorvastatin 20 mg tablet 20 mg PO DAILY 12/28/19 01/19/21 01/18/21 History losartan 50 mg tablet 50 mg PO DAILY 12/28/19 01/19/21 01/18/21 History metoprolol succinate 50 mg 50 mg PO DAILY 03/06/20 01/19/21 01/18/21 History tablet,extended release 24 hr aspirin 81 mg tablet,delayed 81 mg PO QPM 07/19/20 01/19/21 01/18/21 History release budesonide-formoterol HFA 80 1 puff INHALATION BID 01/19/21 01/19/21 01/18/21 History mcg-4.5 mcg/actuation aerosol inhaler (Symbicort) levothyroxine 100 mcg tablet 1 tab PO DAILY 01/19/21 01/19/21 01/18/21 History Physical Exam Vital Signs and Narrative: Vital Signs: Last Vital Signs Temp 98 F 01/19/21 10:46 Pulse 124 H 01/19/21 11:15 Resp 20 01/19/21 11:15 BP 130/68 01/19/21 11:15 Pulse Ox 96 01/19/21 11:15 Oxygen Flow Rate 3 01/19/21 08:06 Body Mass Index 23.9 Physical exam: Appearance: Alert.? Oriented X3.speak with short sentences distress, still sob? Eyes: Pupils equal, round and reactive to light.? Sclera nonicteric.? ENT: Pharynx normal.? Moist mucous membranes. cvs: rrr, [id number] , no murmur res: b/l wheezing abd: no rebound or guarding ,nt, bs present. ext pulses present , no cyanosis ,Gait well balanced well coordinated. neuro: axo3 , nonfocal. Results Labs CBC and Chem 7: 01/19/21 08:24 01/19/21 08:24 Labs: Laboratory Results - last 24 hr 01/19/21 01/19/21 01/19/21 08:23 08:24 08:24 MCV 91.9 MCH 30.1 MCHC 32.7 RDW 13.1 Plt Count 269 MPV 9.5 Immature Gran % (Auto) 0.4 Neut % (Auto) 66.9 Lymph % (Auto) 19.8 L [place] % (Auto) 5.0 Eos % (Auto) 6.5 H Baso % (Auto) 1.4 Lymph # (Auto) 1.9 [place] # (Auto) 0.5 Eos # (Auto) 0.6 H Baso # (Auto) 0.1 Abs Immat Gran (auto) 0.04 H Absolute Neuts (auto) 6.6 Absolute Nucleated RBC 0.000 Nucleated RBC % (auto) 0.0 Anion Gap 19 Estim Creat Clear Calc 47.1 Estimated GFR > 60 Random Glucose 117 H Lactic Acid Calcium 9.0 Magnesium 2.1 Total Bilirubin 0.3 Direct Bilirubin < 0.2 AST 26 ALT 16 Alkaline Phosphatase 100 D Troponin I High Sens B-Natriuretic Peptide Total Protein 7.5 Albumin 5.0 COVID-19 (AIDAN) Negative COVID-19 Clin Com See Note 01/19/21 01/19/21 08:24 08:24 MCV MCH MCHC RDW Plt Count MPV Immature Gran % (Auto) Neut % (Auto) Lymph % (Auto) [place] % (Auto) Eos % (Auto) Baso % (Auto) Lymph # (Auto) [place] # (Auto) Eos # (Auto) Baso # (Auto) Abs Immat Gran (auto) Absolute Neuts (auto) Absolute Nucleated RBC Nucleated RBC % (auto) Anion Gap Estim Creat Clear Calc Estimated GFR Random Glucose Lactic Acid 4.6 H* Calcium Magnesium Total Bilirubin Direct Bilirubin AST ALT Alkaline Phosphatase Troponin I High Sens 9.6 D B-Natriuretic Peptide 24 Total Protein Albumin COVID-19 (AIDAN) COVID-19 Clin Com Imaging Radiologist's Impressions: Impressions Chest X-Ray 01/19/21 08:20 IMPRESSION: Unremarkable chest examination. Assessment and Plan (1) Asthma with COPD with exacerbation: Status: Acute (2) COPD (chronic obstructive pulmonary disease): Qualifiers: COPD type: unspecified COPD Qualified Code(s): J44.9 - Chronic obstructive pulmonary disease, unspecified Status: Acute (3) Elevated troponin: Status: Acute 74-year-old woman admitted with acute COPD exacerbation with no hypoxia 1.Acute hypoxemic respiratory failrue sec COPD exacerbation. No consolidation on chest x-ray still sob , talking in short sentences Solu-Medrol,Schedule ipratropium,Supplemental oxygen as needed,Robitussin Tachycardia and tachypnea secondary to COPD and treatments not sepsis lactic acid repeated around 4.6-4.7 lactic acidosis also deu to nebs 2.History of coronary artery disease repeat trops -? mild demand related hypoxia/tachycardia since ekg sinus tachy , no chest pain will add echo ,since last echo 2013 : ef 60-65% , seems fine Continue aspirin, statin and beta-vanessa if develops chest pain then will repeat ekg and troponins 3.Hypertension.? Stable blood pressure.? Continue loratadine 4.Hypothyroidism.? Continue levothyroxine DVT prophylaxis with heparin Quality Stroke Does the patient have a stroke diagnosis?: No VTE Prior VTE?: No VTE Risk Level:: Medical - moderate - high VTE Device Contraindication: N/A - Device Ordered VTE Drug Contraindication: N/A - Med Ordered
--- NOTE | 2021-01-19 12:00 | PC.NURSE ---
nursing report given to January on med surg. The pt i resting in bed much more comfortable than on arrival. RR 22, non-labored, skin pink and warm ancd dry. She is speaking in 5-6 word sentences. On 3L NC O2 sat's are 95% or better. Awaiting transport to inpatient bed asignment.
[2021-01-19 12:38] LABS: ~Lactic Acid-LAB USE ONLY 4.7 mmol/L (0.5-2.0)
[2021-01-19] MEDS: Ipratropium Bromide 0.5 MG/2.5 ML SOLUTION INHALE ×3 (13:10→19:41)
[2021-01-19] MEDS: methylPREDNISolone Sod Succ 40 MG/ML VIAL IVPUSH ×2 (13:20→22:13)
[2021-01-19] MEDS: Heparin Sodium,Porcine 5,000 UNIT/ML VIAL 5000 UNIT SUBCUT ×2 (13:22→22:12)
[2021-01-19] MEDS: guaiFENesin 100 MG/5 ML LIQUID PO ×3 (13:23→22:12)
[2021-01-19] MEDS: Aspirin Enteric Coated 81 MG TABLET.DR PO (13:23)
[2021-01-19] MEDS: Famotidine 20 MG TABLET PO (13:23)
[2021-01-19] MEDS: Loratadine 10 MG TABLET PO (13:23)
[2021-01-19 13:28] LABS: Procalcitonin 0.02 ng/mL
[2021-01-19] MEDS: Magnesium Sulfate/D5W 1 GM/100 ML PIGGYBACK IV (13:30)
[2021-01-19] MEDS: 0.9 % Sodium Chloride 1,000 ML 100 ML IVCONT (13:30)
[2021-01-19 13:49] LABS: Reflex Lactate? 2 Y
--- NOTE | 2021-01-19 14:36 | MHC.CM.PN ---
IMM 01/19/21, EMR REVIEWED, PT ADMITTED W/COPD EXAC, CM MET W/PT WHO IS A&OX4, PT REPORTS SHE LIVES AT [facility], HAS A NEBULIZER AND A WALKER SHE DOESN'T USE, PT HAS NO HOME SERVICES AND WOULD LIKE [facility]ON, D/C, PT VERIFIES PCP ELLIE BAEZ AND HCP CATHY BARRY [phone], COPY ON FILE FROM PREVIOUS ADMIT. D/C PLAN: HOME W/[facility], FAMILY FOR TRANSPORT
[2021-01-19 14:47] LABS: ~Lactic Acid-LAB USE ONLY 4.6 mmol/L (0.5-2.0)
[2021-01-19 18:21] LABS: Lactic Acid 5.3 mmol/L (0.5-2.0)
[2021-01-19 19:30] LABS: Reflex Lactate? Lactic Acid Added
[2021-01-19 21:48] LABS: Reflex Lactate? Lactic Acid Added
[2021-01-19 22:36] LABS: ~Lactic Acid-LAB USE ONLY 1.6 mmol/L (0.5-2.0)
[2021-01-20] VITALS (11 sets, daily range): BP systolic 112–144; BP diastolic 61–87; PULSE 74–109; RESP 17–20; TEMP 36.2–36.9; O2SAT 94–98
[2021-01-20] MEDS: guaiFENesin 100 MG/5 ML LIQUID PO ×6 (02:21→23:48)
[2021-01-20] MEDS: Heparin Sodium,Porcine 5,000 UNIT/ML VIAL 5000 UNIT SUBCUT ×3 (02:22→20:24)
[2021-01-20] MEDS: Ipratropium Bromide 0.5 MG/2.5 ML SOLUTION INHALE ×5 (02:27→18:31)
[2021-01-20] MEDS: 0.9 % Sodium Chloride 1,000 ML 100 ML IVCONT (03:37)
[2021-01-20] MEDS: Levothyroxine Sodium 100 MCG TABLET PO (06:37)
[2021-01-20 06:41] LABS: Anion Gap 15 (12-20); Blood Urea Nitrogen 15 mg/dL (9-16); Calcium 8.3 mg/dL (8.4-10.2); Carbon Dioxide 19 mmol/L (22-29); Chloride 112 mmol/L (96-108); Estimated Glomerular Filt Rate > 60; Glucose Random 132 mg/dL (60-115); Magnesium 2.5 mg/dL (1.6-2.6); Potassium 4.5 mmol/L (3.3-5.1); Sodium 141 mmol/L (135-145)
[2021-01-20 06:45] LABS: Troponin-I High Sensitivity 18.7 ng/L (<3.5-17.0)
[2021-01-20] MEDS: Fluticasone/Vilanterol 100/25 BLST.W.DEV 1 PUFF INHALE (07:44)
[2021-01-20] MEDS: Metoprolol Succinate ER 50 MG TAB.ER.24H PO (08:49)
[2021-01-20] MEDS: Losartan Potassium 50 MG TABLET PO (08:49)
[2021-01-20] MEDS: Aspirin Enteric Coated 81 MG TABLET.DR PO (08:49)
[2021-01-20] MEDS: Famotidine 20 MG TABLET PO (08:49)
[2021-01-20] MEDS: methylPREDNISolone Sod Succ 40 MG/ML VIAL IVPUSH ×2 (08:50→20:25)
--- NOTE | 2021-01-20 11:27 | P.PNIM_ITS ---
Subjective Subjective Date of Service: 01/20/21 Interval History: copd excerebation Review of Systems Shortness of breath seems improving still has coughing spells. Denies any chest pain or abdominal pain or palpitations or fever or chills. Physical Exam Vital Signs: Vital Signs: Last Vital Signs Temp 98.4 F 01/20/21 07:22 Pulse 86 01/20/21 07:22 Resp 20 01/20/21 07:22 BP 128/70 01/20/21 07:22 Pulse Ox 97 01/20/21 07:22 Oxygen Flow Rate 3 01/19/21 08:06 Body Mass Index 23.9 Appearance: Alert.? Oriented X3.slightly better , able to talk more today. Eyes: Pupils equal, round and reactive to light.? Sclera nonicteric.? ENT: Pharynx normal.? Moist mucous membranes. cvs: rrr, [id number] , no murmur res: b/l wheezing abd: no rebound or guarding ,nt, bs present. ext pulses present , no cyanosis ,Gait well balanced well coordinated. neuro: axo3 , nonfocal. Objective Data Active Medications Aspirin (Aspirin Enteric Coated 81 Mg Tablet.) 81 mg PO DAILY [facility] Last Admin: 01/20/21 08:49 Dose: 81 mg Documented by: RITA Atorvastatin Calcium (Atorvastatin Calcium 20 Mg Tablet) 20 mg PO BEDTIME [facility] Famotidine (Famotidine 20 Mg Tablet) 20 mg PO DAILY [facility] Last Admin: 01/20/21 08:49 Dose: 20 mg Documented by: RITA Fluticasone/Vilanterol (Fluticasone/Vilanterol 100/25 Blst.W.Dev) 1 puff INHALE RDAILY [facility] Last Admin: 01/20/21 07:44 Dose: 1 puff Documented by: DOROTA Guaifenesin (Guaifenesin 100 Mg/5 Ml Liquid) 5 ml PO Q4H [facility] Last Admin: 01/20/21 08:49 Dose: 5 ml Documented by: RITA Heparin Sodium (Porcine) (Heparin Sodium,Porcine 5,000 Unit/Ml Vial) 5,000 unit SUBCUT Q8H [facility] Last Admin: 01/20/21 02:22 Dose: 5,000 unit Documented by: KYLE Ipratropium [place] (Ipratropium [place] 0.5 Mg/2.5 Ml Solution) 0.5 mg INHALE RQ4H [facility] Last Admin: 01/20/21 10:44 Dose: 0.5 mg Documented by: DOROTA Ipratropium [place] (Ipratropium [place] 0.5 Mg/2.5 Ml Solution) 0.5 mg INHALE Q3H PRN PRN Reason: sob Last Admin: 01/19/21 13:10 Dose: 0.5 mg Documented by: DOROTA Levothyroxine Sodium (Levothyroxine Sodium 100 Mcg Tablet) 100 mcg PO DAILY@0600 [facility] Last Admin: 01/20/21 06:37 Dose: 100 mcg Documented by: KYLE Loratadine (Loratadine 10 Mg Tablet) 10 mg PO DAILY [facility] Last Admin: 01/20/21 08:49 Dose: Not Given Documented by: RITA Non-Admin Reason: Med Not Available Losartan Potassium (Losartan Potassium 50 Mg Tablet) 50 mg PO DAILY [facility]; Protocol Last Admin: 01/20/21 08:49 Dose: 50 mg Documented by: RITA Methylprednisolone Sodium Succinate (Methylprednisolone Sod Succ 40 Mg/Ml Vial) 40 mg IVPUSH BID [facility] Last Admin: 01/20/21 08:50 Dose: 40 mg Documented by: RITA Metoprolol Succinate (Metoprolol Succinate Er 50 Mg Tab.Er.24h) 50 mg PO DAILY [facility]; Protocol Last Admin: 01/20/21 08:49 Dose: 50 mg Documented by: RITA Pharmacy Consult (Consult Rx Perform Med Rec) 1 each MISCELLANE ONCE PRN PRN Reason: Consult order Sodium Chloride (0.9 % Sodium Chloride Flush 3 Ml Syringe) 3 ml IVFLUSH QSHIFT [facility] Last Admin: 01/20/21 09:28 Dose: Not Given Documented by: RITA Non-Admin Reason: IV Running Labs CBC & Chem 7: 01/19/21 08:24 01/20/21 06:10 Labs: Laboratory Results - last 24 hr 01/19/21 01/19/21 01/19/21 08:24 11:40 11:40 Anion Gap Estim Creat Clear Calc Estimated GFR Random Glucose Lactic Acid Lactic Acid Fup @ 2Hr 4.7 H* Lactic Acid Fup @ 4Hr Calcium Magnesium Troponin I High Sens 18.7 H* D Procalcitonin 0.02 01/19/21 01/19/21 01/19/21 14:01 17:19 19:44 Anion Gap Estim Creat Clear Calc Estimated GFR Random Glucose Lactic Acid 5.3 H* 4.0 H* Lactic Acid Fup @ 2Hr Lactic Acid Fup @ 4Hr 4.6 H* Calcium Magnesium Troponin I High Sens Procalcitonin 01/19/21 01/20/21 22:19 06:10 Anion Gap 15 Estim Creat Clear Calc 52.0 Estimated GFR > 60 Random Glucose 132 H Lactic Acid Lactic Acid Fup @ 2Hr 1.6 Lactic Acid Fup @ 4Hr Calcium 8.3 L D Magnesium 2.5 Troponin I High Sens Procalcitonin Microbiology Microbiology Results: Microbiology 01/19/21 08:43 Blood Culture - Preliminary Blood - Venous No growth after 24 hours. 01/19/21 08:24 Blood Culture - Preliminary Blood - Venous No growth after 24 hours. Assessment and Plan (1) Asthma with COPD with exacerbation: Status: Acute (2) Elevated troponin: Status: Acute Assessment and Plan: 74-year-old woman admitted with acute COPD exacerbation with no hypoxia 1.Acute hypoxemic respiratory failrue sec? COPD exacerbation. No consolidation on chest x-ray still sob , talking in short sentences Solu-Medrol,Schedule ipratropium,Supplemental oxygen as needed,Robitussin Tachycardia and tachypnea secondary to COPD and treatments not sepsis lactic acid repeated normalised lactic acidosis also deu to nebs 2.History of coronary artery disease repeat trops -? mild demand related hypoxia/tachycardia? since ekg sinus tachy , no chest pain will add echo ,since last echo 2013 : ef 60-65% , seems fine Continue aspirin, statin and beta-vanessa if develops chest pain then will repeat ekg and troponins 3.Hypertension.? Stable blood pressure.? Continue loratadine 4.Hypothyroidism.? Continue levothyroxine DVT prophylaxis with heparin Quality Stroke Does the patient have a stroke diagnosis?: No VTE Prior VTE?: No VTE Risk Level:: Medical - moderate - high VTE Device Contraindication: N/A - Device Ordered VTE Drug Contraindication: N/A - Med Ordered
[2021-01-20] MEDS: 0.9 % Sodium Chloride Flush 3 ML SYRINGE IVFLUSH ×2 (15:41→23:48)
[2021-01-20] MEDS: Atorvastatin Calcium 20 MG TABLET PO (20:25)
[2021-01-21] VITALS (14 sets, daily range): BP systolic 102–138; BP diastolic 60–79; PULSE 18–102; RESP 16–21; TEMP 36.4–37.1; O2SAT 91–98
[2021-01-21] MEDS: Ipratropium Bromide 0.5 MG/2.5 ML SOLUTION INHALE ×3 (00:21→08:14)
[2021-01-21] MEDS: guaiFENesin 100 MG/5 ML LIQUID PO ×5 (03:54→21:14)
[2021-01-21] MEDS: Heparin Sodium,Porcine 5,000 UNIT/ML VIAL 5000 UNIT SUBCUT ×3 (03:55→21:14)
[2021-01-21] MEDS: Levothyroxine Sodium 100 MCG TABLET PO (06:32)
--- NOTE | 2021-01-21 07:30 | CA_ITS ---
Transthoracic Echocardiogram Patient (Last, First, Middle): Sheri Torres, Gender: Female Date of : 1945 Age: 75 Procedure Date: 01/21/2021 Procedure Type: Transthoracic Echocardiogram Location: S3E Height: 160.02 cm Weight: 61.24 kg BSA: 1.64 m2 Heart Rate: bpm BP: 126 / 74 mmHg [employer] Machinist: BROOKLYN/SRUTHI Referring MD: Valentina Singh MD Symptoms: elevated troponins Study Quality: Fair Conclusions: - Normal left ventricular size, thickness, systolic function, and wall motion. The visually estimated ejection fraction is between 60-65%. Findings Left Ventricle Normal left ventricular size, thickness, systolic function, and wall motion. The visually estimated ejection fraction is between 60-65%. There is no evidence of regional wall motion abnormalities. Diastolic function is indeterminate on the basis of available data. Right Ventricle Normal right ventricular cavity size and systolic function. Pericardium/Pleural There is no evidence of pericardial effusion. Prior Study Comparison No significant change compared to prior study dated: 08/17/2020. Measurements 2D Linear Measurements IVSd: 0.86 0.6-0.9/0.6-1.0 cm LVIDd: 3.10 3.9-5.3/4.2-5.9 cm LVIDd Index: 1.89 2.4-3.2/2.2-3.1 cm/m2 LVIDs: 2.39 2.0-3.6 cm LVPWd: 0.85 0.7-1.1 cm LV Mass: 85.04 67-162/88-224 g LV Mass Index: 51.86 43-95/49-115 g/m2 2D Systolic Function EF 4C: 62.60 >55% EF 2C: 56.90 >55% EF BiP: 59.80 >55% Mitral Valve MV Pk E: 0.89 MV PK A: 0.82 MV Decel Time: 137.00 E/A: 1.10 E'Lateral: 7.83 E'Medial: 8.70 E/E' Med: 10.30 E/E' Lat: 11.40 PHT: 40.00 MVA PHT: 5.50 Decel [place]: 6.49 Diastolic Function MV Pk E: 0.89 MV Pk A: 0.82 E/A: 1.10 E'Medial: 8.70 E/E' Med: 10.30 E' Laterial: 7.83 E/E' Lat: 11.40 Updated in Other Vendor System with Status of Final Farooq Woodruff MD electronically signed on 01/21/2021 7:37:53 PM with status of Final
[2021-01-21] MEDS: Fluticasone/Vilanterol 100/25 BLST.W.DEV 1 PUFF INHALE (08:14)
[2021-01-21] MEDS: Metoprolol Succinate ER 50 MG TAB.ER.24H PO (08:27)
[2021-01-21] MEDS: methylPREDNISolone Sod Succ 40 MG/ML VIAL IVPUSH ×2 (08:27→21:14)
[2021-01-21] MEDS: 0.9 % Sodium Chloride Flush 3 ML SYRINGE IVFLUSH ×2 (08:27→16:34)
[2021-01-21] MEDS: Loratadine 10 MG TABLET PO (08:29)
[2021-01-21] MEDS: Losartan Potassium 50 MG TABLET PO (08:29)
[2021-01-21] MEDS: Aspirin Enteric Coated 81 MG TABLET.DR PO (08:29)
[2021-01-21] MEDS: Famotidine 20 MG TABLET PO (08:30)
--- NOTE | 2021-01-21 09:47 | P.PNIM_ITS ---
Subjective Subjective Date of Service: 01/21/21 Interval History: copd exceerbation Review of Systems Still short of breath overnight had a more short of breath Still has coughing spells Denies any new complaint of chest pain or abdominal pain or fever or chills or nausea or vomiting Denies any cough Denies any weakness or numbness. Physical Exam Vital Signs: Vital Signs: Last Vital Signs Temp 98.2 F 01/21/21 08:00 Pulse 82 01/21/21 08:29 Resp 21 H 01/21/21 08:00 BP 138/79 01/21/21 08:29 Pulse Ox 94 01/21/21 08:00 Oxygen Flow Rate 3 01/19/21 08:06 Body Mass Index 23.9 Appearance: Alert.? Oriented X3.slightly better , able to talk more today. Eyes: Pupils equal, round and reactive to light.? Sclera nonicteric.? ENT: Pharynx normal.? Moist mucous membranes. cvs: rrr, [id number] , no murmur res: b/l wheezing abd: no rebound or guarding ,nt, bs present. ext pulses present , no cyanosis ,Gait well balanced well coordinated. neuro: axo3 , nonfocal. Objective Data Active Medications Albuterol/Ipratropium (Albuterol/Iprat 2.5/0.5mg 3 Ml Ampul.Neb) 3 ml INHALE RQ4H [facility] Albuterol/Ipratropium (Albuterol/Iprat 2.5/0.5mg 3 Ml Ampul.Neb) 3 ml INHALE Q3H PRN PRN Reason: sob Aspirin (Aspirin Enteric Coated 81 Mg Tablet.) 81 mg PO DAILY [facility] Last Admin: 01/21/21 08:29 Dose: 81 mg Documented by: ROBBIE Atorvastatin Calcium (Atorvastatin Calcium 20 Mg Tablet) 20 mg PO BEDTIME [facility] Last Admin: 01/20/21 20:25 Dose: 20 mg Documented by: YASMINE Famotidine (Famotidine 20 Mg Tablet) 20 mg PO DAILY [facility] Last Admin: 01/21/21 08:30 Dose: 20 mg Documented by: ROBBIE Fluticasone/Vilanterol (Fluticasone/Vilanterol 100/25 Blst.W.Dev) 1 puff INHALE RDAILY [facility] Last Admin: 01/21/21 08:14 Dose: 1 puff Documented by: ALESSANDRO Guaifenesin (Guaifenesin 100 Mg/5 Ml Liquid) 5 ml PO Q4H [facility] Last Admin: 01/21/21 08:27 Dose: 5 ml Documented by: ROBBIE Heparin Sodium (Porcine) (Heparin Sodium,Porcine 5,000 Unit/Ml Vial) 5,000 unit SUBCUT Q8H [facility] Last Admin: 01/21/21 03:55 Dose: 5,000 unit Documented by: SHERIF Levothyroxine Sodium (Levothyroxine Sodium 100 Mcg Tablet) 100 mcg PO DAILY@0600 [facility] Last Admin: 01/21/21 06:32 Dose: 100 mcg Documented by: SHERIF Loratadine (Loratadine 10 Mg Tablet) 10 mg PO DAILY [facility] Last Admin: 01/21/21 08:29 Dose: 10 mg Documented by: ROBBIE Losartan Potassium (Losartan Potassium 50 Mg Tablet) 50 mg PO DAILY [facility]; Protocol Last Admin: 01/21/21 08:29 Dose: 50 mg Documented by: ROBBIE Methylprednisolone Sodium Succinate (Methylprednisolone Sod Succ 40 Mg/Ml Vial) 40 mg IVPUSH BID [facility] Last Admin: 01/21/21 08:27 Dose: 40 mg Documented by: ROBBIE Metoprolol Succinate (Metoprolol Succinate Er 50 Mg Tab.Er.24h) 50 mg PO DAILY [facility]; Protocol Last Admin: 01/21/21 08:27 Dose: 50 mg Documented by: ROBBIE Pharmacy Consult (Consult Rx Perform Med Rec) 1 each MISCELLANE ONCE PRN PRN Reason: Consult order Sodium Chloride (0.9 % Sodium Chloride Flush 3 Ml Syringe) 3 ml IVFLUSH QSHIFT [facility] Last Admin: 01/21/21 08:27 Dose: 3 ml Documented by: ROBBIE Labs CBC & Chem 7: 01/19/21 08:24 01/20/21 06:10 Microbiology Microbiology Results: Microbiology 01/19/21 08:43 Blood Culture - Preliminary Blood - Venous No growth after 24 hours. 01/19/21 08:24 Blood Culture - Preliminary Blood - Venous No growth after 24 hours. Assessment and Plan (1) Asthma with COPD with exacerbation: Status: Acute Assessment and Plan: 74-year-old woman admitted with acute COPD exacerbation with no hypoxia 1.Acute hypoxemic respiratory failrue sec? COPD exacerbation. No consolidation on chest x-ray still sob , talking in short sentences contineu Solu-Medrol,Schedule changed to duonebs from ipratop,Supplemental oxygen as needed,Robitussin Tachycardia and tachypnea secondary to COPD and treatments not sepsis lactic acid repeated normalised lactic acidosis also deu to nebs 2.History of coronary artery disease repeat trops -? mild demand related hypoxia/tachycardia? since ekg sinus tachy , no chest pain repeat echo ,since last echo 2013 : ef 60-65% , seems fine Continue aspirin, statin and beta-vanessa if develops chest pain then will repeat ekg and troponins 3.Hypertension.? Stable blood pressure.? Continue loratadine 4.Hypothyroidism.? Continue levothyroxine DVT prophylaxis with heparin Quality Stroke Does the patient have a stroke diagnosis?: No VTE Prior VTE?: No VTE Risk Level:: Medical - moderate - high VTE Device Contraindication: N/A - Device Ordered VTE Drug Contraindication: N/A - Med Ordered
[2021-01-21] MEDS: Albuterol/Iprat 2.5/0.5MG 3 ML AMPUL.NEB INHALE ×3 (11:16→20:09)
--- NOTE | 2021-01-21 12:10 | MHC.CM.PN ---
EMR REVIEWED, PER HOSPITALIST PT BECAME SOB OVERNIGHT, NEB TX'S CHANGED TO AMINTA SAM D/C 1-2 DAYS. CM WILL CONT TO FOLLOW D/C NEEDS. D/C PLAN: RETURN TO [facility] LIVING W/NEW VNA
[2021-01-21] MEDS: Atorvastatin Calcium 20 MG TABLET PO (21:14)
[2021-01-22] VITALS (9 sets, daily range): BP systolic 111–136; BP diastolic 61–73; PULSE 64–88; RESP 16–20; TEMP 36.3–36.8; O2SAT 93–97
[2021-01-22] MEDS: guaiFENesin 100 MG/5 ML LIQUID PO ×3 (00:27→12:12)
[2021-01-22] MEDS: 0.9 % Sodium Chloride Flush 3 ML SYRINGE IVFLUSH ×2 (00:27→08:10)
[2021-01-22] MEDS: Levothyroxine Sodium 100 MCG TABLET PO (05:53)
[2021-01-22] MEDS: Albuterol/Iprat 2.5/0.5MG 3 ML AMPUL.NEB INHALE ×2 (06:04→12:37)
[2021-01-22] MEDS: Aspirin Enteric Coated 81 MG TABLET.DR PO (08:08)
[2021-01-22] MEDS: methylPREDNISolone Sod Succ 40 MG/ML VIAL IVPUSH (08:08)
[2021-01-22] MEDS: Metoprolol Succinate ER 50 MG TAB.ER.24H PO (08:08)
[2021-01-22] MEDS: Losartan Potassium 50 MG TABLET PO (08:09)
[2021-01-22] MEDS: Famotidine 20 MG TABLET PO (08:10)
[2021-01-22] MEDS: Fluticasone/Vilanterol 100/25 BLST.W.DEV 1 PUFF INHALE (08:10)
[2021-01-22] MEDS: Loratadine 10 MG TABLET PO (08:10)
--- NOTE | 2021-01-22 11:34 | MHC.CM.PN ---
PT WEANING OFF OF O2 AND ANTICIPATE D/C HOME W/HVNA FOR HALFWAY WHEN READY, FRIEND OR DBV FOR TRANSPORT.
[2021-01-22] MEDS: Heparin Sodium,Porcine 5,000 UNIT/ML VIAL 5000 UNIT SUBCUT (12:12)
--- NOTE | 2021-01-22 13:16 | P.DS_ITS ---
DS: Providers Provider Date of Service: 01/22/21 Date of admission: 01/19/21 11:14 Primary care physician: Fili Leiva MD DS: Diagnosis Discharge Diagnosis (1) Asthma with COPD with exacerbation: Status: Acute DS: Summary Hospital Course Hospital Course: History of presenting illness Attending physician on admission: Valentina Singh Chief Complaint: copd excerebation 74-year-old woman with history of COPD presented to the EDwith complaints of worsening shortness of breath. she says she is having worsening sob for 1-2 days and home copd meds did not help- Patient received 3 DuoNebs and Solu-Medrol by [facility] [employer]. She reports a history of productive cough -occaional with yellowish sputum. ? Denies fever, chills, abdominal pain, LE edema, recent travel, sick contacts, chest pain, nausea, vomiting, diarrea. Lab imaging and EKG personally reviewed and interpreted: Chest x-ray was negative for any consolidation or effusion.? She was noted to be tachycardic and tachypneic, lactic acid was thought to be? secondary to albuterol treatments.? trops neg , ekg sinus tachy , no leucocytosis or fevers or She was COVID negative, she did not have any fever leukocytosis.? in ER she was given albuterol, magnesium, Rocephin. admitted for further management and treatment of acute on chronic COPD exacerbation Hospital course 74-year-old woman admitted with acute COPD exacerbation with Acute hypoxemic respiratory failrue chest x-ray showed no acute infiltrate, initially patient had lactic acidosis likely related to nebulizer treatment and also had mildly elevated troponin with no chest pain, patient treated with IV steroids cough medication and oxygen her shortness of breath has improved currently oxygenation is stable on room air, an echocardiogram showed stable ejection fraction with no wall motion abnormality therefore patient is being discharged home on tapering dose of steroids and cough medication, she has been recommended to continue all home medication, patient does not need oxygen upon discharge. Time Spent with Patient Time attestation: Total time spent providing and/or coordinating discharge services: Discharge coordination time: Greater than 30 minutes Quality: Stroke Does the patient have a stroke diagnosis?: No Physical Exam Vital Signs: Vital Signs: Last Vital Signs Temp 98.3 F 01/22/21 11:59 Pulse 64 01/22/21 12:39 Resp 18 01/22/21 11:59 BP 131/73 01/22/21 11:59 Pulse Ox 96 01/22/21 11:59 Oxygen Flow Rate 3 01/19/21 08:06 Body Mass Index 23.9 General alert oriented x3, acute distress. Neck supple no JVD. CVS regular rate rhythm, Respiratory lungs clear to auscultation, no respiratory distress, no wheeze, no rhonchi. Gastrointestinal abdomen soft, nontender, bowel sounds audible, no guarding , no rigidity. Extremities no edema. Neuro nonfocal ,speech clear. Skin no rash Psych appropriate affect DS: Data Data Completed and Pending Labs on day of discharge: Preliminary micro results at discharge 01/19/21 08:43 Blood Culture - Preliminary Blood - Venous No growth after 48 hours. 01/19/21 08:24 Blood Culture - Preliminary Blood - Venous No growth after 48 hours. Discharge Plan Discharge Patient Disposition: Home, Self-Care Discharge Diagnosis: copd excerebation, elevated troponins Referrals: Vidal MOELLER [Outside] - 1 Day ([facility], PLEASE CALL [phone] IF YOU DO NOT HEAR FROM A NURSE BY NOON TOMORROW 01/23.) Fili Leiva MD [Primary Care Provider] - 1 Week Discharge Medications: New prednisone 10 mg tablet 10 mg PO DAILY Qty: 5 RF: 0 benzonatate [Tessalon Perles] 100 mg capsule 100 mg PO TID Qty: 20 RF: 0 Continued albuterol sulfate 90 mcg/actuation HFA aerosol inhaler 2 puff INHALATION Q4H PRN (Reason: Respiratory Distress) 30 Days Qty: 1 RF: 6 albuterol sulfate 2.5 mg /3 mL (0.083 %) solution for nebulization 2.5 mg inhalation Q4-6H PRN (Reason: for wheezing) Qty: 150 RF: 0 atorvastatin 20 mg Tablet 20 mg PO DAILY RF: 0 losartan 50 mg Tablet 50 mg PO DAILY RF: 0 aspirin 81 mg Tablet,Delayed Release (Dr/Ec) 81 mg PO QPM RF: 0 levothyroxine 100 mcg tablet 1 tab PO DAILY RF: 0 budesonide-formoterol [Symbicort] 80-4.5 mcg/actuation HFA aerosol inhaler 1 puff inhalation BID RF: 0 metoprolol succinate 50 mg tablet extended release 24 hr 50 mg PO DAILY RF: 0 Discharge Orders: Discharge Order (Routine); Ordered 01/22/21 Ordered By: Lacy Puente Diet: advance to usual diet Activity on Discharge: As tolerated Stand Alone Forms: Patient Portal Discharge page Care Plan Goals: Patient came to the hospital due to COPD exacerbation: Started on nebs, steroids, p.r.n. oxygen seems to be improving-subsequently switched to p.o. steroids. In addition patient was found to have elevated troponin question probably demand related-her shortness of breath seems improving, so will get echo in the morning and plan discharge. Health Concerns: As above. Plan of Treatment: Outpatient follow-up with primary care physician in 10-06 Assessment: As above.
== END 2021-01-22 15:30 | disposition home or self-care (01) | DRG 190 ==
LOC: HO.ED 10:43 → HO.EDOVER 11:22 → HO.S3 11:27
PROVIDERS: Hospitalist; Internal Medicine; Physician Assistant; Admitting Provider Internal Medicine; Emergency Provider Emergency Medicine; PCP Internal Medicine; Visit Provider Hospitalist
DX: J44.1 Chronic obstructive pulmonary disease with (acute) exacerbation (principal); J96.01 Acute respiratory failure with hypoxia; J45.901 Unspecified asthma with (acute) exacerbation; I25.10 Atherosclerotic heart disease of native coronary artery without angina pectoris; E03.9 Hypothyroidism, unspecified; I10 Essential (primary) hypertension; Z20.822 Contact with and (suspected) exposure to COVID-19; Z87.891 Personal history of nicotine dependence; Z79.82 Long term (current) use of aspirin; Z79.890 Hormone replacement therapy; Z79.899 Other long term (current) drug therapy
CPT/HCPCS: 36415; 71045; 80048; 80076; 83605; 83735; 83880; 84145; 84484; 85025; 87040; 87635; 93005; 93308; 94640; 94644; 99285; J0696; J2920; J3475

== ENCOUNTER 2021-03-14 18:25 | Emergency (ER) | payer MEDICARE, SELFPAY ==
--- NOTE | 2021-03-14 18:45 | ED.CPR ---
HPI - CPR General Chief Complaint: Cardiac Arrest/CPR Stated Complaint: CARDIAC ARREST Time Seen by Provider: 03/14/21 18:44 Source: EMS Mode of arrival: EMS Limitations: other ( Patient is ) History of Present Illness HPI narrative: 75-year-old female with history of hypertension, hyperlipidemia, COPD. Brought in by EMS for cardiac arrest, initial dispatcher call was difficulty breathing, patient was found by EMS initially with agonal breathing, and pulse, sent shortly patient lost her pulse and became asystole with no pulse, patient was intubated by EMS in the field, patient was given several doses of epinephrine x7, patient had return of falls for few minutes then shortly lost pulse and became asystole, foot arrival to the emergency department patient is intubated, CPR is in progress, no pulse, asystole. Blood sugar was 130, patient was given 2 doses of epinephrine via right lower extremity IO, was given magnesium 2 g with no response, endotracheal intubation was checked by colitis call going through the cord, patient still pulseless and asystole was no spontaneous respiration this was pronounced at 18:33. contact information was obtained from The chart, tried to contact her friend Kingston Oneal a phone number [phone] with no answering. Related Data Home Medications Medication Instructions Recorded Confirmed atorvastatin 20 mg tablet 20 mg PO DAILY 12/28/19 01/19/21 losartan 50 mg tablet 50 mg PO DAILY 12/28/19 01/19/21 metoprolol succinate 50 mg 50 mg PO DAILY 03/06/20 01/19/21 tablet,extended release 24 hr aspirin 81 mg tablet,delayed 81 mg PO QPM 07/19/20 01/19/21 release budesonide-formoterol HFA 80 1 puff INHALATION BID 01/19/21 01/19/21 mcg-4.5 mcg/actuation aerosol inhaler (Symbicort) levothyroxine 100 mcg tablet 1 tab PO DAILY 01/19/21 01/19/21 Previous Rx's Medication Instructions Recorded albuterol sulfate 90 mcg/actuation 2 puff INHALATION Q4H PRN 30 Days 07/11/20 aerosol inhaler #1 ea albuterol sulfate 2.5 mg (3 mL) INHALATION Q4-6H PRN 12/28/20 #150 ml benzonatate 100 mg capsule 100 mg PO TID #20 cap 01/22/21 (Mickey Cooney) prednisone 10 mg tablet 10 mg PO DAILY #5 tab 01/22/21 Allergies Allergy/AdvReac Type Severity Reaction Status Date / Time penicillin V Allergy Intermediate rash Verified 11/09/20 10:32 Review of Systems Review of Systems: Yes Unobtainable due to mental condition [facility] Past Medical History Medical History Acute exacerbation of COPD with asthma Allergic rhinitis COPD (chronic obstructive pulmonary disease) History of smoking at least 1 pack per day for at least 30 years Hypertension Hypothyroidism Surgical History S/P cardiac cath Family History Family History Mother Heart problem Social History Social History Household Members: None Housing: Apartment Do you presently have visiting nurse or other home services: No Alcohol intake: never Patient Tobacco Use Status: Former Tobacco user Tobacco use type: Cigarette e-Cigarette/Vaping Use: Never Used Second Hand Smoke Exposure: No Advance Directives: Yes Advance Directives on File: Yes Advance Directives Date on File: 07/23/20 service: No Current occupational status: retired Physical Exam Vital Signs: Vital Signs: asystole, no spontaneous breathing intubated, no blood pressure is obtained. Appearance: Asystole, unresponsive. Head: Normal external exam. Normocephalic. Atraumatic. Eyes: Pupil is 3 mm fixed nonreactive. ENT: TM's Normal. . Neck: Normal inspection. CVS: Asystole no poles. Respiratory: No sub tenuous breathing, intubated. Abdomen: Soft Back: No trauma. Extremities: No lower extremity edema. no trauma Neuro: unresponsive. Course Course Course Narrative: 75-year-old female status post cardiac arrest with un successful resuscitation patient was pronounced at 18:33, attempt to contact Family By phone was unsuccessful. case was declined by medical case worker case number is [id number]. declined by Carlee Mcclendon. MDM - Cardiac Arrest/CPR Lab Data Labs: Lab Results 03/14/21 03/14/21 Range/Units 18:28 18:40 POC Glucose 130 H (60-115) mg/dL COVID-19 ([facility]) Negative (Negative) COVID-19 Clin Com See Note Discharge Plan Discharge Clinical Impression: Cardiac arrest Patient Disposition: Date/Time: 03/14/21 18:33
[2021-03-14 18:57] LABS: Glucose, Whole Blood 130 mg/dL (60-115)
--- NOTE | 2021-03-14 19:00 | PC.NURSE ---
@ [id number] [place] REQUESTS CALL OUT TO [employer], TAKES CALL BACK NUMBER AND SAYS SHE WILL CALL US BACK SOON
--- NOTE | 2021-03-14 19:12 | PC.NURSE ---
This RN called [facility] and spoke with Lico, no patient access coordinator available at this time, they will call ER back for further information. Referral number [id number] Oncoming RN Jhony notified
[2021-03-14 19:15] LABS: COVID-19 Test Negative (Negative)
--- NOTE | 2021-03-14 19:18 | PC.NURSE ---
This RN spoke with [facility]. They informed that they would be declining this PT for tissue donations.
--- NOTE | 2021-03-14 20:42 | PC.NURSE ---
@ 2027 RETURN CALL FROM [facility] [employer] TAKES PT DEMOGRAPHICS AND REQUESTS TO SPEAK WITH DR HIWOT [place] TAKES OVER CALL
--- NOTE | 2021-03-14 21:16 | PC.NURSE ---
PER DR MI CASE DECLINED BY [employer]ATE [employer] OFFICER [place] GIVEN
== END 2021-03-14 22:24 | disposition expired ==
PROVIDERS: Emergency Provider Emergency Medicine; PCP Internal Medicine
DX: I46.9 Cardiac arrest, cause unspecified (principal); Z20.822 Contact with and (suspected) exposure to COVID-19; I10 Essential (primary) hypertension; E78.5 Hyperlipidemia, unspecified; J44.9 Chronic obstructive pulmonary disease, unspecified; F17.200 Nicotine dependence, unspecified, uncomplicated
CPT/HCPCS: 36415; 82947; 87635; 96374; 96375; 99281; 99285; J0171; J3475